=== PATIENT | female | born 1960 | race Caucasian/White ===

== ENCOUNTER → 2018-03-24 12:59 | Outpatient (CLI) | payer OTHER, SELFPAY ==
--- NOTE | 2018-03-24 | DI.CT.S_ITS ---
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 7 mm thick coronal and sagittal MIP reformats were then acquired. For radiation dose reduction, the following was used: automated exposure control, adjustment of mA and/or kV according to patient size. COMPARISON: [facility], CR, CHEST 2 VIEW, 07/08/2017, 11:16. [facility], CT, THORAX WITH CONTRAST, 03/02/2015, 9:47. [facility], CT, PE STUDY (CTA CHEST), 07/22/2015, 20:45. [facility], CT, THORAX WITHOUT CONTRAST, 09/26/2016, 10:33. [facility], CT, THORAX WITHOUT CONTRAST, 03/27/2017, 10:56. FINDINGS: Image quality: Excellent. Lungs and pleura: Right upper lobe nodular consolidation is seen, with ill-defined margins an irregular configuration. However, this appears increased since 03/27/17, in particular involving the upper aspect. Additional subcentimeter nodular foci present within the right middle lobe, and lung bases bilaterally, are unchanged. There are numerous bibasilar cystic changes noted as before. No acute consolidation identified. No pleural effusion or pneumothorax. Mediastinum: Heart size is normal. No pericardial effusion. No mediastinal adenopathy by size criteria. Thoracic aorta and central pulmonary arteries are normal in size. Esophagus is normal in caliber. No hiatal hernia. Bones and chest wall: No suspicious bony lesions. No vertebral body compression fractures. No axillary or supraclavicular adenopathy by size criteria. Thyroid gland grossly unremarkable. Abdomen: Visualized upper abdominal solid organs and bowel loops appear normal in the absence of contrast. IMPRESSION: Continued indolent progression of ill-defined, spiculated nodule within the right upper lobe since 03/27/17. This is again suspicious for malignancy, potentially slowly tumor such as adenocarcinoma, as previously discussed on prior study dated 09/26/16. No pathologically enlarged hilar or mediastinal adenopathy identified. Recommend oncology consultation. Dictated by: Crow Garcia M.D. on 03/24/2018 at 13:22 Approved by: Crow Garcia M.D. on 03/24/2018 at 14:11
== END ==
PROVIDERS: Visit Provider Internal Medicine Critical Care Medicine
DX: J47.0 Bronchiectasis with acute lower respiratory infection (principal); R91.1 Solitary pulmonary nodule
CPT/HCPCS: 71250

== ENCOUNTER → 2018-06-25 08:02 | Outpatient (CLI) | payer OTHER, SELFPAY ==
--- NOTE | 2018-06-25 | DI.MRI.S_ITS ---
PROCEDURE: MR ABDOME PELVIS WWO CON INDICATIONS: Intra-abdominal and pelvic swelling, mass and lump. Additional clinical history indicates a 58-year-old female with lung carcinoma and an incidental finding of a pelvic adnexal cyst on PET CT scanning. Prior PET CT scanning head identifie 3.6 cm left adnexal low attenuation abnormality, indeterminate etiology and possibly a large cyst. TECHNIQUE: After the ingestion of oral contrast, coronal and axial HASTE, coronal 2-D FLASH in-and [id number] sequences. After the administration of contrast, coronal and axial VIBE or 2-D FLASH with fat saturation sequences acquired through the abdomen and pelvis. Optional diffusion weighted imaging and ADC may be performed. COMPARISON: [facility], [place], PET/CT NECK TO MID THIGH, 07/02/2012, 9:11. [facility], CT, CT CHEST WO CON, 03/24/2018, 13:03. FINDINGS: Image quality: Excellent. Bowel and peritoneum: Normal. Solid organs: Liver is normal in size and enhancement. Fatty infiltration throughout the liver. Gallbladder normal. Biliary system is non dilated, without findings to suggest primary sclerosing cholangitis. Pancreas is normal in morphology, without evidence for autoimmune pancreatitis. Spleen is normal in size and enhancement. No adrenal nodules. Both kidneys are normal in size and enhancement, without hydronephrosis. Nodes and vessels: No retroperitoneal or mesenteric adenopathy. Aorta and inferior vena cava are normal in size. Lung bases: No basal pleural effusions. Heart size is normal. Pelvis: No free pelvic fluid. Inferior bowel loops are normal in caliber. No inguinal hernias or adenopathy. The previously identified left adnexal ovoid sharply demarcated structure has enlarged, now currently measuring up to 6.5 cm AP and 4.7 cm transverse in this patient who is presumably postmenopausal at age 58. This cystic mass has a perceptible rim of enhancement without polypoid nodularity. Note is made of sigmoid diverticulosis without acute diverticulitis. Throughout the pelvis no cystic or solid mass lesion suggestive of peritoneal carcinomatosis is found. Bones and soft tissues: No ventral hernias. Bone marrow is normal in overall signal. No findings to suggest sacroiliitis. Femoral heads demonstrate no avascular necrosis. IMPRESSION: There has been interval significant enlargement of a cystic mass lesion at the left adnexa with reference to the prior PET CT scanning from June 2012. At that time the structure present had measured approximately 3.6 cm, and now has further enlarged measuring 6.5 x 4.7 cm. The rim of enhancement is a somewhat worrisome finding but this thin rim is not accompanied by a polypoid mass or evidence of adjacent adenopathy or peritoneal carcinomatosis. Given the presumed postmenopausal status of the patient and the relatively large cystic persistent and slowly enlarging mass at the left ovary followup by gynecological consultation is recommended. Dictated by: Maurice Oquendo M.D. on 06/25/2018 at 11:18 Approved by: Maurice Oquendo M.D. on 06/25/2018 at 11:54
== END ==
PROVIDERS: PCP General Practice; Visit Provider General Practice
DX: R19.00 Intra-abdominal and pelvic swelling, mass and lump, unspecified site (principal); C34.90 Malignant neoplasm of unspecified part of unspecified bronchus or lung
CPT/HCPCS: 72197; A9579

== ENCOUNTER 2018-08-16 13:00 | Emergency (ER) | payer OTHER, SELFPAY ==
[2018-08-16 13:04] VITALS: BP 153/78; PULSE 92; RESP 18; TEMP 36.4; O2SAT 92
--- NOTE | 2018-08-16 13:20 | DI.US.S_ITS ---
PROCEDURE: US PERIPH VENOUS LOW EXTREM LT INDICATIONS: sp lobectomy 08/06: now LLL swelling. in ED WR, may go to US. TECHNIQUE: Real-time imaging, as well as color and pulse Doppler interrogation, were performed of the lower extremity deep veins from the inguinal ligament to the popliteal fossa. COMPARISON: None. FINDINGS: The common femoral, femoral and popliteal veins are normally compressible, and free of intraluminal thrombus. Color and pulse Doppler demonstrate normal phasic intraluminal flow. There is normal augmentation response to distal compression maneuver. Edema noted in the left lower extremity. IMPRESSION: No evidence of deep vein thrombosis involving the left lower extremity. Dictated by: Marley Ellis MD, PhD on 08/16/2018 at 14:31 Approved by: Marley Ellis MD, PhD on 08/16/2018 at 14:31
[2018-08-16 14:33] VITALS: PULSE 88
[2018-08-16 14:34] VITALS: PULSE 88; RESP 18; O2SAT 89
[2018-08-16 14:35] VITALS: O2SAT 94
--- NOTE | 2018-08-16 15:20 | ED.EXTPRO ---
HPI - Extremity Problem <Christina Stein, [employer]ESSION[employer]-BC - Last Filed: 08/16/18 18:09> General Chief complaint: Extremity Problem,Nontraumatic Stated complaint: left foot, ankle, and mid calf swelling 24 hours Time Seen by Provider: 08/16/18 15:02 Source: patient and family Mode of arrival: ambulatory Limitations: no limitations History of Present Illness HPI Narrative: Patient is a 58-year-old female who presents with her with history of lung cancer and subsequent right upper lobe lobectomy on 08/06/2018. She presents with a chief complaint of left lower leg pain and swelling. She states that she noted some pain and swelling prior to being discharged postoperatively, but has gotten worse since her surgery. She called the on-call for CT service, who suggested that she be evaluated for possible DVT. She states that the pain has improved slightly over the past few days, but the swelling has become worse. She denies any chest pain, shortness of breath fever nausea or chills. She states she feels like she is moving well postoperatively and her is in accordance with this. She has not taken anything specifically for the leg pain. Related Data Home Medications Medication Instructions Recorded Confirmed Acyclovir (Zovirax) 400 mg PO Q DAY #0 08/15/09 ibuprofen 800 mg PO PRN #0 09/24/10 [CALCIUM WITH MAG] QDAY #0 05/24/11 fluticasone-salmeterol [Advair 1 puff INH BID #14 dose 05/25/12 Diskus] CA PANTOTHENATE/FOLIC ACID/VIT #0 07/31/12 (MULTIVITAMIN) CHOLECALCIFEROL (VITAMIN D) 2,000 units PO QDAY #0 07/31/12 [STIOLOTO] 2 puff INH Q DAY #0 06/23/17 fluticasone [Flovent HFA] #0 06/23/17 montelukast #0 06/23/17 Previous Rx's Medication Instructions Recorded azithromycin [Zithromax] 250 mg PO Q DAY #4 tab 04/26/16 hydrocodone-acetaminophen [Lortab 10 ml PO Q4HP PRN #100 04/26/16 Elixir] azithromycin [Zithromax Z-Fidel] 0 tab PO QDAY #6 tab 08/26/16 codeine-guaifenesin [Cheratussin 5 ml PO Q4HP PRN #120 ml 08/26/16 AC] albuterol sulfate 3 ml INH Q6HP PRN #25 ea 06/23/17 codeine-guaifenesin [Cheratussin 5 ml PO Q4HP PRN #118 ml 06/23/17 AC] prednisone 40 mg PO Q DAY #6 tab 06/23/17 azithromycin [Zithromax Z-Fidel] 0 tab PO QDAY #6 tab 06/26/17 prednisone 10 mg PO QDAY #45 tab 06/26/17 doxycycline hyclate 100 mg PO Q12H #20 cap 07/01/17 Allergies Allergy/AdvReac Type Severity Reaction Status Date / Time Sulfa (Sulfonamide Allergy Severe RESP Unverified 09/11/17 12:15 Antibiotics) DISTRESS bee pollen [BEE POLLEN] Allergy Unknown Unverified 09/11/17 12:15 Review of Systems <SHAUNA Diaz - Last Filed: 08/16/18 18:09> Review of Systems GENERAL: Denies chills, fatigue, malaise, fever, sweats. HEENT: Denies sinus pain, ear pain, sore throat, difficulty swallowing, dizziness. RESPIRATORY: See HPI CARDIOVASCULAR: Denies chest pain, palpitations, orthopnea, edema, GASTROINTESTINAL: Denies nausea, vomiting, abdominal pain, diarrhea, constipation, melena. : Denies dysuria, frequency, incontinence, hematuria, urinary Musculoskeletal: see HPI SKIN: Denies rash, skin lesions, or other NEUROLOGIC: Denies weakness, headache, numbness, change in speech, confusion, seizures, incoordination. PSYCHIATRIC: No concerning psychosocial issues. 12 point review of systems is negative except for those stated above PFSH <SHAUNA Diaz - Last Filed: 08/16/18 18:09> Surgical History S/P lobectomy of lung (Acute) Social History Smoking Status: Never smoker Social History Smoking Status: Never smoker Exam <JOSE Diaz - Last Filed: 08/16/18 18:09> Narrative Exam Narrative: GENERAL: This is a well-nourished, well-developed patient, in no acute distress HEAD: Atraumatic. Normocephalic. No temporal or scalp tenderness. EYES: Pupils equal round and reactive. Extraocular motions intact. No scleral icterus. No injection or drainage. ENT: Nose without bleeding, purulent drainage or septal hematoma. Throat without erythema, tonsillar hypertrophy or exudate. Uvula midline. Airway patent. NECK: Trachea midline. No JVD or lymphadenopathy. Supple, nontender, no meningeal signs. CARDIOVASCULAR: Regular rate and rhythm without murmurs, gallops, or rubs. RESPIRATORY: Clear to auscultation. Breath sounds equal bilaterally. No wheezes, rales, or rhonchi. On supplemental oxygen. GASTROINTESTINAL: Abdomen soft, non-tender, nondistended. No hepato-splenomegaly, or palpable masses. No guarding. EXTREMITIES: +1 pedal edema noted left foot. No edema noted right foot. Positive pedal pulses bilaterally. No tenderness to palpation of bilateral calves. BACK: Nontender without deformity or crepitance. No flank tenderness. NEURO: AOx3. SKIN: No rash or erythema. No erythema ecchymosis or abrasion noted left lower leg. Initial Vital Signs Initial Vital Signs: Vital Signs Temperature 97.6 F 08/16/18 13:04 Pulse Rate 92 H 08/16/18 13:04 Respiratory Rate 18 08/16/18 13:04 Blood Pressure 153/78 H 08/16/18 13:04 Pulse Oximetry 92 08/16/18 13:04 <Christina Bonilla DO - Last Filed: 08/16/18 19:49> Initial Vital Signs Initial Vital Signs: Vital Signs Temperature 97.6 F 08/16/18 13:04 Pulse Rate 92 H 08/16/18 13:04 Respiratory Rate 18 08/16/18 13:04 Blood Pressure 153/78 H 08/16/18 13:04 Pulse Oximetry 92 08/16/18 13:04 Course <UMA Diaz-BC - Last Filed: 08/16/18 18:09> Orders Ordered: ED Orders 08/16/18 13:20 US periph venous low extrem lt Stat Vital Signs - 8 hr 08/16/18 13:04 08/16/18 14:33 08/16/18 14:34 Temperature 97.6 F Pulse Rate 92 H 88 Pulse Rate [Left Dorsalis Pedis] 88 Respiratory Rate 18 18 Blood Pressure 153/78 H Pulse Oximetry 92 89 L 08/16/18 14:35 08/16/18 15:52 Temperature Pulse Rate 70 Pulse Rate [Left Dorsalis Pedis] Respiratory Rate 18 Blood Pressure 142/80 H Pulse Oximetry 94 92 <Christina Bonilla DO - Last Filed: 08/16/18 19:49> Orders Ordered: ED Orders 08/16/18 13:20 US periph venous low extrem lt Stat Vital Signs - 8 hr 08/16/18 13:04 08/16/18 14:33 08/16/18 14:34 Temperature 97.6 F Pulse Rate 92 H 88 Pulse Rate [Left Dorsalis Pedis] 88 Respiratory Rate 18 18 Blood Pressure 153/78 H Pulse Oximetry 92 89 L 08/16/18 14:35 08/16/18 15:52 Temperature Pulse Rate 70 Pulse Rate [Left Dorsalis Pedis] Respiratory Rate 18 Blood Pressure 142/80 H Pulse Oximetry 94 92 MDM - Extremity (Nontraumatic) <JOSE Diaz - Last Filed: 08/16/18 18:09> Imaging Data Venous US: Radiologist's impression: [place] [address] Ultrasound Report Signed Patient: Maricarmen Scales LMR#: [id number] : 9Acct:[id number] Age/Sex: 58 / FDate of Service: 08/16/18 Loc: ED Accession Number: [id number] Procedure: US periph venous low extrem lt Ordering Provider: Christina Stein PROCEDURE: US PERIPH VENOUS LOW EXTREM LT INDICATIONS: sp lobectomy 08/06: now LLL swelling. in ED WR, may go to US. TECHNIQUE: Real-time imaging, as well as color and pulse Doppler interrogation, were performed of the lower extremity deep veins from the inguinal ligament to the popliteal fossa. COMPARISON: None. FINDINGS: The common femoral, femoral and popliteal veins are normally compressible, and free of intraluminal thrombus. Color and pulse Doppler demonstrate normal phasic intraluminal flow. There is normal augmentation response to distal compression maneuver. Edema noted in the left lower extremity. IMPRESSION: No evidence of deep vein thrombosis involving the left lower extremity. Dictated by: Marley Ellis MD, PhD on 08/16/2018 at 14:31 Approved by: Marley Ellis MD, PhD on 08/16/2018 at 14:31 [facility] Narrative Medical decision making narrative: Patient is a 58-year-old female who is postoperative of a lobectomy who presents with complaint of possible DVT in her left lower leg. She was at high risk given her postoperative status. She did have a negative ultrasound for DVT so we discussed conservative measures at this point time. I discussed at length return precautions including shortness of breath, chest pain, concerned about blood clot. Encouraged rest and elevation. Patient questions or concerns upon discharge and expressed relief with a negative ultrasound. Discharge Plan Departure Patient Disposition: Home Clinical Impression: Left leg pain Discharge Date/Time: 08/16/18 15:53 Interventions: ED Discharge Assessment Last Done: 08/16/18 15:52 Instructions: DI for Leg Pain Activity Restrictions/Additional Instructions: Your ultrasound today was negative for a clot in her left leg. Please continue to elevate her leg as well as take [id number] pain medications as needed and able. Please follow up with your primary care provider and specialist as previously arranged and discussed. Please come back to emergency department for any acute concerns including shortness of breath, concerned about a blood clot, heart attack or stroke. Prescriptions: No Action Acyclovir (Zovirax) 400 mg PO Q DAY Qty: 0 RF: 0 ibuprofen 800 MG tablet 800 mg PO PRN Qty: 0 RF: 0 [CALCIUM WITH MAG] QDAY Qty: 0 RF: 0 fluticasone-salmeterol [Advair Diskus] 500 MCG/50 MCG blister with device 1 puff INH BID Qty: 14 RF: 0 CA PANTOTHENATE/FOLIC ACID/VIT (MULTIVITAMIN) Qty: 0 RF: 0 CHOLECALCIFEROL (VITAMIN D) 2,000 units PO QDAY Qty: 0 RF: 0 azithromycin [Zithromax] 250 MG tablet 250 mg PO Q DAY Qty: 4 RF: 0 hydrocodone-acetaminophen [Lortab Elixir] 10 MG/300 MG solution 10 ml PO Q4HP PRNQty: 100 RF: 0 azithromycin [Zithromax Z-Fidel] 250 MG tablet PO QDAY Qty: 6 RF: 0 codeine-guaifenesin [Cheratussin AC] 118 ML liquid 5 ml PO Q4HP PRNQty: 120 RF: 0 [STIOLOTO] 2 puff INH Q DAY Qty: 0 RF: 0 fluticasone [Flovent HFA] 110 mcg/actuation HFA aerosol inhaler Qty: 0 RF: 0 montelukast 4 MG tablet,chewable Qty: 0 RF: 0 albuterol sulfate 2.5 MG/3 ML solution for nebulization 3 ml INH Q6HP PRNQty: 25 RF: 0 prednisone 20 MG tablet 40 mg PO Q DAY Qty: 6 RF: 0 codeine-guaifenesin [Cheratussin AC] 118 ML liquid 5 ml PO Q4HP PRNQty: 118 RF: 0 prednisone 10 MG tablet 10 mg PO QDAY Qty: 45 RF: 0 azithromycin [Zithromax Z-Fidel] 250 MG tablet PO QDAY Qty: 6 RF: 0 doxycycline hyclate 100 MG capsule 100 mg PO Q12H Qty: 20 RF: 0 Referrals: Clifford Bourgeois MD [Primary Care Provider] - <Christina Bonilla DO - Last Filed: 08/16/18 19:49> Cosign ED Attending Cosignature Attestation: I was immediately available in the department for consultation. This documentation has been reviewed and I agree with assessment and plan. Supervised by Christina Bonilla DO
--- NOTE | 2018-08-16 15:25 | ED_ITS ---
HPI - Extremity Problem <Christina Stein, CLINICAL OPERATIONS LEADER-BC - Last Filed: 08/16/18 18:09> General Chief complaint: Extremity Problem,Nontraumatic Stated complaint: left foot, ankle, and mid calf swelling 24 hours Time Seen by Provider: 08/16/18 15:02 Source: patient and family Mode of arrival: ambulatory Limitations: no limitations History of Present Illness HPI Narrative: Patient is a 58-year-old female who presents with her with history of lung cancer and subsequent right upper lobe lobectomy on 08/06/2018. She presents with a chief complaint of left lower leg pain and swelling. She states that she noted some pain and swelling prior to being discharged postoperatively, but has gotten worse since her surgery. She called the on-call for CT service, who suggested that she be evaluated for possible DVT. She states that the pain has improved slightly over the past few days, but the swelling has become worse. She denies any chest pain, shortness of breath fever nausea or chills. She states she feels like she is moving well postoperatively and her is in accordance with this. She has not taken anything specifically for the leg pain. Related Data Home Medications Medication Instructions Recorded Confirmed Acyclovir (Zovirax) 400 mg PO Q DAY #0 08/15/09 ibuprofen 800 mg PO PRN #0 09/24/10 [CALCIUM WITH MAG] QDAY #0 05/24/11 fluticasone-salmeterol [Advair 1 puff INH BID #14 dose 05/25/12 Diskus] CA PANTOTHENATE/FOLIC ACID/VIT #0 07/31/12 (MULTIVITAMIN) CHOLECALCIFEROL (VITAMIN D) 2,000 units PO QDAY #0 07/31/12 [STIOLOTO] 2 puff INH Q DAY #0 06/23/17 fluticasone [Flovent HFA] #0 06/23/17 montelukast #0 06/23/17 Previous Rx's Medication Instructions Recorded azithromycin [Zithromax] 250 mg PO Q DAY #4 tab 04/26/16 hydrocodone-acetaminophen [Lortab 10 ml PO Q4HP PRN #100 04/26/16 Elixir] azithromycin [Zithromax Z-Fidel] 0 tab PO QDAY #6 tab 08/26/16 codeine-guaifenesin [Cheratussin 5 ml PO Q4HP PRN #120 ml 08/26/16 AC] albuterol sulfate 3 ml INH Q6HP PRN #25 ea 06/23/17 codeine-guaifenesin [Cheratussin 5 ml PO Q4HP PRN #118 ml 06/23/17 AC] prednisone 40 mg PO Q DAY #6 tab 06/23/17 azithromycin [Zithromax Z-Fidel] 0 tab PO QDAY #6 tab 06/26/17 prednisone 10 mg PO QDAY #45 tab 06/26/17 doxycycline hyclate 100 mg PO Q12H #20 cap 07/01/17 Allergies Allergy/AdvReac Type Severity Reaction Status Date / Time Sulfa (Sulfonamide Allergy Severe RESP Unverified 09/11/17 12:15 Antibiotics) DISTRESS bee pollen [BEE POLLEN] Allergy Unknown Unverified 09/11/17 12:15 Review of Systems <SHAUNA Diaz - Last Filed: 08/16/18 18:09> Review of Systems GENERAL: Denies chills, fatigue, malaise, fever, sweats. HEENT: Denies sinus pain, ear pain, sore throat, difficulty swallowing, dizziness. RESPIRATORY: See HPI CARDIOVASCULAR: Denies chest pain, palpitations, orthopnea, edema, GASTROINTESTINAL: Denies nausea, vomiting, abdominal pain, diarrhea, constipation, melena. : Denies dysuria, frequency, incontinence, hematuria, urinary Musculoskeletal: see HPI SKIN: Denies rash, skin lesions, or other NEUROLOGIC: Denies weakness, headache, numbness, change in speech, confusion, seizures, incoordination. PSYCHIATRIC: No concerning psychosocial issues. 12 point review of systems is negative except for those stated above PFSH <SHAUNA Diaz - Last Filed: 08/16/18 18:09> Surgical History S/P lobectomy of lung (Acute) Social History Smoking Status: Never smoker Social History Smoking Status: Never smoker Exam <JOSE Diaz - Last Filed: 08/16/18 18:09> Narrative Exam Narrative: GENERAL: This is a well-nourished, well-developed patient, in no acute distress HEAD: Atraumatic. Normocephalic. No temporal or scalp tenderness. EYES: Pupils equal round and reactive. Extraocular motions intact. No scleral icterus. No injection or drainage. ENT: Nose without bleeding, purulent drainage or septal hematoma. Throat without erythema, tonsillar hypertrophy or exudate. Uvula midline. Airway patent. NECK: Trachea midline. No JVD or lymphadenopathy. Supple, nontender, no meningeal signs. CARDIOVASCULAR: Regular rate and rhythm without murmurs, gallops, or rubs. RESPIRATORY: Clear to auscultation. Breath sounds equal bilaterally. No wheezes, rales, or rhonchi. On supplemental oxygen. GASTROINTESTINAL: Abdomen soft, non-tender, nondistended. No hepato- splenomegaly, or palpable masses. No guarding. EXTREMITIES: +1 pedal edema noted left foot. No edema noted right foot. Positive pedal pulses bilaterally. No tenderness to palpation of bilateral calves. BACK: Nontender without deformity or crepitance. No flank tenderness. NEURO: AOx3. SKIN: No rash or erythema. No erythema ecchymosis or abrasion noted left lower leg. Initial Vital Signs Initial Vital Signs: Vital Signs Temperature 97.6 F 08/16/18 13:04 Pulse Rate 92 H 08/16/18 13:04 Respiratory Rate 18 08/16/18 13:04 Blood Pressure 153/78 H 08/16/18 13:04 Pulse Oximetry 92 08/16/18 13:04 <Christina Bonilla DO - Last Filed: 08/16/18 19:49> Initial Vital Signs Initial Vital Signs: Vital Signs Temperature 97.6 F 08/16/18 13:04 Pulse Rate 92 H 08/16/18 13:04 Respiratory Rate 18 08/16/18 13:04 Blood Pressure 153/78 H 08/16/18 13:04 Pulse Oximetry 92 08/16/18 13:04 Course <UMA Diaz-BC - Last Filed: 08/16/18 18:09> Orders Ordered: ED Orders 08/16/18 13:20 US periph venous low extrem lt Stat Vital Signs - 8 hr 08/16/18 13:04 08/16/18 14:33 08/16/18 14:34 Temperature 97.6 F Pulse Rate 92 H 88 Pulse Rate [Left Dorsalis Pedis] 88 Respiratory Rate 18 18 Blood Pressure 153/78 H Pulse Oximetry 92 89 L 08/16/18 14:35 08/16/18 15:52 Temperature Pulse Rate 70 Pulse Rate [Left Dorsalis Pedis] Respiratory Rate 18 Blood Pressure 142/80 H Pulse Oximetry 94 92 <Christina Bonilla DO - Last Filed: 08/16/18 19:49> Orders Ordered: ED Orders 08/16/18 13:20 US periph venous low extrem lt Stat Vital Signs - 8 hr 08/16/18 13:04 08/16/18 14:33 08/16/18 14:34 Temperature 97.6 F Pulse Rate 92 H 88 Pulse Rate [Left Dorsalis Pedis] 88 Respiratory Rate 18 18 Blood Pressure 153/78 H Pulse Oximetry 92 89 L 08/16/18 14:35 08/16/18 15:52 Temperature Pulse Rate 70 Pulse Rate [Left Dorsalis Pedis] Respiratory Rate 18 Blood Pressure 142/80 H Pulse Oximetry 94 92 MDM - Extremity (Nontraumatic) <JOSE Diaz - Last Filed: 08/16/18 18:09> Imaging Data Venous US: Radiologist's impression: [place] [address] Ultrasound Report Signed Patient: Maricarmen Scales LMR#: [id number] : 9Acct:[id number] Age/Sex: 58 / FDate of Service: 08/16/18 Loc: ED Accession Number: [id number] Procedure: US periph venous low extrem lt Ordering Provider: Christina Steni PROCEDURE: US PERIPH VENOUS LOW EXTREM LT INDICATIONS: sp lobectomy 08/06: now LLL swelling. in ED WR, may go to US. TECHNIQUE: Real-time imaging, as well as color and pulse Doppler interrogation, were performed of the lower extremity deep veins from the inguinal ligament to the popliteal fossa. COMPARISON: None. FINDINGS: The common femoral, femoral and popliteal veins are normally compressible, and free of intraluminal thrombus. Color and pulse Doppler demonstrate normal phasic intraluminal flow. There is normal augmentation response to distal compression maneuver. Edema noted in the left lower extremity. IMPRESSION: No evidence of deep vein thrombosis involving the left lower extremity. Dictated by: Marley Ellis MD, PhD on 08/16/2018 at 14:31 Approved by: Marley Ellis MD, PhD on 08/16/2018 at 14:31 [facility] Narrative Medical decision making narrative: Patient is a 58-year-old female who is postoperative of a lobectomy who presents with complaint of possible DVT in her left lower leg. She was at high risk given her postoperative status. She did have a negative ultrasound for DVT so we discussed conservative measures at this point time. I discussed at length return precautions including shortness of breath, chest pain, concerned about blood clot. Encouraged rest and elevation. Patient questions or concerns upon discharge and expressed relief with a negative ultrasound. Discharge Plan Departure Patient Disposition: Home Clinical Impression: Left leg pain Discharge Date/Time: 08/16/18 15:53 Interventions: ED Discharge Assessment Last Done: 08/16/18 15:52 Instructions: DI for Leg Pain Activity Restrictions/Additional Instructions: Your ultrasound today was negative for a clot in her left leg. Please continue to elevate her leg as well as take [id number] pain medications as needed and able. Please follow up with your primary care provider and specialist as previously arranged and discussed. Please come back to emergency department for any acute concerns including shortness of breath, concerned about a blood clot, heart attack or stroke. Prescriptions: No Action Acyclovir (Zovirax) 400 mg PO Q DAY Qty: 0 RF: 0 ibuprofen 800 MG tablet 800 mg PO PRN Qty: 0 RF: 0 [CALCIUM WITH MAG] QDAY Qty: 0 RF: 0 fluticasone-salmeterol [Advair Diskus] 500 MCG/50 MCG blister with device 1 puff INH BID Qty: 14 RF: 0 CA PANTOTHENATE/FOLIC ACID/VIT (MULTIVITAMIN) Qty: 0 RF: 0 CHOLECALCIFEROL (VITAMIN D) 2,000 units PO QDAY Qty: 0 RF: 0 azithromycin [Zithromax] 250 MG tablet 250 mg PO Q DAY Qty: 4 RF: 0 hydrocodone-acetaminophen [Lortab Elixir] 10 MG/300 MG solution 10 ml PO Q4HP PRNQty: 100 RF: 0 azithromycin [Zithromax Z-Fidel] 250 MG tablet PO QDAY Qty: 6 RF: 0 codeine-guaifenesin [Cheratussin AC] 118 ML liquid 5 ml PO Q4HP PRNQty: 120 RF: 0 [STIOLOTO] 2 puff INH Q DAY Qty: 0 RF: 0 fluticasone [Flovent HFA] 110 mcg/actuation HFA aerosol inhaler Qty: 0 RF: 0 montelukast 4 MG tablet,chewable Qty: 0 RF: 0 albuterol sulfate 2.5 MG/3 ML solution for nebulization 3 ml INH Q6HP PRNQty: 25 RF: 0 prednisone 20 MG tablet 40 mg PO Q DAY Qty: 6 RF: 0 codeine-guaifenesin [Cheratussin AC] 118 ML liquid 5 ml PO Q4HP PRNQty: 118 RF: 0 prednisone 10 MG tablet 10 mg PO QDAY Qty: 45 RF: 0 azithromycin [Zithromax Z-Fidel] 250 MG tablet PO QDAY Qty: 6 RF: 0 doxycycline hyclate 100 MG capsule 100 mg PO Q12H Qty: 20 RF: 0 Referrals: Clifford Bourgeois MD [Primary Care Provider] - <Christina Bonilla DO - Last Filed: 08/16/18 19:49> Cosign ED Attending Cosignature Attestation: I was immediately available in the department for consultation. This documentation has been reviewed and I agree with assessment and plan. Supervised by Christina Bonilla DO
[2018-08-16 15:52] VITALS: BP 142/80; PULSE 70; RESP 18; O2SAT 92
== END 2018-08-16 15:53 | disposition home or self-care (01) ==
PROVIDERS: Emergency Provider Nurse Practitioner Family; PCP General Practice
DX: M79.662 Pain in left lower leg (principal)
CPT/HCPCS: 93971; 99282; 99283

== ENCOUNTER → 2018-09-26 12:59 | Outpatient (CLI) | payer OTHER, SELFPAY ==
[2018-09-22 11:14] VITALS: BMI 34.4
== END ==
PROVIDERS: PCP Family Medicine
DX: C34.91 Malignant neoplasm of unspecified part of right bronchus or lung (principal); Z53.20 Procedure and treatment not carried out because of patient's decision for unspecified reasons

== ENCOUNTER → 2018-09-29 12:50 | Outpatient (CLI) | payer OTHER, SELFPAY ==
[2018-09-22 11:14] VITALS: BMI 34.4
--- NOTE | 2018-09-29 | DI.MRI.S_ITS ---
PROCEDURE: MR HEAD/BRAIN WO/W CON INDICATIONS: RIGHT LUNG CANCER TECHNIQUE: Noncontrast axial T1 spin echo, axial T2 fast spin echo, sagittal and axial FLAIR, coronal T2 fast spin echo, axial gradient echo, axial diffusion and ADC through the brain. After the administration of contrast, axial and coronal 3D VIBE or T1 spin echo with fat saturation through the brain. COMPARISON: [facility], CT, CT CHEST WO CON, 03/24/2018, 13:03. FINDINGS: Image quality: Excellent. CSF Spaces: Basal cisterns are patent. No extra-axial fluid collections. Ventricles are normal in size and shape. Brain: No midline shift. No intracranial bleeds or masses. No abnormal intracranial enhancement. The brainstem appears normal. Diffusion-weighted images demonstrate no acute ischemic insults. No chronic ischemic insults. Normal intravascular flow voids are present. Skull and face: Calvarial marrow is normal in signal. Orbits appear normal. Sinuses: Sinuses and mastoids appear clear. IMPRESSION: Mild microvascular atherosclerotic change in the deep white matter of each hemisphere but no sign of metastatic disease. Dictated by: Maurice Oquendo M.D. on 09/29/2018 at 14:16 Approved by: Maurice Oquendo M.D. on 09/29/2018 at 14:17
== END ==
PROVIDERS: PCP Family Medicine
DX: C34.91 Malignant neoplasm of unspecified part of right bronchus or lung (principal)
CPT/HCPCS: 70553

== ENCOUNTER 2018-11-06 12:57 | Day surgery (SDC) | payer OTHER, SELFPAY ==
[2018-09-22 11:14] VITALS: BMI 34.4
[2018-10-23 09:10] VITALS: BMI 34.0
[2018-11-06] VITALS (9 sets, daily range): BP systolic 150–181; BP diastolic 82–93; PULSE 85–101; RESP 14–18; TEMP 36.3–37.1; O2SAT 95–99; BMI 34.0
--- NOTE | 2018-11-06 | DI.RAD.S_ITS ---
PROCEDURE: XR CHEST 1V INDICATIONS: PORT A CATH TECHNIQUE: One view of the chest was acquired. COMPARISON: Outside Facility, RG, CT PET SKULL BASE TO MID THIGH, 05/28/2018, 8:15. [facility], CR, CHEST 2 VIEW, 07/08/2017, 11:16. FINDINGS: Surgical changes and devices: There is a Port-A-Cath on the right with the tip in SVC.. Lungs and pleura: There is right upper lobectomy. A linear density seen near the apex. Left basilar opacity is likely scars or atelectasis. No pleural effusions or pneumothorax. Mediastinum: Mediastinal contours appear normal. Heart size is normal. Bones and chest wall: No suspicious bony lesions. Overlying soft tissues appear unremarkable. IMPRESSION: Possible right apical pneumothorax. Recommend a short-term followup x-ray to document change. The result was discussed with Dr. Garcia on 10/06/2018 at 1655 hours. Dictated by: Delmi Parmar M.D. on 11/06/2018 at 16:54 Approved by: Delmi Parmar M.D. on 11/06/2018 at 16:58
[2018-11-06] MEDS: LACTATED RINGERS 1,000 ML 100 ML IV (13:45)
--- NOTE | 2018-11-06 15:21 | PM.HP.1 ---
History of Present Illness Date Patient Seen: 11/06/18 Time Patient Seen: 15:21 Chief complaint: [id number] Narrative: The patient is a woman who has never smoked 2 developed right-sided lung cancer. She had a VATS lobectomy and was found to have involvement of nodes. She has non small cell lung cancer. Chemotherapy is planned starting next week and I was asked to place a port. her only significant the past history is of lung disease. She has COPD and uses inhalers. Patient History Medical History Asthma (Acute) Bronchiectasis (Acute) Cough (Acute) Emphysema lung (Acute) Frequent episodes of pneumonia (Acute) GERD (gastroesophageal reflux disease) (Acute) H/O: hysterectomy (Acute) Shortness of breath (Acute) Sinus drainage (Acute) Surgical History History of colonoscopy (Acute) Hx of appendectomy (Acute) Hx of tonsillectomy (Acute) S/P bronchoscopy (Acute 04/06/16) S/P lobectomy of lung (Acute 08/06/18) Social History household members: spouse Smoking Status: Never smoker alcohol intake: never Family & Social History Social History: household members spouse Tobacco & Substance use: Smoking Status Never smoker alcohol intake never alcohol intake frequency 0-2 drinks per day Substance Use Type does not use Meds Home Medications Medication Instructions Recorded Confirmed Type Acyclovir (Zovirax) 400 mg PO Q DAY #0 08/15/09 11/06/18 History ibuprofen 800 mg PO PRN PRN #0 09/24/10 11/06/18 History calcium carbonate [Calcium 500] 500 mg PO DAILY #0 05/24/11 11/03/18 History CA PANTOTHENATE/FOLIC ACID/VIT See Rx Instructions .ROUTE 07/31/12 11/06/18 History (MULTIVITAMIN) .COMPLEX #0 cholecalciferol (vitamin D3) 5,000 unit PO DAILY #0 07/31/12 10/23/18 History [Vitamin D3] Flovent HFA 1 puff INHALATION BID #0 06/23/17 11/06/18 History tiotropium-olodaterol [Stiolto 2 puff INHALATION DAILY #0 06/23/17 11/06/18 History Respimat] azithromycin [Zithromax] 250 mg PO QMWF 10/21/18 11/06/18 History dexamethasone 4 mg PO Q12H 90 Days #24 tab 10/21/18 10/23/18 Rx folic acid 1 mg PO QDAY #30 tab 10/21/18 10/23/18 Rx ondansetron HCl 8 mg PO Q8H PRN #30 tab 10/21/18 10/23/18 Rx albuterol sulfate 3 ml INH Q6HP PRN 10/23/18 10/23/18 History loratadine 10 mg PO DAILY 11/03/18 11/06/18 History Allergies Allergy/AdvReac Type Severity Reaction Status Date / Time bee pollen [BEE POLLEN] Allergy Severe Anaphylaxis Verified 11/06/18 13:47 Sulfa (Sulfonamide Allergy Severe Anaphylaxis Verified 11/06/18 13:47 Antibiotics) Review of Systems Review of Systems All systems reviewed & are unremarkable except as noted in HPI and below Genitourinary Comments: Post hysterectomy for benign disease-fibroids Exam Vital Signs (past 8 hours): - 11/06/18 13:38 Temperature 98.7 F Pulse Rate 88 Respiratory Rate 18 Blood Pressure 150/83 H Pulse Oximetry 99 Oxygen Delivery Method Room Air Narrative Exam Narrative: Operative no apparent distress. Lungs are clear. Heart regular rate and rhythm without murmur gallop. Abdomen is soft nontender without mass. No rashes of the skin on her chest or neck. Patient is left-hand dominant. Lung cancer was on the right. No radiation is planned. Assessment & Plan (1) Non-small cell lung cancer (NSCLC): Current visit: Yes Status: Acute Assessment & Plan narrative: Patient for Port-A-Cath. I have discussed the procedure. I will place it on the right since she is left-hand dominant and radiation is not planned. Also, in the unlikely event of a pneumothorax, it would probably be harder for the right side to collapse. Risks of bleeding, infection, lung collapse, DVT with arm swelling or pulmonary embolism were all discussed. She appears to understand and wishes to proceed.
--- NOTE | 2018-11-06 15:27 | PM.PREOP ---
Pre-operative Note Interval Note History & Physical reviewed/Exam performed by Physician: Yes Changes to H&P: No
--- NOTE | 2018-11-06 15:31 | SUR.OPER ---
Supine on padded OR bed, head on pillow, arms secured on padded arm boards at <90 degrees abduction, legs uncrossed, safety belt at thigh, tape over blanket over lower legs.
[2018-11-06] MEDS: CEFAZOLIN 2 GM/100 ML FROZ.PIGGY IV (15:35)
[2018-11-06] MEDS: HEPARIN 5,000 UNIT, SODIUM CHLORIDE 0.9% 50 ML IV (16:00)
[2018-11-06] MEDS: LIDOCAINE 1% 30 ML INJ INJ (16:05)
--- NOTE | 2018-11-06 16:08 | SUR.OPER ---
Supine on padded OR bed, head on gel donut, towel roll between scapulae, right arm padded and tucked at side, left arm secured on padded arm board, legs uncrossed, safety belt at thigh, tape over blanket over lower legs .
--- NOTE | 2018-11-06 16:36 | PM.OP.1 ---
Operative Date/Time/Diagnoses Date of procedure: 11/06/18 Time of procedure: 16:36 Post-op diagnosis: same Procedure & Clinicians Procedure: Placement of Port-A-Cath for chemotherapy and access Same procedure as scheduled: Yes Indications: Patient in need of chemotherapy for lung cancer. Surgeon: Gianluca Garcia Click Yes if Unassisted: Yes Anesthesia Type: General Operative Notes Findings: Port appears to be in good position in the distal SVC Closure Type: primary Specimen(s): none sent Prosthetic devices, grafts, tissues, transplants, or devices: Port-A-Cath Estimated Blood Loss (mL): 7 Blood products transfused: none Procedure in detail: The patient was placed supine on the operating room table and underwent general LMA anesthesia. A roll was placed between the patient's shoulders. She was prepped and draped in the usual fashion. Local anesthetic was infiltrated beneath the right clavicle in a field block fashion. A transverse incision was made and a pocket created inferior to the incision. A needle was inserted on the 1st attempt into the subclavian vein. A guidewire was passed through it and the needle removed. The guidewire appeared to be in good position. The port and catheter were put together and the port inserted into the pocket. The catheter was tapered to appropriate length. A dilator and introducer were passed over the guidewire. This was done with fluoroscopic visualization. The dilator and guidewire were removed leaving the introducer in place. The catheter was passed through the introducer which was then peeled away. The tip of the catheter was noted to be distal SVC. There was no evidence of a pneumothorax on fluoroscopy. The port was aspirated and flushed with heparinized saline. The port was secured to the chest wall with interrupted 2 0 silk suture. The subcu was closed with interrupted 3 0 Vicryl. The skin was closed with a running 4 0 Vicryl subcuticular stitch, Mastisol and Steri-Strips. Dressing was applied and the patient was taken to the recovery room in good condition. X-ray postprocedure shows a possible pneumothorax. It is a difficult x-ray to interpret. Her right upper lobe has been resected and it is not clear that the lung has completely filled that space. The space does not have the typical appearance of a pneumothorax but there is a long line distant from the apex of the thoracic cavity. It seems to contain some lung markings but not clearly typical. Unfortunately, I do not have a post resection x-ray. I have talked to the radiologist in [facility] and in review of her last x-ray there she had a large apical bleb which I suspect that is what I am seeing. We have asked that the films be and record be pushed to our facility. Condition: stable Disposition: PACU Plan for aftercare: Follow-up in the office
--- NOTE | 2018-11-06 18:00 | DI.RAD.S_ITS ---
PROCEDURE: XR CHEST 1V INDICATIONS: Follow-up possible pneumothorax versus large bleb TECHNIQUE: One view of the chest was acquired. COMPARISON: [facility], CT, CT CHEST WO CON, 03/24/2018, 13:03. [facility], CR, XR CHEST 1V, 11/06/2018, 16:42. FINDINGS: Surgical changes and devices: Surgical clips seen in the right hilum. There is a right chest port with the tip projecting in the mid SVC.. Lungs and pleura: No acute consolidation. Scattered subsegmental atelectasis and/or scarring. No pleural effusions or pneumothorax. Mediastinum: Mediastinal contours appear normal. Heart size is normal. Bones and chest wall: No suspicious bony lesions. Overlying soft tissues appear unremarkable. IMPRESSION: No acute disease. No pneumothorax identified. Dictated by: Crow Garcia M.D. on 11/06/2018 at 18:21 Approved by: Crow Garcia M.D. on 11/06/2018 at 18:23
== END 2018-11-06 18:28 | disposition home or self-care (01) ==
PROVIDERS: PCP Family Medicine; Visit Provider Specialist
PROC: (CPT 36561; principal; 2018-11-06 14:15)
DX: C34.11 Malignant neoplasm of upper lobe, right bronchus or lung (principal); J44.9 Chronic obstructive pulmonary disease, unspecified
CPT/HCPCS: 36561; 71045; 76000; C1788; J0690; J1100; J1644; J2250; J2405; J2704; J3010

== ENCOUNTER 2018-11-27 08:30 | Outpatient (RCR) | payer OTHER, SELFPAY ==
[2018-09-22 11:14] VITALS: BP 156/90; BP 160/98; RESP 14; O2SAT 98; BMI 34.4
--- NOTE | 2018-09-23 16:00 | PR.IEVALNOTE ---
Current Diagnoses Chronic obstructive pulmonary disease, unspecified (09/23/18) Provider Team Visit Care Team Role Provider Type Clifford Bourgeois MD Primary Care Provider Non-Staff Specialty: Family Practice Address: [address] [place] [address], [id number] Email: Mickey Blair MD Attending Provider Non-Staff Specialty: Medical Address: [address] [place] [address], [id number] Email: Pulmonary Rehab Initial Evaluation NV Pulmonary Rehab Inital Assessment Start: 09/22/18 11:08 Freq: Status: Active Protocol: Document 09/22/18 11:14 SRUTHI (Rec: 09/22/18 12:10 SRUTHI [id number]) NV Exercise Assessment Dx: Adenocarcinoma, pulmonary resection-R upper lobe Comment COPD-Bronchiectasis Primary Language KINYARWANDA Teletypewriter Operator Required No Hearing Ability Normal Visual Impairment No Limitations Visual Difficutly None Visual Assist Glasses Body Alignment Posture Good Posture Relaxed Assistive Devices None History of Falling (Immediate or No Previous) Secondary Diagnosis (More Than 2 Medical Yes Diagnoses) Ambulatory Aid None/bed rest/nurse assist IV/Heparin Lock No Gait/Transfer Normal/bedrest/immobile Mental Status Oriented to own ability Comment patient is deconditioned has not exercised in one year NV Vital Signs Pulse Oximetry (91-100 %) 98 Nasal Cannula No Respiratory Rate (12-24 breaths/min) 14 Respiratory Effort Non-Labored Respiratory Depth Normal Assessment slight wheeze in upper left lobe post 6MWT, otherwise clear no rhonchi or crackles normal respiratory effort Right Arm Blood Pressure (90/60-140/90 mmHg) 160/98 H Blood Pressure Method Manual Cuff/Auscultation Blood Pressure Position Sitting Left Arm Blood Pressure (90/60-140/90 mmHg) 156/90 H Blood Pressure Method Manual Cuff/Auscultation Blood Pressure Position Sitting NV Six Minute Walk Test Respiratory Rate (breaths/min) 14 Pulse Rate (beats/min) 95 O2 Saturation by Pulse Oximetry (%) 95 Pulse Rate (beats/min) 110 Ambulation Distance (feet) 300 O2 Saturation by Pulse Oximetry (%) 92 Pulse Rate (beats/min) 123 Ambulation Distance (feet) 300 O2 Saturation by Pulse Oximetry (%) 92 Pulse Rate (beats/min) 132 Ambulatory Distance (feet) 300 O2 Saturation by Pulse Oximetry (%) 92 Pulse Rate (beats/min) 134 Ambulation Distance (feet) 300 O2 Saturation by Pulse Oximetry (%) 92 Pulse Rate (beats/min) 137 Ambulation Distance (feet) 300 O2 Saturation by Pulse Oximetry (%) 90 PUlse Rate (beats/min) 136 Ambulation Distance (feet) 350 O2 Saturation by Pulse Oximetry (%) 88 Respiratory Rate (breaths/min) 16 Pulse Rate (beats/min) 115 O2 Saturation by Pulse Oximetry (%) 98 Activity Tolerance Good Adverse Reactions Pulse Increase > 20 bpm Distance 1750 ft Kelvin RPE Scale 13 Oriented to RPE Scale Yes Dyspnea 3 Oriented to Dyspnea Scale Yes NV Exercise Goals Exercise Goals progress of exercise training volume will result from increases in time, intensity, and frequency. Initial emphasis will be on time Exercise Goals demonstrate proper technique with pursed lip breathing demonstrate paced breath sequencing with resistance training, ADL's, stairs, etc DASI Number and Comment 7.23 mets Short Term recover strength and inmprove stamina [employer] develop confidence in ability to exercise independently NV Nutrition Assessment PFT Date 08/21/18 Forced Vital Capacity (FVC) 2.61 77% Forced Exp. Volume/Forced Vital Cap 74% Ratio (FEV1/FVC Ratio) Forced Expiratory Volume in 1 sec. 1.92 73% Diffusing Capacity of the Lung (DLCO) 92 History of Diabetes No Admit Height 162.56 cm Admit Weight 91.172 kg Admit Body Mass Index (BMI) 34.4 Liters Per Minute at Rest ra Liters per Minute with ADL's ar Liters per Minute with Sleep 2 Liters per Minute with Exercise ra High Energy Periods Morning Tolerates Activity Fair Signs and Symptoms Activity Intolerance Dyspnea on Exertion Fatigue on Exertion Daytime Naps Yes NV Education Pre-Test Score 93 Tobacco Use N/A Use No Concerns None Education Topics Breathing Retraining Discussed Education Requirements on Yes Intake NV Psychosocial Initial Assess HADS Score 2 HADS Score 3 Marital Status Referral Needed No
--- NOTE | 2019-01-14 10:24 | PR.REVALNOTE ---
Current Diagnoses Chronic obstructive pulmonary disease, unspecified (11/27/18) Past Medical History (Last Reviewed 11/06/18 @ 15:22 by Gianluca Garcia MD) Asthma (Acute) Bronchiectasis (Acute) Cough (Acute) Emphysema lung (Acute) Frequent episodes of pneumonia (Acute) GERD (gastroesophageal reflux disease) (Acute) H/O: hysterectomy (Acute) Shortness of breath (Acute) Sinus drainage (Acute) Provider Team Visit Care Team Role Provider Type Clifford Bourgeois MD Primary Care Provider Non-Staff Specialty: [facility] Practice Address: [address] [place] [address], [id number] Email: Mickey Blair MD Attending Provider Non-Staff Specialty: Medical Address: [address] [place] [address], [id number] Email: Pulmonary Rehab Re-Evaluation [place] Pulmonary Rehab. Re-Assessment Start: 09/22/18 11:08 Freq: Status: Active Protocol: Document 12/10/18 13:34 [email or web address] (Rec: 12/10/18 13:34 [facility] [id number]) RI Exercise Re-Assessment New Session Number 1-12 Type Treadmill RADHA Interval Training No Shortness of Breath with Exercise Yes Desaturation with Exercise No RI Psychosocial Re-Assessment Patient in Class Regularly No Document 01/14/19 10:19 SRUTHI (Rec: 01/14/19 10:23 [facility] [id number]) RI Exercise Re-Assessment New Session Number 12-24 Type Nustep Treadmill RADHA METs (resistance level) 4.29TM 4.4 radha Interval Training No Shortness of Breath with Exercise Yes Desaturation with Exercise No Free Weight Yes: 3# 12r 2s Band Level Yes: #3 Toward Target Goals patient is receiving Chemo Tx and the cumulative side effects have made exercise difficult. Patient will resume Pulmonary Rehab after Tx have ended
== END 2018-11-28 10:07 | disposition home or self-care (01) ==
LOC: PUL 08:30
PROVIDERS: PCP General Practice; Visit Provider Internal Medicine Critical Care Medicine
DX: J44.9 Chronic obstructive pulmonary disease, unspecified (principal)
CPT/HCPCS: G0237; G0238

== ENCOUNTER → 2019-01-27 14:07 | Outpatient (CLI) | payer OTHER, SELFPAY ==
[2018-09-22 11:14] VITALS: BMI 34.4
--- NOTE | 2019-01-27 | DI.CT.S_ITS ---
PROCEDURE: CT CHEST W CON INDICATIONS: f/u lung cancer copd TECHNIQUE: After the administration of intravenous contrast, 5 mm thick sections acquired from the pulmonary apices to the posterior costophrenic angles. 1 mm axial lung, 5 mm thick coronal and sagittal reformats and 7 mm axial MIP were acquired. For radiation dose reduction, the following was used: automated exposure control, adjustment of mA and/or kV according to patient size. COMPARISON: [facility], CT, CT CHEST WO [facility], 03/24/2018, 13:03. FINDINGS: Image quality: Excellent. Lungs and pleura: No acute air space opacities. Moderate centrilobular emphysema is seen. A previously noted right upper lobe lobulated mass is no longer seen consistent with interval treatment. No new pulmonary nodule or mass is seen. Linear scarring/atelectasis are seen scattered in bilateral lung gonzalez. 3 mm calcified granuloma is again seen in posterior medial aspect of left lung base unchanged from prior study series 3 image 248. No pleural effusions or pneumothorax. Central and peripheral airways are patent and normal in caliber. Mediastinum: Heart size is normal. No pericardial effusion. No mediastinal or hilar adenopathy by size criteria. Thoracic aorta and central pulmonary arteries are normal in size. Esophagus is normal in caliber. No hiatal hernia. Bones and chest wall: No suspicious bony lesions. No vertebral body compression fractures. No axillary or supraclavicular adenopathy by size criteria. Thyroid gland is unremarkable. Abdomen: Visualized upper abdominal solid organs appear normal. Upper abdominal bowel loops are normal in caliber. There is hepatic steatosis IMPRESSION: 1. Previously described right upper lobe mass is no longer present suggestive of interval treatment. No new pulmonary nodule or mass is seen. Stable calcified granuloma in left lung base. 2. COPD. Bibasilar scarring/atelectasis. 3. No mediastinal or hilar lymphadenopathy. Airway is patent. 4. Hepatic steatosis. Dictated by: Renato Russell M.D. on 01/27/2019 at 15:46 Approved by: Renato Russell M.D. on 01/27/2019 at 15:51
== END ==
PROVIDERS: PCP Family Medicine; Visit Provider Internal Medicine Critical Care Medicine
DX: J44.9 Chronic obstructive pulmonary disease, unspecified (principal); K76.0 Fatty (change of) liver, not elsewhere classified
CPT/HCPCS: 71260; Q9967

== ENCOUNTER 2019-01-28 16:39 | Emergency (ER) | payer OTHER, SELFPAY ==
[2018-09-22 11:14] VITALS: BMI 34.4
[2019-01-28 16:51] VITALS: BP 149/104; PULSE 170; RESP 20; TEMP 37.1; O2SAT 99; BMI 34.3
--- NOTE | 2019-01-28 16:54 | ED_ITS ---
HPI - Arrhythmia/Palpitations General Chief Complaint: Arrhythmia/Palpitations Stated Complaint: Neck tightness,dizzy,elevated HR Time Seen by Provider: 01/28/19 16:51 Source: patient and EMS Mode of arrival: EMS Limitations: no limitations History of Present Illness HPI narrative: 58-year-old female comes to the emergency department with complaint of elevated heart rate. Patient states she had similar symptoms in August, she does not recall the episode she was just postop from a right upper lobectomy for lung cancer and was noted on telemetry that she had elevated heart rate she states she got metoprolol switched to a normal rhythm and then she was put on metoprolol p.o. for 30 days. She was never told to follow-up and has never been told to take any additional metoprolol so she has not. Today she felt tight in her neck, felt hot but did not go away. She denies any presyncope although she felt little lightheaded. No syncope. No chest pain, no shortness of breath. Slightly nauseated but no vomiting, no swelling extremities. She had 1 episode of diarrhea today but bowel movements or otherwise regular. She stopped chemo on January 13, she did not have radiation she states that she was told that her lung cancer has been treated appropriately. She denies any history of blood clots although she has a nephew that had multiple blood clots that require transfer to another hospital. She has COPD which has improved since she had a lobectomy. Related Data Home Medications Medication Instructions Recorded Confirmed ibuprofen 800 mg PO PRN PRN #0 09/24/10 01/13/19 calcium carbonate [Calcium 500] 500 mg PO DAILY #0 05/24/11 01/13/19 CA PANTOTHENATE/FOLIC ACID/VIT See Rx Instructions .ROUTE 07/31/12 01/13/19 (MULTIVITAMIN) .COMPLEX #0 cholecalciferol (vitamin D3) 5,000 unit PO DAILY #0 07/31/12 01/13/19 [Vitamin D3] Stiolto Respimat 2 puff INHALATION DAILY #0 06/23/17 01/28/19 albuterol sulfate 3 ml INH Q6HP PRN 10/23/18 01/13/19 loratadine 10 mg PO DAILY 11/03/18 01/13/19 fluticasone propionate [Flovent 1 puff INHALATION BID 01/28/19 01/28/19 HFA] folic acid 1 mg PO DAILY 01/28/19 01/28/19 Previous Rx's Medication Instructions Recorded ondansetron HCl 8 mg PO Q8H PRN #30 tab 12/23/18 prochlorperazine maleate 10 mg PO Q6H PRN 21 Days #30 tab 12/23/18 [Compazine] metoprolol succinate 25 mg PO BID #60 tab 01/28/19 Allergies Allergy/AdvReac Type Severity Reaction Status Date / Time bee pollen [BEE POLLEN] Allergy Severe Anaphylaxis Verified 01/28/19 16:51 Sulfa (Sulfonamide Allergy Severe Anaphylaxis Verified 01/28/19 16:51 Antibiotics) Review of Systems Review of Systems ROS Unobtainable: All systems reviewed & are unremarkable except as noted in HPI and below PFSH Medical History Asthma (Acute) Bronchiectasis (Acute) Cough (Acute) Emphysema lung (Acute) Frequent episodes of pneumonia (Acute) GERD (gastroesophageal reflux disease) (Acute) H/O: hysterectomy (Acute) Shortness of breath (Acute) Sinus drainage (Acute) Surgical History History of colonoscopy (Acute) Hx of appendectomy (Acute) Hx of tonsillectomy (Acute) S/P bronchoscopy (Acute 04/06/16) S/P lobectomy of lung (Acute 08/06/18) Social History household members: spouse Smoking Status: Never smoker alcohol intake: current Social History household members: spouse Smoking Status: Never smoker alcohol intake: current Exam Narrative Exam Narrative: GENERAL: Alert and oriented x three, obese, well-appearing female in no acute distress. HEENT: Head normocephalic, atraumatic, EOMI, pupils reactive, face symmetric, moist mucous membranes NECK: Supple, full range of motion CARDIOVASCULAR: Tachycardic but regular rate and rhythm without murmurs, rubs or gallops. No JVD, no edema bilateral lower extremities. RESPIRATORY: Breath sounds equal bilaterally, no wheezes rales or rhonchi. ABDOMEN: Soft, nontender. Normoactive bowel sounds all 4 quadrants. No guarding or rebound, rigidity, no mass : No CVA tenderness EXTREMITIES: Normal range of motion, no clubbing or edema. Neurovascularly intact NEUROLOGICAL: Cranial nerves II through XII grossly intact. Moving all extremities SKIN: Warm, dry, no petechiae, no rashes or lesions. Initial Vital Signs Initial Vital Signs: Vital Signs Temperature 98.7 F 01/28/19 16:51 Pulse Rate 170 H 01/28/19 16:51 Respiratory Rate 20 01/28/19 16:51 Blood Pressure 149/104 H 01/28/19 16:51 Pulse Oximetry 99 01/28/19 16:51 Scores HEART Score Heart Score history: Slightly Suspicious Heart Score EKG: Non-Specific repolarization disturbance Heart Score Age: 45-64 years old Heart Score risk factors: No known risk factors Heart Score troponin: < or = to normal limit Heart Score Total: 2 Course Orders Ordered: ED Orders 01/28/19 16:41 EKG-12 Lead Stat 01/28/19 16:59 B Type Natriuretic Peptide Stat Complete Blood Count AUTO DIFF Stat Comprehensive Metabolic Panel Stat Lipase Stat Partial Thromboplastin Time Stat Prothrombin Time INR Stat Troponin & CK Cardiac Panel Stat 01/28/19 17:09 CT angio chest PE protocol Stat 01/28/19 17:28 EKG-12 Lead Stat 01/28/19 18:15 Urine Culture Stat Urine Microscopic Stat Sodium Chloride (Normal Saline 0.9%) 1,000 mls @ 150 mls/hr IV NOW ONE Stop: 01/29/19 00:39 Last Admin: 01/28/19 18:03 Dose: 150 mls/hr Documented by: KYLAH Discontinued Medications Aspirin (Aspirin Chew) 324 mg PO NOW ONE Stop: 01/28/19 16:53 Last Admin: 01/28/19 17:11 Dose: 324 mg Documented by: KYLAH Sodium Chloride (Normal Saline 0.9%) 1,000 mls @ 1,000 mls/hr IV BOLUS ONE Stop: 01/28/19 17:51 Last Infusion: 01/28/19 18:00 Dose: 0 mls/hr Documented by: Admin: 01/28/19 17:03 Dose: 1,000 mls/hr Documented by: KYLAH Metoprolol Tartrate (Lopressor) 5 mg IV NOW ONE Stop: 01/28/19 17:04 Last Admin: 01/28/19 17:11 Dose: 5 mg Documented by: MEISENB Metoprolol Tartrate (Lopressor) 25 mg PO NOW ONE Stop: 01/28/19 18:38 Vital Signs Vital signs: Vital Signs - 8 hr 01/28/19 16:51 01/28/19 17:00 01/28/19 17:21 Temperature 98.7 F Pulse Rate 170 H 97 H 99 H Respiratory Rate 20 20 18 Blood Pressure 149/104 H Blood Pressure [Right Arm] 169/92 H 169/92 H Pulse Oximetry 99 98 96 01/28/19 18:19 Temperature Pulse Rate 93 H Respiratory Rate 16 Blood Pressure Blood Pressure [Right Arm] 162/98 H Pulse Oximetry 95 MDM - Arrhythmia/Palpitations Lab Data Attestation: I reviewed the patient's lab results. Result diagrams: 01/28/19 16:59 01/28/19 16:59 Labs: Lab Results 01/28/19 01/28/19 01/28/19 Range/Units 16:59 16:59 16:59 WBC 4.3 L (4.5-11.0) X10^3/uL RBC 3.74 L (4.0-5.2) X10^6/uL Hgb 12.3 (12.0-16.0) g/dL Hct 36.8 (36-46) % MCV 98.4 (80-100) fL MCH 32.9 (26-34) PG MCHC 33.4 (30-36) % RDW 16.5 H (11.6-14.8) % Plt Count 278 (150-400) X10^3/uL Neut % (Auto) 48.7 L (50-75) % Lymph % (Auto) 36.1 (25-40) % [place] % (Auto) 14.4 H (3-14) % Eos % (Auto) 0.6 L (2-4) % Baso % (Auto) 0.2 (0-2) % Neut # (Auto) 2100 (9785-8885) /uL Lymph # (Auto) 1600 (5186-6972) /uL [place] # (Auto) 600 (0-900) /uL Eos # (Auto) 0 (0-450) /uL Baso # (Auto) 0 (0-100) /uL PT 9.5 L (10.1-12.7) SECONDS INR 0.8 L (0.9-1.3) APTT 28 (26.4-36.2) SECONDS Sodium 140 (137-145) mmol/L Potassium 4.4 (3.4-5.1) mmol/L Chloride 103 (98-107) mmol/L Carbon Dioxide 28 (22-32) mmol/L BUN 14 (7-17) mg/dL Creatinine 0.60 (0.52-1.04) mg/dL Estimated GFR > 60.0 (>60) mL/min BUN/Creatinine Ratio 23.3 H (6-22) Glucose 145 H (70-100) mg/dL Calcium 10.3 H (8.4-10.2) mg/dL Total Bilirubin 0.3 (0.2-1.3) mg/dL AST 34 (14-36) IU/L ALT 51 (9-52) IU/L Alkaline Phosphatase 60 (38-126) U/L Total Creatine Kinase 55 (30-135) U/L CK-MB (CK-2) TNP CK-MB (CK-2) Rel Index TNP Troponin I < 0.012 (0.01-0.034) ng/mL B-Natriuretic Peptide (<100) Total Protein 7.0 (6.3-8.2) g/dL Albumin 4.3 (3.5-5.0) g/dL Globulin 2.7 (1.7-4.1) g/dL Albumin/Globulin Ratio 1.6 (1.0-2.8) Lipase 99 (23-300) U/L Urine RBC (0-5/HPF) Urine WBC (0-5/HPF) Ur Squamous Epith Cells (0-5/HPF) Urine Bacteria (None) Ur Culture Indicated? Micro UA Comment 01/28/19 01/28/19 Range/Units 16:59 18:15 WBC (4.5-11.0) X10^3/uL RBC (4.0-5.2) X10^6/uL Hgb (12.0-16.0) g/dL Hct (36-46) % MCV (80-100) fL MCH (26-34) PG MCHC (30-36) % RDW (11.6-14.8) % Plt Count (150-400) X10^3/uL Neut % (Auto) (50-75) % Lymph % (Auto) (25-40) % [place] % (Auto) (3-14) % Eos % (Auto) (2-4) % Baso % (Auto) (0-2) % Neut # (Auto) (2885-7007) /uL Lymph # (Auto) (8026-4550) /uL [place] # (Auto) (0-900) /uL Eos # (Auto) (0-450) /uL Baso # (Auto) (0-100) /uL PT (10.1-12.7) SECONDS INR (0.9-1.3) APTT (26.4-36.2) SECONDS Sodium (137-145) mmol/L Potassium (3.4-5.1) mmol/L Chloride (98-107) mmol/L Carbon Dioxide (22-32) mmol/L BUN (7-17) mg/dL Creatinine (0.52-1.04) mg/dL Estimated GFR (>60) mL/min BUN/Creatinine Ratio (6-22) Glucose (70-100) mg/dL Calcium (8.4-10.2) mg/dL Total Bilirubin (0.2-1.3) mg/dL AST (14-36) IU/L ALT (9-52) IU/L Alkaline Phosphatase (38-126) U/L Total Creatine Kinase (30-135) U/L CK-MB (CK-2) CK-MB (CK-2) Rel Index Troponin I (0.01-0.034) ng/mL B-Natriuretic Peptide < 100 (<100) Total Protein (6.3-8.2) g/dL Albumin (3.5-5.0) g/dL Globulin (1.7-4.1) g/dL Albumin/Globulin Ratio (1.0-2.8) Lipase (23-300) U/L Urine RBC None seen (0-5/HPF) Urine WBC 1-5/hpf (0-5/HPF) Ur Squamous Epith Cells 1-5 /hpf (0-5/HPF) Urine Bacteria Few (2-10) H (None) Ur Culture Indicated? Specimen cultured Micro UA Comment Suzan esterase + Urine Dip Bedside Urine Glucose Negative Bedside Urine Bilirubin - Negative Bedside Urine Ketone - Negative Urine Specific Watson 1.010 Bedside Urine Occult Blood - Negative Bedside Urine pH 7.5 Bedside Urine Protein - Negative Bedside Urine Urobilinogen - Negative Bedside Urine Nitrite - Negative Bedside Urine Leukocytes + [address] scan - chest: Radiologist's impression: Maricarmen Scales 58 F [address] [address] [address] Scan Report Signed Patient: Maricarmen Scales LMR#: [id number] : [id number]:[id number] Age/Sex: 58 / FDate of Service: 01/28/19 Loc: ED Accession Number: [id number] Procedure: CT angio chest PE protocol Ordering Provider: Christina Bonilla D.O. PROCEDURE: CT ANGIO CHEST PE PROTOCOL INDICATIONS: new onset flutter, hx lobectomy for lung ca TECHNIQUE: After the administration of intravenous contrast, 2 mm thick sections acquired from the pulmonary apices to the posterior costophrenic angles. 3-dimensional maximum intensity projection (MIP) coronal and sagittal reformats were then acquired through the thorax. For radiation dose reduction, the following was used: automated exposure con trol, adjustment of mA and/or kV according to patient size. COMPARISON: [facility], CT, CT CHEST W CON, 01/27/2019, 14:21. FINDINGS: Image quality: Excellent. Pulmonary arteries: Pulmonary arteries are normal in size, and demonstrate no intraluminal filling defects to suggest central pulmonary embolism. Lungs and pleura: Post treatment changes in the right upper lung field again seen. Moderate centrilobular emphysema is again noted. Scarring/atelectasis in bilateral lower lung gonzalez are again seen. Bilateral lung appearance is not significantly changed from previous day. No pleural effusions or pneumothorax. Central and peripheral airways are patent. Mediastinum: Heart size is normal, without pericardial effusion. No mediastinal or hilar adenopathy. Thoracic aorta is normal in caliber and enhancement. Esophagus is normal in caliber, without hiatal hernia. Bones and chest wall: No suspicious bony lesions. Ribs and thoracic spine appear intact throughout. Thyroid gland is within normal limits. No axillary or supraclavicular adenopathy. Abdomen: Visualized upper abdominal solid organs appear normal in the early arterial phase of enhancement. Hepatic steatosis is again seen. IMPRESSION: 1. No evidence of pulmonary emboli. No thoracic aortic aneurysm or dissection. 2. Moderate centrilobular emphysema. Post surgical changes and right upper lung field. Bibasilar scarring/atelectasis. Airway is patent. 3. No gross mediastinal or hilar lymphadenopathy. Dictated by: Renato Russell M.D. on 01/28/2019 at 18:21 Approved by: Renato Russell M.D. on 01/28/2019 at 18:24 ECG Data Attestation: I personally reviewed and interpreted this ECG as follows: Prior ECG tracings: available for review Interpretation: Atrial flutter with rapid ventricular response with a rate of 163 QRS 88 QTC of 346. No ST elevation or depression appreciated. EKG 2. Shows a sinus rhythm, rate of 97, IL 188, QRS of [address] changes appreciated. Patient has prior EKG from 08/26/16 that appears similar. [facility] Narrative Medical decision making narrative: Patient comes in with atrial flutter with rapid ventricular response, she cardioverted with 5 mg metoprolol IV. She had aspirin 324 mg. Lab work does not show any major abnormalities, CT PE protocol because she has had recent cancer and chemotherapy was negative for PE shows moderate centrilobular emphysema which is again noted. Patient is feeling much better. I spoke with Cardiology they recommend metoprolol succinate 25 mg p.o. b.i.d., at minimum an aspirin 81 mg and further conversation about on anticoagulation and follow up with Cardiology. Patient is comfortable with the plan. Discharge Plan Departure Patient Disposition: Home Clinical Impression: Atrial flutter with rapid ventricular response Instructions: DI for Atrial Flutter Activity Restrictions/Additional Instructions: Follow up with cardiology in the next 1-2 weeks, call for an appointment. Start metoprolol 25mg twice daily. Cardiology recommends an 81mg aspirin, they may discuss a stronger blood thinner at your appointment. Make sure you are staying hydrated. Return to the ER for fevers greater 100.4 F, recurrent symptoms, palpitations, lightheadedness, passing out, new chest pain, shortness of breath, persistent vomiting, black or bloody stools or other new or concerning symptoms Prescriptions: New metoprolol succinate 25 mg tablet extended release 24 hr 25 mg PO BID Qty: 60 RF: 0 No Action ibuprofen 800 MG tablet 800 mg PO PRN PRN (Reason: Pain) Qty: 0 RF: 0 calcium carbonate [Calcium 500] 500 mg calcium (1,250 mg) Tablet 500 mg PO DAILY Qty: 0 RF: 0 cholecalciferol (vitamin D3) [Vitamin D3] 5,000 unit Tablet 5,000 unit PO DAILY Qty: 0 RF: 0 CA PANTOTHENATE/FOLIC ACID/VIT (MULTIVITAMIN) See Rx Instructions .ROUTE .COMPLEX Qty: 0 RF: 0 Stiolto Respimat 2.5-2.5 mcg/actuation Mist 2 puff INHALATION DAILY Qty: 0 RF: 0 albuterol sulfate 2.5 MG/3 ML solution for nebulization 3 ml INH Q6HP PRN (Reason: COPD, shortness of breath) RF: 0 loratadine 10 mg Capsule 10 mg PO DAILY RF: 0 ondansetron HCl 8 mg Tablet 8 mg PO Q8H PRN (Reason: Nausea) Qty: 30 RF: 0 prochlorperazine maleate [Compazine] 10 mg Tablet 10 mg PO Q6H PRN (Reason: Nausea) 21 Days Qty: 30 RF: 1 Flovent HFA 220 mcg/actuation HFA aerosol inhaler 1 puff INHALATION BID RF: 0 folic acid 1 mg tablet 1 mg PO DAILY RF: 0 Referrals: Joy Ferrera MD [Primary Care Provider] - Blair Reddy MD [Physician] -
--- NOTE | 2019-01-28 16:55 | PC.NURSE ---
pt woke up with tightness of neck, rested, not better, called 911. on evaluation 170's. denies chest pain, shortness of breath, denies fever, vomiting, +diarrhea without blood. hx of similar sxs august, with surgery, right upper lobectomy, had 4 rounds of chemo, last 01/13. had follow up ct yesterday. now only has shaking inside and palpitation.
[2019-01-28 17:00] VITALS: BP 169/92; PULSE 97; RESP 20; O2SAT 98
[2019-01-28] MEDS: SODIUM CHLORIDE 0.9% 1,000 ML 1000 ML IV (17:03)
[2019-01-28 17:08] LABS: Add Manual Diff / Slide Review NO; Basophils Absolute Auto 0 /uL (0-100); Basophils Percent Auto 0.2 % (0-2); Eosinophils Absolute Auto 0 /uL (0-450); Eosinophils Percent Auto 0.6 % (2-4); Hematocrit 36.8 % (36-46); Hemoglobin 12.3 g/dL (12.0-16.0); Lymphocytes Absolute Auto 1600 /uL (1100-4500); Lymphocytes Percent Auto 36.1 % (25-40); Mean Corpuscular HGB Conc 33.4 % (30-36); Mean Corpuscular Hemoglobin 32.9 PG (26-34); Mean Corpuscular Volume 98.4 fL (80-100); Monocytes Absolute Auto 600 /uL (0-900); Monocytes Percent Auto 14.4 % (3-14); Neutrophils Absolute Auto 2100 /uL (1500-7000); Neutrophils Percent Auto 48.7 % (50-75); Platelet Count 278 X10^3/uL (150-400); Red Blood Cell Count 3.74 X10^6/uL (4.0-5.2); Red Cell Distribution Width 16.5 % (11.6-14.8); White Blood Cell Count 4.3 X10^3/uL (4.5-11.0)
--- NOTE | 2019-01-28 17:09 | DI.CT.S_ITS ---
PROCEDURE: CT ANGIO CHEST PE PROTOCOL INDICATIONS: new onset flutter, hx lobectomy for lung ca TECHNIQUE: After the administration of intravenous contrast, 2 mm thick sections acquired from the pulmonary apices to the posterior costophrenic angles. 3-dimensional maximum intensity projection (MIP) coronal and sagittal reformats were then acquired through the thorax. For radiation dose reduction, the following was used: automated exposure control, adjustment of mA and/or kV according to patient size. COMPARISON: [facility], CT, CT CHEST W [facility], 01/27/2019, 14:21. FINDINGS: Image quality: Excellent. Pulmonary arteries: Pulmonary arteries are normal in size, and demonstrate no intraluminal filling defects to suggest central pulmonary embolism. Lungs and pleura: Post treatment changes in the right upper lung field again seen. Moderate centrilobular emphysema is again noted. Scarring/atelectasis in bilateral lower lung gonzalez are again seen. Bilateral lung appearance is not significantly changed from previous day. No pleural effusions or pneumothorax. Central and peripheral airways are patent. Mediastinum: Heart size is normal, without pericardial effusion. No mediastinal or hilar adenopathy. Thoracic aorta is normal in caliber and enhancement. Esophagus is normal in caliber, without hiatal hernia. Bones and chest wall: No suspicious bony lesions. Ribs and thoracic spine appear intact throughout. Thyroid gland is within normal limits. No axillary or supraclavicular adenopathy. Abdomen: Visualized upper abdominal solid organs appear normal in the early arterial phase of enhancement. Hepatic steatosis is again seen. IMPRESSION: 1. No evidence of pulmonary emboli. No thoracic aortic aneurysm or dissection. 2. Moderate centrilobular emphysema. Post surgical changes and right upper lung field. Bibasilar scarring/atelectasis. Airway is patent. 3. No gross mediastinal or hilar lymphadenopathy. Dictated by: Renato Russell M.D. on 01/28/2019 at 18:21 Approved by: Renato Russell M.D. on 01/28/2019 at 18:24
[2019-01-28] MEDS: ASPIRIN 81 MG CHEW TAB 324 MG PO (17:11)
[2019-01-28] MEDS: METOPROLOL TARTRATE 5 MG/5 ML INJ IV (17:11)
[2019-01-28 17:17] LABS: INR 0.8 (0.9-1.3); Prothrombin Time 9.5 SECONDS (10.1-12.7)
[2019-01-28 17:20] LABS: Alanine Aminotransferase 51 IU/L (9-52); Albumin 4.3 g/dL (3.5-5.0); Albumin Globulin Ratio 1.6 (1.0-2.8); Alkaline Phosphatase 60 U/L (38-126); Aspartate Aminotransferase 34 IU/L (14-36); BUN Creatinine Ratio 23.3 (6-22); Bilirubin Total 0.3 mg/dL (0.2-1.3); Blood Urea Nitrogen 14 mg/dL (7-17); Calcium 10.3 mg/dL (8.4-10.2); Carbon Dioxide 28 mmol/L (22-32); Chloride 103 mmol/L (98-107); Creatine Kinase 55 U/L (30-135); Estimated Glomerular Filt Rate > 60.0 mL/min (>60); Globulin 2.7 g/dL (1.7-4.1); Glucose 145 mg/dL (70-100); HEMOLYSIS < 15 (0-50); Lipase 99 U/L (23-300); PTT Partial Thromboplastin Tim 28 SECONDS (26.4-36.2); Potassium 4.4 mmol/L (3.4-5.1); Sodium 140 mmol/L (137-145)
[2019-01-28 17:21] VITALS: BP 169/92; PULSE 99; RESP 18; O2SAT 96
[2019-01-28 17:31] LABS: Troponin I < 0.012 ng/mL (0.01-0.034)
[2019-01-28 17:49] LABS: B Type Natriuretic Peptide < 100 (<100)
[2019-01-28] MEDS: SODIUM CHLORIDE 0.9% 1,000 ML 150 ML IV (18:03)
[2019-01-28 18:19] VITALS: BP 162/98; PULSE 93; RESP 16; O2SAT 95
--- NOTE | 2019-01-28 18:19 | PC.NURSE ---
pt feeling better, at this time, asymptomatic
[2019-01-28 18:33] LABS: RBC Urine None Seen (0-5/HPF)
[2019-01-28 18:40] LABS: Bacteria Urine Few (2-10); Culture Indicated Urine Specimen Cultured; Squamous Epithelial Cell Urine 1-5 /HPF (0-5/HPF); WBC Urine 1-5/HPF (0-5/HPF)
[2019-01-28 18:41] LABS: Urine Comments LEU ESTERASE +
[2019-01-28 18:53] VITALS: BP 139/92; PULSE 97; RESP 18; O2SAT 94
[2019-01-28] MEDS: METOPROLOL IR 25 MG TABLET PO (18:54)
== END 2019-01-28 18:56 | disposition home or self-care (01) ==
PROVIDERS: Emergency Provider Emergency Medicine; PCP Family Medicine
DX: I48.92 Unspecified atrial flutter (principal)
CPT/HCPCS: 36415; 71275; 80053; 81003; 81015; 82550; 83690; 83880; 84484; 85025; 85610; 85730; 87086; 93005; 93041; 96361; 96374; 99285; Q9967

== ENCOUNTER 2019-06-15 12:04 | Day surgery (SDC) | payer OTHER, SELFPAY ==
[2019-03-19 16:15] VITALS: BMI 34.3
[2019-06-04 09:39] VITALS: BMI 34.0
[2019-06-15] VITALS (8 sets, daily range): BP systolic 121–146; BP diastolic 70–81; PULSE 60–77; RESP 10–94; TEMP 36–37.1; O2SAT 95–99; BMI 34.0
[2019-06-15] MEDS: LACTATED RINGERS 1,000 ML 42 ML IV (12:22)
--- NOTE | 2019-06-15 12:56 | PM.HP.1 ---
History of Present Illness History of Present Illness Date Patient Seen: 06/15/19 Time Patient Seen: 12:40 Chief complaint: [id number] Narrative: The patient is a woman who is post lobectomy and chemotherapy for lung cancer. She is done with her port in his here for removal of it. Patient History Medical History Asthma (Acute) Atrial flutter (Acute ~01/2019) Bronchiectasis (Acute) Chemotherapy-induced neuropathy (Acute) Cough (Acute) Emphysema lung (Acute) Frequent episodes of pneumonia (Acute) GERD (gastroesophageal reflux disease) (Acute) Port-A-Cath in place (Acute 11/06/18) Ringing of ears (Acute) Shortness of breath (Acute) Sinus drainage (Acute) Surgical History H/O: hysterectomy (Acute) History of colonoscopy (Acute) Hx of appendectomy (Acute) Hx of tonsillectomy (Acute) S/P bronchoscopy (Acute 04/06/16) S/P lobectomy of lung (Acute 08/06/18) Family & Social History Social History: household members spouse Tobacco & Substance use: Smoking Status Never smoker alcohol intake never alcohol intake frequency 0-2 drinks per day Substance Use Type does not use Meds Home Medications and Allergies Home Medications Medication Instructions Recorded Confirmed Type calcium carbonate [Calcium 500] 500 mg PO DAILY #0 05/24/11 06/15/19 History cholecalciferol (vitamin D3) 5,000 unit PO DAILY #0 07/31/12 06/15/19 History [Vitamin D3] Stiolto Respimat 2 puff INHALATION DAILY #0 06/23/17 06/15/19 History albuterol sulfate 3 ml INH Q6HP PRN 10/23/18 06/15/19 History loratadine 10 mg PO DAILY 11/03/18 06/15/19 History fluticasone propionate [Flovent 1 puff INHALATION BID 01/28/19 06/15/19 History HFA] metoprolol succinate 25 mg PO BID #60 tab 01/28/19 06/15/19 Rx aspirin 81 mg PO DAILY 02/24/19 06/15/19 History hydrochlorothiazide 25 mg PO DAILY 05/19/19 06/15/19 History Allergies Allergy/AdvReac Type Severity Reaction Status Date / Time bee pollen [BEE POLLEN] Allergy Severe Anaphylaxis Verified 06/15/19 12:21 Sulfa (Sulfonamide Allergy Severe Anaphylaxis Verified 06/15/19 12:21 Antibiotics) Review of Systems Review of Systems Narrative: Patient denies any cough or cold. No chest pain or heart problems at this time. No black or bloody bowel movements. No seizures blackouts. Exam Vital Signs (past 8 hours): - 06/15/19 12:34 06/15/19 12:43 Temperature 97.1 F L 97.1 F L Pulse Rate 71 71 Respiratory Rate 20 20 Blood Pressure 138/75 138/75 Pulse Oximetry 99 99 Oxygen Delivery Method Room Air Narrative Exam Narrative: Cooperative in no apparent distress. There are no nodes in the neck or supraclavicular areas. Lungs are clear to auscultation without rales or rhonchi. Decreased breath sounds in the right apex compared to the left. Heart regular rate and rhythm without murmur gallop. No cellulitis or rashes of the chest wall specifically in the area of the port. port is located in the right infraclavicular fossa Assessment & Plan Assessment & Plan narrative: History of treatment for lung cancer. Here for port removal. I discussed the procedure including risks of bleeding infection and the possibility of a divot being there in the place of the port when I'm finished. All questions were answered.
--- NOTE | 2019-06-15 12:59 | PM.PREOP ---
Pre-operative Note Interval Note History & Physical reviewed/Exam performed by Physician: Yes Changes to H&P: No
[2019-06-15] MEDS: CEFAZOLIN 2 GM/100 ML FROZ.PIGGY IV (13:00)
--- NOTE | 2019-06-15 13:19 | SUR.OPER ---
Supine on padded OR bed, head on pillow, right arm padded and tucked at side, left arm at less than 90degrees to abduction on padded armboard, legs uncrossed, safety belt at thigh, tape over blanket over lower legs .
[2019-06-15] MEDS: BUPIVACAINE 0.5% (PF) VIAL 30 ML INJ (13:25)
--- NOTE | 2019-06-15 13:37 | PM.OP.1 ---
Operative Date/Time/Diagnoses Date of procedure: 06/15/19 Time of procedure: 13:37 Pre-op diagnosis: History of chemotherapy for lung cancer. Port-A-Cath no longer in use. Post-op diagnosis: same Procedure & Clinicians Procedure: Removal Port-A-Cath Same procedure as scheduled: Yes Indications: Port-A-Cath no longer in use Surgeon: Gianluca Garcia Click Yes if Unassisted: Yes Anesthesia Type: General Operative Notes Findings: Port removed intact. Closure Type: primary Specimen(s): none sent Prosthetic devices, grafts, tissues, transplants, or devices: None inserted Estimated Blood Loss (mL): 5 Blood products transfused: none Procedure in detail: Patient was placed supine on the operating room table underwent general LMA anesthesia. She was prepped draped in the usual fashion. Local anesthetic was infiltrated in field block fashion around the port. Incision was made through the old scar. Was carried down level the port. The catheter was from surrounding structures. A U-stitch was placed around it and the catheter removed and the stitch tied to close the channel. The port was then dissected out from its soft tissue surroundings. A portion of the back wall was removed with the port. the subcu was closed with interrupted 3 0 Vicryl. The skin was closed with a running 4 0 Vicryl subcuticular stitch and Steri-Strips. Dressing was applied patient tolerated the procedure well. Complications: none Post-operative Condition: stable Disposition: PACU
== END 2019-06-15 15:51 | disposition home or self-care (01) ==
PROVIDERS: PCP Family Medicine; Visit Provider Specialist
PROC: (CPT 36590; principal; 2019-06-15 13:15)
DX: Z45.2 Encounter for adjustment and management of vascular access device (principal); Z85.118 Personal history of other malignant neoplasm of bronchus and lung; J45.909 Unspecified asthma, uncomplicated; I48.92 Unspecified atrial flutter; J43.9 Emphysema, unspecified
CPT/HCPCS: 36590; J0690; J2250; J2704; J3010

== ENCOUNTER → 2019-06-30 16:19 | Outpatient (CLI) | payer OTHER, SELFPAY ==
[2019-03-19 16:15] VITALS: BMI 34.3
--- NOTE | 2019-06-30 16:21 | DI.MG.S_ITS ---
BILATERAL DIGITAL SCREENING MAMMOGRAM 3D/2D WITH CAD: 06/30/2019 CLINICAL: Routine screening. Comparison is made to exams dated: 01/02/2016 mammogram, 12/27/2016 mammogram, and 04/28/2018 mammogram - [facility]. There are scattered fibroglandular elements in both breasts. Current study was also evaluated with a Computer Aided Detection (CAD) system. No significant masses, calcifications, or other findings are seen in either breast. There has been no significant interval change. IMPRESSION: NEGATIVE There is no mammographic evidence of malignancy. A 1 year screening mammogram is recommended. This exam was interpreted at Station ID: [id number]. NOTE: For mammograms, a report in lay terms will be sent to the patient. Approximately 15% of breast malignancies will not be visualized mammographically. In the management of a palpable breast mass, a negative mammogram must not discourage biopsy of a clinically suspicious lesion. Electronically Signed By: Mateo greer/connie:06/30/2019 16:53:18 letter sent: Normal Exam ACR BI-RADS Category 1: Negative [id number]
== END ==
PROVIDERS: PCP Family Medicine; Visit Provider Family Medicine
DX: Z12.31 Encounter for screening mammogram for malignant neoplasm of breast (principal)
CPT/HCPCS: 77063; 77067

== ENCOUNTER → 2019-07-21 12:58 | Outpatient (CLI) | payer OTHER, SELFPAY ==
[2019-03-19 16:15] VITALS: BMI 34.3
--- NOTE | 2019-07-21 | DI.CT.S_ITS ---
PROCEDURE: CT CHEST WO CON INDICATIONS: Malignant neoplasm of upper lobe, right bronchus or lung TECHNIQUE: Noncontrast 5 mm thick sections acquired from the pulmonary apices to the posterior costophrenic angles. 1 mm lung window, 5 mm thick coronal and sagittal and 7 mm axial MIP reformats were then acquired. For radiation dose reduction, the following was used: automated exposure control, adjustment of mA and/or kV according to patient size. COMPARISON: [facility], CT, CT ANGIO CHEST PE PROTOCOL, 01/28/2019, 17:39. [facility], CT, CT CHEST WO CON, 03/24/2018, 13:03. FINDINGS: Image quality: Excellent. Lungs and pleura: There are stable postoperative changes of right upper lobectomy, and the area of prior operative intervention shows expected hyperexpansion with superimposed emphysematous change. On the left, however, there are 2 new areas of airspace disease worrisome for representing independent foci of primary neoplasm. The first is located abutting the highest margin of the major fissure on the left, centered on series 3 image 90, comprised of both a central solid component and a peripheral alveolar component measuring overall approximately 1.6 cm in diameter, with the alveolar component larger in the immediate adjacent lung parenchyma. More inferiorly within the posterolateral left lower lobe a similar mass with faint alveolar halo surrounding measures approximately 1.3 cm, is spiculated, and is near the adjacent pleural surface. No pleural effusions or pneumothorax. Central and peripheral airways are patent and normal in caliber. Mediastinum: Heart size is normal. No pericardial effusion. No mediastinal adenopathy by size criteria. Thoracic aorta and central pulmonary arteries are normal in size. Esophagus is normal in caliber. No hiatal hernia. Bones and chest wall: No suspicious bony lesions. No vertebral body compression fractures. No axillary or supraclavicular adenopathy by size criteria. Thyroid gland is not well-seen. Abdomen: Visualized upper abdominal solid organs and bowel loops appear normal in the absence of contrast. IMPRESSION: Next 1. Stable postoperative change after right upper lobectomy. No recurrent neoplasm in that area of operative intervention is identified. 2. Left upper lobe new mass lesion with adjacent alveolar infiltration measuring approximately 1.6 cm in maximal dimension (for the solid component). This appearance is worrisome for representing a new primary bronchogenic carcinoma. 3. Left lower lobe new mass lesion with mild adjacent alveolar infiltration measuring approximately 1.3 cm in maximal dimension (for the solid component). This also is worrisome for representing a new independent primary focus of echogenic carcinoma. 4. Study is performed without contrast. No mediastinal or hilar adenopathy is seen. Emphysematous change is present in this patient superimposed. Dictated by: Maurice Oquendo M.D. on 07/21/2019 at 14:07 Approved by: Maurice Oquendo M.D. on 07/21/2019 at 14:16
== END ==
PROVIDERS: PCP Family Medicine; Referring Provider Internal Medicine Critical Care Medicine; Visit Provider Internal Medicine Critical Care Medicine
DX: C34.11 Malignant neoplasm of upper lobe, right bronchus or lung (principal); R91.8 Other nonspecific abnormal finding of lung field
CPT/HCPCS: 71250

== ENCOUNTER 2019-07-27 10:00 | Outpatient (RCR) | payer OTHER, SELFPAY ==
[2018-09-22 11:14] VITALS: BMI 34.4
[2019-03-19 16:15] VITALS: BP 148/88; BMI 34.3
--- NOTE | 2019-03-23 12:17 | PR.IEVALNOTE ---
Current Diagnoses Chronic obstructive pulmonary disease, unspecified (03/23/19) Past Medical History (Last Reviewed 01/28/19 @ 18:45 by Christina Boinlla DO) Asthma (Acute) Bronchiectasis (Acute) Cough (Acute) Emphysema lung (Acute) Frequent episodes of pneumonia (Acute) GERD (gastroesophageal reflux disease) (Acute) Shortness of breath (Acute) Sinus drainage (Acute) Visit Care Team Role Provider Type Joy Ferrera MD Primary Care Provider Non-Staff Specialty: Family Practice Address: [address] [place] [address], [phone] Email: Mickey Blair MD Attending Provider Non-Staff Specialty: Pulmonology Address: [address] [place] [address], [id number] Email: Pulmonary Rehab Initial Evaluation [place] Pulmonary Rehab Inital Assessment Start: 03/17/19 12:38 Freq: Status: Active Protocol: Document 03/19/19 16:15 SRUTHI (Rec: 03/19/19 16:19 Bernice [id number]) [place] Exercise Assessment Dx: Lung resection- non-small cell lung cancer Comment Brochiectasis Primary Language 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 No Hearing Ability Normal Visual Impairment No Limitations Visual Difficutly None Visual Assist Glasses Body Alignment Posture Good Posture,Relaxed Assistive Devices None Comment patient denies barriers to exercise and states that she feels she can exercise independently once she is comfortable with exercise through participation in pulmonary rehabilitation Comment yoga [place] Vital Signs Nasal Cannula No Comment: 98 Respiratory Effort Non-Labored Respiratory Depth Normal Assessment clear to auscultation no wheeze rales or rhonchi, absent URL Left Arm Blood Pressure (90/60-140/90 mmHg) 148/88 H Blood Pressure Method Manual Cuff/Auscultation [place] Six Minute Walk Test Oxygen Delivery Method Room Air Respiratory Rate (breaths/min) 14 Pulse Rate (beats/min) 94 O2 Saturation by Pulse Oximetry (%) 98 Pulse Rate (beats/min) 121 Ambulation Distance (feet) 300 O2 Saturation by Pulse Oximetry (%) 93 Pulse Rate (beats/min) 120 Ambulation Distance (feet) 250 O2 Saturation by Pulse Oximetry (%) 89 Pulse Rate (beats/min) 133 Ambulatory Distance (feet) 350 O2 Saturation by Pulse Oximetry (%) 90 Pulse Rate (beats/min) 136 Ambulation Distance (feet) 300 O2 Saturation by Pulse Oximetry (%) 89 Pulse Rate (beats/min) 145 Ambulation Distance (feet) 300 O2 Saturation by Pulse Oximetry (%) 89 PUlse Rate (beats/min) 136 Ambulation Distance (feet) 350 O2 Saturation by Pulse Oximetry (%) 89 Respiratory Rate (breaths/min) 14 Pulse Rate (beats/min) 100 O2 Saturation by Pulse Oximetry (%) 96 Activity Tolerance Good Adverse Reactions Pulse Increase > 20 bpm, Increased Shortness of Breath Distance 1850 Kelvin RPE Scale 13 Oriented to RPE Scale Yes Dyspnea 4 Oriented to Dyspnea Scale Yes [place] Exercise Goals DASI Number and Comment 5.04 [place] Pulmonary Rehab Orientation Complete Complete Yes [place] Nutrition Assessment PFT Date 10/01/17 Forced Vital Capacity (FVC) 2.61 77 Forced Exp. Volume/Forced Vital Cap 74 Ratio (FEV1/FVC Ratio) Forced Expiratory Volume in 1 sec. 1.92 73% Diffusing Capacity of the Lung (DLCO) 20.2 92% Admit Height 162.56 cm Admit Weight 90.718 kg Admit Body Mass Index (BMI) 34.3 [place] Education Pre-Test Score 93% Tobacco Use N/A Use No Concerns None Discussed Education Requirements on Yes Intake [place] Psychosocial Initial Assess HADS Score 1 HADS Score 4 Marital Status marries Referral Needed No Target Goals Progression of exercise training volume will result from increases in time, intensity and frequency. Initial emphasis will be on increasing time Physician Comment Ready for Pulmonary Rehabilitation Cooperative,Motivated
--- NOTE | 2019-04-20 10:14 | PR.REVALNOTE ---
Current Diagnoses Chronic obstructive pulmonary disease, unspecified (04/20/19) Past Medical History (Last Reviewed 01/28/19 @ 18:45 by Christina Bonilla DO) Asthma (Acute) Bronchiectasis (Acute) Cough (Acute) Emphysema lung (Acute) Frequent episodes of pneumonia (Acute) GERD (gastroesophageal reflux disease) (Acute) Shortness of breath (Acute) Sinus drainage (Acute) Visit Care Team Role Provider Type Joy Ferrera MD Primary Care Provider Non-Staff Specialty: Family Practice Address: [address] [place] [address], [id number] Email: Mickey Blair MD Attending Provider Non-Staff Specialty: Pulmonology Address: [address] [place] [address], [id number] Email: Pulmonary Rehab Re-Evaluation [place] Pulmonary Rehab. Re-Assessment Start: 03/17/19 12:38 Freq: Status: Active Protocol: Document 04/20/19 09:37 SRUTHI (Rec: 04/20/19 10:14 SRUTHI [id number]) [place] Exercise Re-Assessment Type Nustep,Treadmill,BioDex METs (resistance level) 9.09 strdr 5.97NS 6,61TM % Improvement 15%strdr 88%NS 53%TM Interval Training Yes Shortness of Breath with Exercise Yes Desaturation with Exercise No Free Weight Yes: 5# 12r 2s Band Level Yes: #4 Intervention Initiate independent exercise with weight bearing activities AR Education Re-Assessment Topics Breathing Retraining,Benefits of Exercise,Activities of daily living/Leisure Activities,Coping with Chronic Lung Disease Goals Pt will Master PLB and Diaphragmatic Breathing,Pt will Master Energy Conserving Techniques,Pt will learn exercise safety,Pt will continue ED topics until completion [place] Psychosocial Re-Assessment Patient in Class Regularly Yes Interventions Pt attending class regularly Goals Pt will continue to attend classes 3x wk,Participate in social and educational discussion,Received emotional support from family/friends
--- NOTE | 2019-05-21 16:12 | PR.REVALNOTE ---
Current Diagnoses Chronic obstructive pulmonary disease, unspecified (05/21/19) Past Medical History (Last Reviewed 01/28/19 @ 18:45 by Christina Bonilla DO) Asthma (Acute) Bronchiectasis (Acute) Cough (Acute) Emphysema lung (Acute) Frequent episodes of pneumonia (Acute) GERD (gastroesophageal reflux disease) (Acute) Shortness of breath (Acute) Sinus drainage (Acute) Visit Care Team Role Provider Type Joy Ferrera MD Primary Care Provider Non-Staff Specialty: Family Practice Address: [address] [place] [address], [phone] Email: Mickey Blair MD Attending Provider Non-Staff Specialty: Pulmonology Address: [address] [place] [address], [id number] Email: Pulmonary Rehab Re-Evaluation [place] Pulmonary Rehab. Re-Assessment Start: 03/17/19 12:38 Freq: Status: Active Protocol: Document 04/20/19 09:37 SRUTHI (Rec: 04/20/19 10:14 SRUTHI [id number]) [place] Exercise Re-Assessment Type Nustep,Treadmill,BioDex METs (resistance level) 9.09 strdr 5.97NS 6,61TM % Improvement 15%strdr 88%NS 53%TM Interval Training Yes Shortness of Breath with Exercise Yes Desaturation with Exercise No Free Weight Yes: 5# 12r 2s Band Level Yes: #4 Intervention Initiate incependent exercise with weight bearing activities [place] Education Re-Assessment Topics Breathing Retraining,Benefits of Exercise,Activities of daily living/Leisure Activities,Coping with Chronic Lung Disease Goals Pt will Master PLB and Diaphragmatic Breating,Pt will Master Energy Conserving Techniques,Pt will learn exercise safety,Pt will continue ED topics until completion [place] Psychosocial Re-Assessment Patient in Class Regularly Yes Interventions Pt attending class regularly Goals Pt will continue to attend classes 3x wk,Participate in social and educational discussion,Received emotional support from family/friends Document 05/21/19 16:05 SRUTHI (Rec: 05/21/19 16:12 SRUTHI [id number]) [place] Exercise Re-Assessment Type Treadmill,BioDex METs (resistance level) 8.55 TM 10.50 STRDR % Improvement 29% TM 15% STRDR Interval Training Yes Shortness of Breath with Exercise Yes Desaturation with Exercise No Free Weight Yes: 6# 12R 2S Band Level Yes: #5 BAND Intervention Initiate independent exercise 1-2X /week no progress Toward Target Goals Recovery time between HIIT - showing progress [place] Nutrition Re-Assessment Patient Discussion Yes: appraiser art providing monthly instruction Goals Pt will continue focusing on weight loss,Pt will continue to learn tips [place] Education Re-Assessment Topics Normal Anatomy and Physiology, Chronic Lung Disease, Description and Interpretation Medical Tests,Breathing Retraining,Benefits of Exercise,Activities of daily living/Leisure Activities, Eating Right,Irritant Avoidance/Prevention of Respiratory Infections,Coping with Chronic Lung Disease Goals Pt will Master PLB and Diaphragmatic Breathing,Pt will Master Energy Conserving Techniques,Pt will learn exercise safety,Pt will continue ED topics until completion [place] Psychosocial Re-Assessment Patient in Class Regularly Yes Interventions Pt attending class regularly Goals Pt will continue to attend classes 3x wk,Participate in social and educational discussion,Received emotional support from family/friends
--- NOTE | 2019-08-26 11:31 | PR.REVALNOTE ---
Current Diagnoses Chronic obstructive pulmonary disease, unspecified (07/27/19) Past Medical History (Last Reviewed 06/15/19 @ 12:56 by Gianluca Garcia MD) Asthma (Acute) Atrial flutter (Acute ~01/2019) Bronchiectasis (Acute) Chemotherapy-induced neuropathy (Acute) Cough (Acute) Emphysema lung (Acute) Frequent episodes of pneumonia (Acute) GERD (gastroesophageal reflux disease) (Acute) Port-A-Cath in place (Acute 11/06/18) Ringing of ears (Acute) Shortness of breath (Acute) Sinus drainage (Acute) Visit Care Team Role Provider Type Joy Ferrera MD Primary Care Provider Non-Staff Specialty: Family Practice Address: [address] [place] [address], [id number] Email: Mickey Blair MD Attending Provider Non-Staff Specialty: Pulmonology Address: [address] [place] [address], [id number] Email: Pulmonary Rehab Re-Evaluation [place] [facility] Re-Assessment Start: 03/17/19 12:38 Freq: Status: Active Protocol: Document 04/20/19 09:37 SRUTHI (Rec: 04/20/19 10:14 SRUTHI [id number]) [place] Exercise Re-Assessment Type Nustep,Treadmill,BioDex METs (resistance level) 9.09 strdr 5.97NS 6,61TM % Improvement 15%strdr 88%NS 53%TM Interval Training Yes Shortness of Breath with Exercise Yes Desaturation with Exercise No Free Weight Yes: 5# 12r 2s Band Level Yes: #4 Intervention Initiate incependent exercise with weight bearing activities [place] Education Re-Assessment Topics Breathing Retraining,Benefits of Exercise,Activities of daily living/Leisure Activities,Coping with Chronic Lung Disease Goals Pt will Master PLB and Diaphragmatic Breating,Pt will Master Energy Conserving Techniques,Pt will learn exercise safety,Pt will continue ED topics until completion [place] Psychosocial Re-Assessment Patient in Class Regularly Yes Interventions Pt attending class regularly Goals Pt will continue to attend classes 3x wk,Participate in social and educational discussion,Received emotional support from family/friends Document 05/21/19 16:05 SRUTHI (Rec: 05/21/19 16:12 SRUTHI [id number]) [place] Exercise Re-Assessment Type Treadmill,BioDex METs (resistance level) 8.55 TM 10.50 STRDR % Improvement 29% TM 15% STRDR Interval Training Yes Shortness of Breath with Exercise Yes Desaturation with Exercise No Free Weight Yes: 6# 12R 2S Band Level Yes: #5 BAND Intervention Initiate independent exercise 1-2X /week no progress Toward Target Goals Recovery time between HIIT - showing progress [place] Nutrition Re-Assessment Patient Discussion Yes: convention planner providing monthy instruction Goals Pt will continue focusing on weight loss,Pt will continue to learn tips [place] Education Re-Assessment Topics Normal Anatomy and Physiology, Chronic Lung Disease, Description and Interpretation Medical Tests,Breathing Retraining,Benefits of Exercise,Activities of daily living/Leisure Activities, Eating Right,Irritant Avoidance/Prevention of Respiratory Infections,Coping with Chronic Lung Disease Goals Pt will Master PLB and Diaphragmatic Breating,Pt will Master Energy Conserving Techniques,Pt will learn exercise safety,Pt will continue ED topics until completion [place] Psychosocial Re-Assessment Patient in Class Regularly Yes Interventions Pt attending class regularly Goals Pt will continue to attend classes 3x wk,Participate in social and educational discussion,Received emotional support from family/friends Document 07/01/19 16:06 SRUTHI (Rec: 07/01/19 16:09 [facility] [id number]) [place] Exercise Re-Assessment Type Nustep,Treadmill,BioDex METs (resistance level) 7.96NS 8.93TM 9.03STRDR Interval Training Yes: 10.09TM 9.11NS Shortness of Breath with Exercise Yes Desaturation with Exercise No Document 08/26/19 11:30 SRUTHI (Rec: 08/26/19 11:31 [facility] [id number]) [place] Psychosocial Re-Assessment Additional Comment unable to assess patient due to closure of Pulmonary Rehabilitation as a result of the Covid-19 pandemic
== END 2019-07-27 11:00 ==
LOC: PUL 10:00
PROVIDERS: PCP Family Medicine; Visit Provider Internal Medicine Critical Care Medicine
DX: J44.9 Chronic obstructive pulmonary disease, unspecified (principal)
CPT/HCPCS: G0237; G0238; G0424

== ENCOUNTER 2019-08-30 07:12 | Emergency (ER) | payer OTHER, SELFPAY ==
[2019-03-19 16:15] VITALS: BMI 34.3
[2019-08-30] VITALS (8 sets, daily range): BP systolic 140–176; BP diastolic 62–79; PULSE 68–93; RESP 12–30; TEMP 36.4; O2SAT 93–95; BMI 33.3
--- NOTE | 2019-08-30 07:38 | DI.RAD.S_ITS ---
PROCEDURE: XR CHEST 2V INDICATIONS: shortness of breath TECHNIQUE: 2 views of the chest were acquired. COMPARISON: [facility], CT, CT CHEST WO CON, 07/21/2019, 13:01. [facility], CT, CT ANGIO CHEST PE PROTOCOL, 01/28/2019, 17:39. [facility], CT, CT CHEST W CON, 01/27/2019, 14:21. [facility], CR, XR CHEST 1V, 11/06/2018, 16:42. [facility], CR, XR CHEST 1V, 11/06/2018, 18:00. FINDINGS: Surgical changes and devices: The previously seen right-sided chest port has been removed. Postoperative change from right sided lobectomy are better seen on prior CT studies. Lungs and pleura: Lungs are clear. No pleural effusions or pneumothorax. The lungs are hyperexpanded, with flattening of the hemidiaphragms seen. Mediastinum: Mediastinal contours are normal. Heart size is normal. Bones and chest wall: No suspicious bony abnormalities. Age-appropriate bony degenerative changes are seen. Soft tissues appear unremarkable. IMPRESSION: No acute cardiopulmonary process is seen. Dictated by: Gregor Theodore M.D. on 08/30/2019 at 7:35 Approved by: Gregor Theodore M.D. on 08/30/2019 at 7:38
[2019-08-30 07:46] LABS: Add Manual Diff / Slide Review NO; Basophils Absolute Auto 0 /uL (0-100); Basophils Percent Auto 0.6 % (0-2); Eosinophils Absolute Auto 100 /uL (0-450); Eosinophils Percent Auto 0.8 % (2-4); Hematocrit 40.8 % (36-46); Hemoglobin 13.8 g/dL (12.0-16.0); Lymphocytes Absolute Auto 2000 /uL (1100-4500); Lymphocytes Percent Auto 26.9 % (25-40); Mean Corpuscular HGB Conc 33.8 % (30-36); Mean Corpuscular Hemoglobin 33.1 PG (26-34); Mean Corpuscular Volume 97.8 fL (80-100); Monocytes Absolute Auto 700 /uL (0-900); Monocytes Percent Auto 9.5 % (3-14); Neutrophils Absolute Auto 4500 /uL (1500-7000); Neutrophils Percent Auto 62.2 % (50-75); Platelet Count 231 X10^3/uL (150-400); Red Blood Cell Count 4.18 X10^6/uL (4.0-5.2); Red Cell Distribution Width 13.2 % (11.6-14.8); White Blood Cell Count 7.3 X10^3/uL (4.5-11.0)
--- NOTE | 2019-08-30 07:51 | ED_ITS ---
HPI - SOB/Dyspnea General Chief Complaint: Shortness of Breath/Dyspnea Stated Complaint: LOWER LEFT LUNG PAIN Source: patient Mode of arrival: Ambulatory Limitations: no limitations History of Present Illness HPI Narrative: HPI: The patient is a 59 year old female who woke up this morning at approximately 6:00 a.m. with left-sided sharp stabbing pleuritic chest pain. The pain and discomfort felt identical to previous pleurisy. She describes the discomfort as a hot poker on deep breathing and coughing. At rest she has minimal to no back pain or discomfort. On deep breathing the pain is 8/10 in nature. It does not radiate anywhere. The pain is located in the left lateral posterior lung. She has had no significant coughing. She went to bed feeling fine last night without any respiratory distress. She has had no fever chills sweats. She admits to history of COPD and asthma. She has had blebs in her lungs and bronchiectasis. She states that her COPD is genetic with brothers and sisters having at also. She is not positive for alpha 1 anti trypsin. She has never had a pulmonary embolism. 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 This was removed in August of 2018. She finished her chemotherapy in January 2019. She had a recent CT scan at [facility] in [facility] which was abnormal but her oncologist performed a PET scan which was normal in revealed no evidence of metastasis. She went to [place] July 30 through August 08. On July she attended birthday green party for her son-in-law and a friend of theirs from the arm was positive for co video 19. No one else at the green party has subsequently developed symptoms or been tested positive. She denies any 5 fever new cough arm. She has never smoked cigarettes. She rarely drinks alcohol does not use any drugs. She denies any fever chills sweats headache sore throat nasal drainage. She has no shortness of breath normally and she had does not have a productive cough. She has had no palpitations dizziness abdominal pain nausea vomiting d iarrhea. She has had no urinary symptoms. Related Data Home Medications Medication Instructions Recorded Confirmed calcium carbonate [Calcium 500] 500 mg PO DAILY #0 05/24/11 07/02/19 cholecalciferol (vitamin D3) 5,000 unit PO DAILY #0 07/31/12 07/02/19 [Vitamin D3] Stiolto Respimat 2 puff INHALATION DAILY #0 06/23/17 07/02/19 albuterol sulfate 3 ml INH Q6HP PRN 10/23/18 07/02/19 loratadine 10 mg PO DAILY 11/03/18 07/02/19 Flovent HFA 1 puff INHALATION BID 01/28/19 07/02/19 aspirin 81 mg PO DAILY 02/24/19 07/02/19 hydrochlorothiazide 25 mg PO DAILY 05/19/19 07/02/19 Previous Rx's Medication Instructions Recorded metoprolol succinate 25 mg PO BID #60 tab 01/28/19 hydrocodone-acetaminophen [[place]] 1 tab PO Q4H PRN #10 tab 06/15/19 cyclobenzaprine 10 mg PO TID PRN #15 tab 08/30/19 hydrocodone-acetaminophen [[place]] 1 tab PO Q6H PRN #10 tab 08/30/19 naproxen [Naprosyn] 500 mg PO BID PRN #20 tab 08/30/19 Allergies Allergy/AdvReac Type Severity Reaction Status Date / Time bee pollen [BEE POLLEN] Allergy Severe Anaphylaxis Verified 08/30/19 07:34 Sulfa (Sulfonamide Allergy Severe Anaphylaxis Verified 08/30/19 07:34 Antibiotics) Review of Systems Review of Systems Narrative: Her review of systems are all negative except for those mentioned in history of present illness. Patient History Medical History Asthma (Acute) Atrial flutter (Acute ~01/2019) Bronchiectasis (Acute) Chemotherapy-induced neuropathy (Acute) Cough (Acute) Emphysema lung (Acute) Frequent episodes of pneumonia (Acute) GERD (gastroesophageal reflux disease) (Acute) Port-A-Cath in place (Acute 11/06/18) Ringing of ears (Acute) Shortness of breath (Acute) Sinus drainage (Acute) Surgical History H/O: hysterectomy (Acute) History of colonoscopy (Acute) Hx of appendectomy (Acute) Hx of tonsillectomy (Acute) S/P bronchoscopy (Acute 04/06/16) S/P lobectomy of lung (Acute 08/06/18) Social History household members: spouse Smoking Status: Never smoker alcohol intake: never Smoking Status: Never smoker alcohol intake frequency: 0-2 drinks per day Substance Use Type: does not use Exam Narrative Exam Narrative: PHYSICAL EXAM: CONSTITUTIONAL: Awake, Alert, Oriented, Coherent, Cooperative in NAD. Does not appear toxic or ill. HEAD: AT/NC EENT: PERRL, FROM of eyes, No epistaxis or nasal drainage Oral mucosa is moist and pink, posterior pharynx is without erythema or exudate. NECK: Supple, no obvious JVD, Trachea is midline without stridor, no palpable LN or masses. SPINE: No gross deformity, no palpable tenderness of the cervical, thoracic, lumbar or sacral spine. No CVA tenderness. THORAX: No deformity, retractions, chest wall tenderness. LUNGS: Patient's breath sounds are symmetrical. Her right sided breath sounds are clear. The patient has crackles in her left lower lateral posterior lung field. HEART: Normal heart tones, regular rhythm and rate without murmur. ABDOMEN: Abdomen is soft nontender no palpable masses. There is no guarding rebound or rigidity. EXTREMITIES: No edema, cyanosis, deformity or tenderness. SKIN: No rash, bruising, petechiae or purpura. NEURO: Awake, alert, oriented, conversive, cranial nerves II-XII are symmetrical , moves all 4 extremities and is ambulatory Initial Vital Signs Initial Vital Signs: Vital Signs Temperature 97.5 F L 08/30/19 07:34 Pulse Rate 76 08/30/19 07:34 Respiratory Rate 30 H 08/30/19 07:34 Blood Pressure 172/77 H 08/30/19 07:34 Pulse Oximetry 94 08/30/19 07:34 Course Course Course Narrative: 10:30 there is no acute cardiopulmonary process seen in the patient's chest x-ray. WBC is 7.3, hemoglobin is 13.8 hematocrit is 40.8, ESR is elevated at 38 D-dimer is 225, lactate is 1.2 glucose is 115, EGFR is greater than 60, C reactive protein is 3.1, troponin is less than 0.012. AST is 50 ALT is 87 bilirubin is 0.4 10:40 on re-evaluation the patient feels much better and her chest pain is sign ificantly improved on the Toradol. She was informed that this is most likely consistent with pleurisy as she has had before in the past. She was in destructed that if she develops worsening shortness of breath, fever, cough, she needs to return to the emergency department to be re-evaluated. Orders Ordered: Discontinued Medications Ketorolac Tromethamine (Toradol) 30 mg IV NOW ONE Stop: 08/30/19 08:12 Last Admin: 08/30/19 08:55 Dose: 30 mg Documented by: HOOD Vital Signs Vital signs: Vital Signs - 8 hr 08/30/19 07:34 08/30/19 08:30 08/30/19 09:00 Temperature 97.5 F L Pulse Rate 76 71 77 Respiratory Rate 30 H 15 21 Blood Pressure 172/77 H Blood Pressure [Right Arm] 170/79 H 176/75 H Pulse Oximetry 94 95 93 08/30/19 09:30 08/30/19 10:00 Temperature Pulse Rate 68 72 Respiratory Rate 12 18 Blood Pressure Blood Pressure [Right Arm] 154/72 H 141/62 H Pulse Oximetry 94 94 MDM - SOB/Dyspnea Lab Data Result diagrams: 08/30/19 07:29 08/30/19 07:29 Labs: Lab Results 08/30/19 08/30/19 08/30/19 Range/Units 07:29 07:29 07:29 WBC 7.3 (4.5-11.0) X10^3/uL RBC 4.18 (4.0-5.2) X10^6/uL Hgb 13.8 (12.0-16.0) g/dL Hct 40.8 (36-46) % MCV 97.8 (80-100) fL MCH 33.1 (26-34) PG MCHC 33.8 (30-36) % RDW 13.2 (11.6-14.8) % Plt Count 231 (150-400) X10^3/uL Neut % (Auto) 62.2 (50-75) % Lymph % (Auto) 26.9 (25-40) % [place] % (Auto) 9.5 (3-14) % Eos % (Auto) 0.8 L (2-4) % Baso % (Auto) 0.6 (0-2) % Neut # (Auto) 4500 (5958-6455) /uL Lymph # (Auto) 2000 (3468-1513) /uL [place] # (Auto) 700 (0-900) /uL Eos # (Auto) 100 (0-450) /uL Baso # (Auto) 0 (0-100) /uL ESR 38 H (0-20) MM/HR D-Dimer (<230) ng/mL Sodium 139 (137-145) mmol/L Potassium 4.0 (3.4-5.1) mmol/L Chloride 104 (98-107) mmol/L Carbon Dioxide 28 (22-32) mmol/L BUN 20 H (7-17) mg/dL Creatinine 0.70 (0.52-1.04) mg/dL Estimated GFR > 60.0 (>60) mL/min BUN/Creatinine Ratio 28.6 H (6-22) Glucose 115 H (80-110) mg/dL Lactate (0.7-2.1) mmol/L Calcium 10.3 H (8.4-10.2) mg/dL Total Bilirubin 0.4 (0.2-1.3) mg/dL AST 50 H (14-36) IU/L ALT 87 H (<35) IU/L Alkaline Phosphatase 66 (38-126) U/L Total Creatine Kinase (30-135) U/L Troponin I (0.01-0.034) ng/mL C-Reactive Protein (<1.0) mg/dL Total Protein 7.6 (6.3-8.2) g/dL Albumin 4.4 (3.5-5.0) g/dL Globulin 3.2 (1.7-4.1) g/dL Albumin/Globulin Ratio 1.4 (1.0-2.8) 08/30/19 08/30/19 08/30/19 Range/Units 07:29 07:29 08:25 WBC (4.5-11.0) X10^3/uL RBC (4.0-5.2) X10^6/uL Hgb (12.0-16.0) g/dL Hct (36-46) % MCV (80-100) fL MCH (26-34) PG MCHC (30-36) % RDW (11.6-14.8) % Plt Count (150-400) X10^3/uL Neut % (Auto) (50-75) % Lymph % (Auto) (25-40) % [place] % (Auto) (3-14) % Eos % (Auto) (2-4) % Baso % (Auto) (0-2) % Neut # (Auto) (6181-3333) /uL Lymph # (Auto) (6302-9390) /uL [place] # (Auto) (0-900) /uL Eos # (Auto) (0-450) /uL Baso # (Auto) (0-100) /uL ESR (0-20) MM/HR D-Dimer 225 (<230) ng/mL Sodium (137-145) mmol/L Potassium (3.4-5.1) mmol/L Chloride (98-107) mmol/L Carbon Dioxide (22-32) mmol/L BUN (7-17) mg/dL Creatinine (0.52-1.04) mg/dL Estimated GFR (>60) mL/min BUN/Creatinine Ratio (6-22) Glucose (80-110) mg/dL Lactate 1.2 (0.7-2.1) mmol/L Calcium (8.4-10.2) mg/dL Total Bilirubin (0.2-1.3) mg/dL AST (14-36) IU/L ALT (<35) IU/L Alkaline Phosphatase (38-126) U/L Total Creatine Kinase 51 (30-135) U/L Troponin I < 0.012 (0.01-0.034) ng/mL C-Reactive Protein 3.1 H (<1.0) mg/dL Total Protein (6.3-8.2) g/dL Albumin (3.5-5.0) g/dL Globulin (1.7-4.1) g/dL Albumin/Globulin Ratio (1.0-2.8) Discharge Plan Departure Patient Disposition: Home Clinical Impression: Pleuritic chest pain, Pleurisy Non-small cell lung cancer (NSCLC) Qualifiers: Laterality: right Qualified Code(s): C34.91 - Malignant neoplasm of unspecified part of right bronchus or lung Discharge Date/Time: 08/30/19 11:08 Instructions: DI for Atypical Chest Pain, DI for Pleurisy Activity Restrictions/Additional Instructions: 1. Follow up and be re-evaluated by your primary care physician or oncologist in 48-72 hours if not better. 2. If you develop worsening pain, fever, dizziness lightheadedness feelings of being faint or passing-out, productive cough with increased pain and discomfort you need to proceed to the nearest emergency department to be re-evaluated. 3. Your chest x-ray did not reveal any acute infection or pulmonary abnormality. Your D-dimer did not revealed that you had any evidence of a pulmonary embolism or blood clot in your chest. 4. For pain and discomfort take the Naprosyn 500 mg twice a day as prescribed and needed. 5. For severe pain unrelieved by the Naprosyn taken [place] 5/325 as a rescue medication. Prescriptions: New naproxen [Naprosyn] 500 mg tablet 500 mg PO BID PRN (Reason: pain) Qty: 20 RF: 0 cyclobenzaprine 10 mg tablet 10 mg PO TID PRN (Reason: muscle spasm) Qty: 15 RF: 0 hydrocodone-acetaminophen [[place]] 5-325 mg tablet 1 tab PO Q6H PRN (Reason: pain) Qty: 10 RF: 0 No Action calcium carbonate [Calcium 500] 500 mg calcium (1,250 mg) Tablet 500 mg PO DAILY Qty: 0 RF: 0 cholecalciferol (vitamin D3) [Vitamin D3] 5,000 unit Tablet 5,000 unit PO DAILY Qty: 0 RF: 0 Stiolto Respimat 2.5-2.5 mcg/actuation Mist 2 puff INHALATION DAILY Qty: 0 RF: 0 albuterol sulfate 2.5 MG/3 ML solution for nebulization 3 ml INH Q6HP PRN (Reason: COPD, shortness of breath) RF: 0 loratadine 10 mg Capsule 10 mg PO DAILY RF: 0 hydrocodone-acetaminophen [[place]] 5-325 mg tablet 1 tab PO Q4H PRN (Reason: painful procedure) Qty: 10 RF: 0 aspirin 81 mg Tablet,Delayed Release (Dr/Ec) 81 mg PO DAILY RF: 0 hydrochlorothiazide 25 mg Tablet 25 mg PO DAILY RF: 0 Flovent HFA 220 mcg/actuation HFA aerosol inhaler 1 puff INHALATION BID RF: 0 metoprolol succinate 25 mg tablet extended release 24 hr 25 mg PO BID Qty: 60 RF: 0 Referrals: Joy Ferrera MD [Primary Care Provider] -
[2019-08-30 07:52] LABS: Alanine Aminotransferase 87 IU/L (<35); Albumin 4.4 g/dL (3.5-5.0); Albumin Globulin Ratio 1.4 (1.0-2.8); Alkaline Phosphatase 66 U/L (38-126); Aspartate Aminotransferase 50 IU/L (14-36); BUN Creatinine Ratio 28.6 (6-22); Bilirubin Total 0.4 mg/dL (0.2-1.3); Blood Urea Nitrogen 20 mg/dL (7-17); Calcium 10.3 mg/dL (8.4-10.2); Carbon Dioxide 28 mmol/L (22-32); Chloride 104 mmol/L (98-107); Estimated Glomerular Filt Rate > 60.0 mL/min (>60); Globulin 3.2 g/dL (1.7-4.1); Glucose 115 mg/dL (80-110); HEMOLYSIS < 15 (0-50); Sodium 139 mmol/L (137-145); Total Protein 7.6 g/dL (6.3-8.2)
[2019-08-30 08:27] LABS: D Dimer 225 ng/mL (<230)
[2019-08-30 08:35] LABS: C-Reactive Protein Quant 3.1 mg/dL (<1.0); Creatine Kinase 51 U/L (30-135)
[2019-08-30 08:39] LABS: Lactate (Lactic Acid) 1.2 mmol/L (0.7-2.1)
[2019-08-30 08:41] LABS: Erythrocyte Sedimentation Rate 38 MM/HR (0-20)
[2019-08-30 08:44] LABS: Troponin I < 0.012 ng/mL (0.01-0.034)
[2019-08-30] MEDS: KETOROLAC 60 MG/2 ML VIAL 30 MG IV (08:55)
== END 2019-08-30 11:08 | disposition home or self-care (01) ==
PROVIDERS: Emergency Provider Emergency Medicine; PCP Family Medicine
DX: R09.1 Pleurisy (principal); R07.81 Pleurodynia; C34.91 Malignant neoplasm of unspecified part of right bronchus or lung; R06.02 Shortness of breath
CPT/HCPCS: 36415; 71046; 80053; 82550; 83605; 84484; 85025; 85379; 85651; 86140; 93005; 96374; 99284; J1885

== ENCOUNTER → 2019-12-04 13:23 | Outpatient (CLI) | payer OTHER, SELFPAY ==
[2019-03-19 16:15] VITALS: BMI 34.3
[2019-12-04 13:40] LABS: Add Manual Diff / Slide Review NO; Basophils Absolute Auto 0 /uL (0-100); Basophils Percent Auto 0.6 % (0-2); Eosinophils Absolute Auto 100 /uL (0-450); Hemoglobin 13.5 g/dL (12.0-16.0); Lymphocytes Absolute Auto 1800 /uL (1100-4500); Lymphocytes Percent Auto 27.3 % (25-40); Mean Corpuscular HGB Conc 34.5 % (30-36); Mean Corpuscular Hemoglobin 33.6 PG (26-34); Mean Corpuscular Volume 97.4 fL (80-100); Monocytes Absolute Auto 500 /uL (0-900); Monocytes Percent Auto 7.3 % (3-14); Neutrophils Absolute Auto 4200 /uL (1500-7000); Neutrophils Percent Auto 63.8 % (50-75); Platelet Count 262 X10^3/uL (150-400); Red Blood Cell Count 4.01 X10^6/uL (4.0-5.2); Red Cell Distribution Width 13.3 % (11.6-14.8); White Blood Cell Count 6.6 X10^3/uL (4.5-11.0)
[2019-12-04 13:51] LABS: Alanine Aminotransferase 75 IU/L (<35); Albumin 4.4 g/dL (3.5-5.0); Albumin Globulin Ratio 1.4 (1.0-2.8); Alkaline Phosphatase 73 U/L (38-126); Aspartate Aminotransferase 51 IU/L (14-36); BUN Creatinine Ratio 34.8 (6-22); Bilirubin Total 0.5 mg/dL (0.2-1.3); Blood Urea Nitrogen 23 mg/dL (7-17); Calcium 9.8 mg/dL (8.4-10.2); Carbon Dioxide 34 mmol/L (22-32); Chloride 99 mmol/L (98-107); Estimated Glomerular Filt Rate > 60.0 mL/min (>60); Globulin 3.1 g/dL (1.7-4.1); Glucose 139 mg/dL (80-110); HEMOLYSIS 20 (0-50); Potassium 3.8 mmol/L (3.4-5.1); Sodium 137 mmol/L (137-145); Total Protein 7.5 g/dL (6.3-8.2)
== END ==
PROVIDERS: Internal Medicine Hematology & Oncology; PCP Family Medicine
DX: C34.90 Malignant neoplasm of unspecified part of unspecified bronchus or lung (principal)
CPT/HCPCS: 36415; 80053; 85025

== ENCOUNTER → 2020-03-01 12:22 | Outpatient (CLI) | payer OTHER, SELFPAY ==
[2019-03-19 16:15] VITALS: BMI 34.3
--- NOTE | 2020-03-01 | DI.CT.S_ITS ---
PROCEDURE: CT CHEST WO CON INDICATIONS: RIGHT LUNG CANCER TECHNIQUE: Noncontrast 5 mm thick sections acquired from the pulmonary apices to the posterior costophrenic angles. 1 mm lung window, 5 mm thick coronal and sagittal and 7 mm axial MIP reformats were then acquired. For radiation dose reduction, the following was used: automated exposure control, adjustment of mA and/or kV according to patient size. COMPARISON: [facility], CT, CT CHEST W CON, 01/27/2019, 14:21. [facility], CT, CT ANGIO CHEST PE PROTOCOL, 01/28/2019, 17:39. [facility], CT, CT CHEST WO CON, 07/21/2019, 13:01. FINDINGS: Image quality: Excellent. Lungs and pleura: There is right upper lobe lobectomy. Postsurgical changes in the right lung are stable with hyperexpansion and severe emphysematous change. In the left lung, previously described airspace opacities in the left upper lobe abutting the major fissure and the left lower lobe are no longer visualized. There are, however, several new lesions. A 2.1 x 3.7 cm masslike lesion is seen in the left upper lobe abutting the anterior pleura (series 3, image 76). Posterior to this lesion, there is a 1.5 cm spiculated density (series 3, image 65). In addition, there is a 1.1 x 1.5 cm lesion in the right lower lobe (series 3 image 213). Bilateral subpleural nodules and bronchiectasis are again seen, most likely sequelae of inflammatory or infectious process. No pleural effusions or pneumothorax. Central and peripheral airways are patent and normal in caliber. Mediastinum: Heart size is normal. No pericardial effusion. No mediastinal adenopathy by size criteria. Thoracic aorta and central pulmonary arteries are normal in size. Esophagus is normal in caliber. There is a small hiatal hernia. Bones and chest wall: No suspicious bony lesions. No vertebral body compression fractures. No axillary or supraclavicular adenopathy by size criteria. Thyroid gland is not well seen. Abdomen: There is hepatic steatosis. Colonic diverticula are seen in transverse colon. Visualized upper abdominal solid organs and bowel loops appear normal in the absence of contrast. IMPRESSION: 1. Interval resolution of previously described airspace nodular densities. 2. There are 3 new masslike opacities, 2 in left upper lobe and 1 in the right lower lobe. Etiologies may be infection, inflammation or neoplasm. Recommend close clinical and imaging follow-up. If clinically indicated, PET-CT may be helpful. 3. Bilateral subpleural nodules and bronchiectasis. 4. Postsurgical changes related to right upper lobectomy. 5. Incidental findings of small hiatal hernia, hepatic steatosis and colonic diverticulosis. Dictated by: Delmi Parmar M.D. on 03/01/2020 at 15:52 Approved by: Delmi Parmar M.D. on 03/01/2020 at 16:10
== END ==
PROVIDERS: PCP Family Medicine; Referring Provider Family Medicine; Visit Provider Internal Medicine Critical Care Medicine
DX: C34.91 Malignant neoplasm of unspecified part of right bronchus or lung (principal); J47.9 Bronchiectasis, uncomplicated; R91.8 Other nonspecific abnormal finding of lung field; K44.9 Diaphragmatic hernia without obstruction or gangrene; K76.0 Fatty (change of) liver, not elsewhere classified; K57.90 Diverticulosis of intestine, part unspecified, without perforation or abscess without bleeding
CPT/HCPCS: 71250

== ENCOUNTER → 2020-04-22 09:47 | Outpatient (CLI) | payer OTHER, SELFPAY ==
[2019-03-19 16:15] VITALS: BMI 34.3
--- NOTE | 2020-04-22 | DI.US.S_ITS ---
PROCEDURE: US PELVIC COMPLETE INDICATIONS: OVARIAN CYST TECHNIQUE: Real-time scanning was performed of the pelvic organs, with image documentation. Additional endovaginal scanning was necessary due to incomplete visualization of the adnexal and endometrial structures by transabdominal scanning. COMPARISON: [facility], MR, MR ABDOMEN PELVIS O CON, 06/25/2018, 8:39. FINDINGS: Transabdominal scanning: Limited scanning through the kidneys shows no hydronephrosis. Echogenic focus involving the left kidney likely a small angiomyolipoma measuring 6 mm. No pathologic free abdominal or pelvic fluid. Endovaginal scanning: Uterus: Prior hysterectomy. Ovaries: Simple left adnexal cystic mass again identified which has increased in size compared to prior MRI now measuring 7.1 x 5.4 x 4.9 cm compared to 4.7 x 6.5 cm on prior MRI. Small amount of ovarian tissue is present and Doppler assessment demonstrates intrinsic arterial blood flow within the ovarian tissue. IMPRESSION: 1. Interval increase in presumed simple left ovarian cyst now measuring up to 7.1 cm. Underlying neoplastic cystic mass cannot be excluded and if indicated gynecologic protocol MRI could be performed for further characterization. Dictated by: Adan Palacios [facility] Interpreted: Maurice Oquendo MD on 04/22/2020 at 12:03 Approved by: Maurice Oquendo M.D. on 04/22/2020 at 14:46
== END ==
PROVIDERS: PCP Family Medicine; Referring Provider Internal Medicine; Visit Provider Internal Medicine
DX: N83.202 Unspecified ovarian cyst, left side (principal)
CPT/HCPCS: 76856

== ENCOUNTER → 2020-05-11 15:58 | Outpatient (CLI) | payer OTHER, SELFPAY ==
[2019-03-19 16:15] VITALS: BMI 34.3
--- NOTE | 2020-05-11 16:01 | DI.MRI.S_ITS ---
PROCEDURE: MR PELVIS WO/W CON INDICATIONS: Noninflammatory disorder of ovary, fallopian tube TECHNIQUE: Coronal HASTE, sagittal breath-hold T2 FSE; axial T1 FSE with and without fat saturation through the pelvis. Optional long- and short-axis uterine nonbreath-hold T2 FSE through the uterus. Sagittal or axial dynamic VIBE during administration of contrast. Post-contrast axial or coronal VIBE/2-D FLASH with fat saturation from the iliac crests to the symphysis. Optional diffusion weighted imaging and ADC may be performed. COMPARISON: Outside Facility, RG, CT PET SKULL BASE TO MID THIGH, 05/28/2018, 8:15. [facility], MR, MR ABDOMEN PELVIS WWO CON, 06/25/2018, 8:39. [facility], US, US PELVIC COMPLETE, 04/22/2020, 10:13. FINDINGS: Image quality: Excellent. Uterus: Surgically absent. Adnexa: There is progressive increase in size of a left adnexal cyst measuring up to 7.6 x 5.2 x 5.9 cm. The cyst wall is thin overall with a few scattered areas of mild focal thickening and enhancement. No discrete nodular mass visualized. There is a small diminutive right ovary which appears within normal size limits in for age. Urinary system: Bladder wall is normal in thickness. Distal ureters are non distended. Urethra appears normal in morphology. Nodes and vessels: No pelvic or inguinal adenopathy by size criteria. Iliac vessels are normal in size. Bowel and peritoneum: No pathologic free pelvic fluid. Visualized bowel loops appear normal in caliber and wall thickness. There is colonic diverticulosis noted. Soft tissues: No inguinal hernias. Bones: Marrow demonstrates normal overall signal. There is a small enhancing lesion within the left iliac wing measuring up to 1.5 x 0.7 cm which appears increased in size in prominence compared to the prior MRI. IMPRESSION: 1. Progressive increase in size of a thin walled left adnexal cystic mass which demonstrates small areas of focal wall thickening. Although no discrete solid nodular enhancement or mass is identified, the findings are suspicious for a cystic neoplasm given increase in size over time. 2. Small enhancing lesion in the left iliac wing appears increased in size compared to the prior studies. The finding is nonspecific but given patient's history of lung cancer metastatic disease cannot be excluded. Consider further evaluation with bone scan. Dictated by: Ravi Haskins M.D. on 05/12/2020 at 11:23 Approved by: Ravi Haskins M.D. on 05/12/2020 at 11:40
== END ==
PROVIDERS: PCP Family Medicine; Referring Provider Nurse Practitioner Family; Visit Provider Nurse Practitioner Family
DX: N83.9 Noninflammatory disorder of ovary, fallopian tube and broad ligament, unspecified (principal); R19.09 Other intra-abdominal and pelvic swelling, mass and lump; Z85.118 Personal history of other malignant neoplasm of bronchus and lung
CPT/HCPCS: 72197; A9579

== ENCOUNTER → 2020-05-18 12:23 | Outpatient (CLI) | payer OTHER, SELFPAY ==
[2019-03-19 16:15] VITALS: BMI 34.3
[2020-05-18 12:49] LABS: Alanine Aminotransferase 77 IU/L (<35); Albumin 4.7 g/dL (3.5-5.0); Albumin Globulin Ratio 1.4 (1.0-2.8); Alkaline Phosphatase 63 U/L (38-126); Aspartate Aminotransferase 50 IU/L (14-36); BUN Creatinine Ratio 25.4 (6-22); Bilirubin Total 0.5 mg/dL (0.2-1.3); Blood Urea Nitrogen 17 mg/dL (7-17); Calcium 10.1 mg/dL (8.4-10.2); Carbon Dioxide 38 mmol/L (22-32); Chloride 98 mmol/L (98-107); Estimated Glomerular Filt Rate > 60.0 mL/min (>60); Globulin 3.4 g/dL (1.7-4.1); Glucose 120 mg/dL (80-110); HEMOLYSIS < 15 (0-50); Potassium 4.3 mmol/L (3.4-5.1); Sodium 138 mmol/L (137-145); Total Protein 8.1 g/dL (6.3-8.2)
[2020-05-18 13:11] LABS: Add Manual Diff / Slide Review NO; Basophils Absolute Auto 0 /uL (0-100); Basophils Percent Auto 0.5 % (0-2); Eosinophils Absolute Auto 100 /uL (0-450); Eosinophils Percent Auto 1.1 % (2-4); Hematocrit 42.6 % (36-46); Hemoglobin 14.1 g/dL (12.0-16.0); Lymphocytes Absolute Auto 2000 /uL (1100-4500); Lymphocytes Percent Auto 30.2 % (25-40); Mean Corpuscular HGB Conc 33.1 % (30-36); Mean Corpuscular Hemoglobin 31.9 PG (26-34); Mean Corpuscular Volume 96.4 fL (80-100); Monocytes Absolute Auto 700 /uL (0-900); Monocytes Percent Auto 10.7 % (3-14); Neutrophils Absolute Auto 3700 /uL (1500-7000); Neutrophils Percent Auto 57.5 % (50-75); Platelet Count 247 X10^3/uL (150-400); Red Blood Cell Count 4.42 X10^6/uL (4.0-5.2); Red Cell Distribution Width 13.2 % (11.6-14.8); White Blood Cell Count 6.5 X10^3/uL (4.5-11.0)
== END ==
PROVIDERS: PCP Family Medicine; Referring Provider Internal Medicine Hematology & Oncology; Visit Provider Internal Medicine Hematology & Oncology
DX: C34.90 Malignant neoplasm of unspecified part of unspecified bronchus or lung (principal)
CPT/HCPCS: 36415; 80053; 85025

== ENCOUNTER → 2020-05-26 10:40 | Outpatient (CLI) | payer OTHER, SELFPAY ==
[2019-03-19 16:15] VITALS: BMI 34.3
--- NOTE | 2020-05-26 | DI.CT.S_ITS ---
PROCEDURE: CT CHEST WO CON INDICATIONS: Other nonspecific abnormal finding of lung field TECHNIQUE: Noncontrast 2.0-2.5 mm thick sections acquired from the pulmonary apices to the posterior costophrenic angles. 7 mm thick axial MIP and 5 mm coronal and sagittal reformats were then acquired. A low radiation dose technique was utilized. COMPARISON: [facility], CT, CT CHEST WO CON, 03/01/2020, 12:25. FINDINGS: Image quality: Diagnostic, given the low radiation dose technique. Lungs and pleura: The previously described poorly defined opacities within the left upper lobe and the right lower lobe have resolved. Right upper lobectomy change can be seen. Prominent underlying emphysematous changes are seen. Bronchiectasis can be seen, particularly involving the lower lobes. No pneumothorax or pleural effusions are seen. The central airways are patent. Mediastinum: Heart size is normal. No pericardial effusion. No mediastinal adenopathy by size criteria. Thoracic aorta and central pulmonary arteries are normal in size. Esophagus is normal in caliber. There is a small hiatal hernia. Bones and chest wall: No suspicious bony lesions. No vertebral body compression fractures. Age-appropriate bony degenerative changes are seen. Accentuated thoracic kyphosis is seen. No axillary or supraclavicular adenopathy by size criteria. Thyroid gland is small in size. Abdomen: Diffuse fatty liver infiltration is noted. Visualized upper abdomen solid organs and bowel loops appear normal in the absence of contrast. IMPRESSION: Resolution of the previously seen poorly defined opacities within the left upper lobe and the right lower lobe. Emphysematous changes with bronchiectasis. Right upper lobectomy change. Incidental note is made of: Small hiatal hernia Fatty liver infiltration Dictated by: Gregor Theodore M.D. on 05/26/2020 at 11:09 Approved by: Gregor Theodore M.D. on 05/26/2020 at 11:12
--- NOTE | 2020-05-26 10:42 | DI.NM.S_ITS ---
PROCEDURE: NM BONE SCAN WHOLE BODY RADIOPHARMACEUTICAL: 20.10 mCi Tc-99m MDP IV. INDICATIONS: lung cancer, land left iliac wing bone lesion TECHNIQUE: Delayed whole-body scintigrams were obtained approximately 3-4 hours after intravenous injection of radiotracer. Anterior and posterior views were acquired from vertex to feet. Additional left and right oblique views of the pelvis were obtained. COMPARISON: [facility], MR, MR PELVIS WO/W CON, 05/11/2020, 16:27. FINDINGS: No abnormal radiotracer uptake identified in the osseous skeleton that would be suspicious for skeletal metastatic disease. In particular no abnormal radiotracer uptake identified in the left iliac wing region of small enhancing lesion identified by prior MRI obtained May 11, 2020. Relatively subtle radiotracer uptake noted in the shoulders bilaterally and the right midfoot compatible with osteoarthritis. No areas of photopenia identified in the osseous skeleton. No abnormal soft tissue uptake. Activity in the kidneys is normal and symmetric. IMPRESSION: No scintigraphic evidence of osseous metastatic disease. No abnormal radiotracer uptake identified in the left iliac bone. Dictated by: Marley Ellis MD, PhD on 05/26/2020 at 14:17 Approved by: Marley Ellis MD, PhD on 05/26/2020 at 14:20
== END ==
PROVIDERS: PCP Family Medicine; Referring Provider Internal Medicine Hematology & Oncology; Visit Provider Internal Medicine Hematology & Oncology
DX: C34.90 Malignant neoplasm of unspecified part of unspecified bronchus or lung (principal); R91.8 Other nonspecific abnormal finding of lung field; K44.9 Diaphragmatic hernia without obstruction or gangrene; K76.0 Fatty (change of) liver, not elsewhere classified; M89.9 Disorder of bone, unspecified
CPT/HCPCS: 71250; 78306; A9503

== ENCOUNTER → 2020-06-27 06:57 | Outpatient (CLI) | payer OTHER, SELFPAY ==
[2019-03-19 16:15] VITALS: BMI 34.3
--- NOTE | 2020-06-27 06:59 | DI.US.S_ITS ---
PROCEDURE: US ABDOMEN LIMITED INDICATIONS: ELEVATED LFTS TECHNIQUE: Real-time focused scanning was performed of the abdomen, with image documentation. COMPARISON: [facility], , US ABDOMEN, 02/12/2019, 7:47. FINDINGS: The liver demonstrates prominent size. The liver demonstrates generalized severely increased echogenicity. This decreases ultrasound sensitivity for detection of hepatic masses. The main portal vein is prominent and demonstrates normal size. No findings of gallstones or sludge are seen. The gallbladder wall is not thickened, measuring 3 mm or less. No specific pericholecystic fluid is seen. The sonographic Barnes sign is negative. There is no biliary dilatation, the common bile duct measures 5 mm. No significant pancreatic abnormality is seen on these images. The visualized right kidney is unremarkable, without hydronephrosis. IMPRESSION: Severe fatty liver infiltration. The gallbladder demonstrates a normal sonographic appearance. No biliary dilatation is seen. Dictated by: Gregor Theodore M.D. on 06/27/2020 at 9:16 Approved by: Gregor Theodore M.D. on 06/27/2020 at 9:17
[2020-06-27 08:39] LABS: Add Manual Diff / Slide Review NO; Basophils Absolute Auto 0 /uL (0-100); Basophils Percent Auto 0.6 % (0-2); Eosinophils Absolute Auto 100 /uL (0-450); Eosinophils Percent Auto 1.5 % (2-4); Hematocrit 42.6 % (36-46); Hemoglobin 13.9 g/dL (12.0-16.0); Lymphocytes Absolute Auto 2000 /uL (1100-4500); Lymphocytes Percent Auto 39.1 % (25-40); Mean Corpuscular HGB Conc 32.6 % (30-36); Mean Corpuscular Hemoglobin 31.6 PG (26-34); Monocytes Absolute Auto 600 /uL (0-900); Monocytes Percent Auto 12.5 % (3-14); Neutrophils Absolute Auto 2400 /uL (1500-7000); Neutrophils Percent Auto 46.3 % (50-75); Platelet Count 259 X10^3/uL (150-400); Red Blood Cell Count 4.39 X10^6/uL (4.0-5.2); Red Cell Distribution Width 13.4 % (11.6-14.8); White Blood Cell Count 5.2 X10^3/uL (4.5-11.0)
[2020-06-27 08:59] LABS: Hemoglobin A1C% w Est Avg Glu 6.3 % (4.0-6.0)
[2020-06-27 09:00] LABS: Alanine Aminotransferase 95 IU/L (<35); Albumin 4.5 g/dL (3.5-5.0); Albumin Globulin Ratio 1.4 (1.0-2.8); Alkaline Phosphatase 65 U/L (38-126); Aspartate Aminotransferase 56 IU/L (14-36); Bilirubin Total 0.3 mg/dL (0.2-1.3); Blood Urea Nitrogen 17 mg/dL (7-17); Calcium 9.8 mg/dL (8.4-10.2); Carbon Dioxide 36 mmol/L (22-32); Chloride 101 mmol/L (98-107); Cholesterol 295 mg/dL (140-199); Estimated Glomerular Filt Rate > 60.0 mL/min (>60); Globulin 3.2 g/dL (1.7-4.1); Glucose 112 mg/dL (80-110); HDL Cholesterol 65 mg/dL (40-60); HEMOLYSIS < 15 (0-50); LDL Cholesterol Calculated 198 mg/dL (<100); Potassium 4.1 mmol/L (3.4-5.1); Sodium 140 mmol/L (137-145); Total Protein 7.7 g/dL (6.3-8.2); Triglycerides 160 mg/dL (35-150)
[2020-06-27 09:11] LABS: HEMOLYSIS < 15 (0-50); Iron 80 ug/dL (37-170)
[2020-06-27 09:24] LABS: Percent Iron Saturation 27 % (15-50); Total Iron Binding Capacity 299 ug/dL (265-497); Transferrin 237 mg/dL (206-381)
[2020-06-27 09:33] LABS: Ferritin 73 ng/mL (11-264)
[2020-06-27 09:42] LABS: TSH w/ Reflex to FT4 3.01 uIU/mL (0.47-4.68)
[2020-06-27 17:01] LABS: Hepatitis B Surface Antigen NEGATIVE s/c (NEGATIVE)
[2020-06-27 17:17] LABS: Hep C Virus Ab w/Reflex Quant NEGATIVE s/c (NEGATIVE)
== END ==
PROVIDERS: PCP Registered Nurse Diabetes Educator; Referring Provider Registered Nurse Diabetes Educator; Visit Provider Registered Nurse Diabetes Educator
DX: K76.0 Fatty (change of) liver, not elsewhere classified (principal); R74.8 Abnormal levels of other serum enzymes; R73.9 Hyperglycemia, unspecified; Z00.00 Encounter for general adult medical examination without abnormal findings
CPT/HCPCS: 36415; 76705; 80053; 80061; 82728; 83036; 83540; 83550; 84443; 85025; 86803; 87340

== ENCOUNTER → 2020-07-04 12:16 | Outpatient (CLI) | payer OTHER, SELFPAY ==
[2019-03-19 16:15] VITALS: BMI 34.3
--- NOTE | 2020-07-04 12:18 | DI.MG.S_ITS ---
BILATERAL DIGITAL SCREENING MAMMOGRAM 3D/2D WITH CAD: 07/04/2020 CLINICAL: Routine screening. Comparison is made to exams dated: 06/30/2019 mammogram - [facility], 04/28/2018 mammogram, and 12/27/2016 mammogram - [facility]. There are scattered fibroglandular elements in both breasts. Current study was also evaluated with a Computer Aided Detection (CAD) system. No significant masses, calcifications, or other findings are seen in either breast. There has been no significant interval change. IMPRESSION: NEGATIVE There is no mammographic evidence of malignancy. A 1 year screening mammogram is recommended. This exam was interpreted at Station ID: [id number]. NOTE: For mammograms, a report in lay terms will be sent to the patient. Approximately 15% of breast malignancies will not be visualized mammographically. In the management of a palpable breast mass, a negative mammogram must not discourage biopsy of a clinically suspicious lesion. Electronically Signed By: Kiko spicer/connie:07/04/2020 14:41:31 letter sent: Normal Exam ACR BI-RADS Category 1: Negative [id number]
== END ==
PROVIDERS: PCP Registered Nurse Diabetes Educator; Referring Provider Family Medicine; Visit Provider Family Medicine
DX: Z12.31 Encounter for screening mammogram for malignant neoplasm of breast (principal)
CPT/HCPCS: 77063; 77067

== ENCOUNTER → 2020-07-21 09:20 | Oncology outpatient (ONC) | payer OTHER, SELFPAY ==
[2018-09-22 11:14] VITALS: BMI 34.4
[2018-10-21 13:25] VITALS: BP 169/70; PULSE 97; RESP 16; TEMP 36.7; O2SAT 98
--- NOTE | 2018-10-21 13:51 | ONC.CONS ---
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 Surgical resection August 2018 History of present illness: Maricarmen Scales is a 58 year old female who is referred for further evaluation of a newly diagnosed lung cancer. The patient reports that she has a history of a familial COPD. She has been followed by a pulmonology for a number of years. She has had a nodule in her right lower lobe that has been followed for several years. She has previously had PET scans that have not shown any activity. This year, on a routine follow-up CT there was evidence of progression and a biopsy was performed. Pathology showed an adenocarcinoma. PET-CT showed no evidence of distant metastasis. There was a large cystic lesion in the area of the ovary that was felt to be benign by Gynecology. Follow-up was recommended. She underwent thoracoscopic lobectomy in August. She tolerated the procedure well. She has been working with pulmonary rehab in feels like her breathing has improved. She is still having a little bit of pain on the lateral ribs but it seems to be slowly getting better. She has occasional cough. No fevers or chills. Strength and energy level have been good. Her appetite is normal. No nausea or vomiting. No GI complaints. She otherwise feels quite well. Her past medical history is notable for COPD with frequent pneumonias. She has had a prior hysterectomy appendectomy and tonsillectomy. Her medications include azithromycin, albuterol and Flovent. She reports an allergy to sulfa. Her family history is notable for father had lung cancer. Several of her siblings have familial COPD as well. Social history: She is . 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 She has never smoked. CC: Naun Gibson MD Home Medications and Allergies Home Medications Medication Instructions Recorded Confirmed Type Acyclovir (Zovirax) 400 mg PO Q DAY #0 08/15/09 History ibuprofen 800 mg PO PRN #0 09/24/10 History [CALCIUM WITH MAG] QDAY #0 05/24/11 History CA PANTOTHENATE/FOLIC ACID/VIT #0 07/31/12 History (MULTIVITAMIN) CHOLECALCIFEROL (VITAMIN D) 2,000 units PO QDAY #0 07/31/12 History [STIOLOTO] 2 puff INH Q DAY #0 06/23/17 History albuterol sulfate 3 ml INH Q6HP PRN #25 ea 06/23/17 Rx fluticasone propionate [Flovent #0 06/23/17 History HFA] azithromycin [Zithromax] 250 mg PO 3XW 10/21/18 History dexamethasone 4 mg PO Q12H 90 Days #24 tab 10/21/18 Rx folic acid 1 mg PO QDAY #30 tab 10/21/18 Rx ondansetron HCl 8 mg PO Q8H PRN #30 tab 10/21/18 Rx prednisone 10 mg PO PRN PRN 10/21/18 History Allergies Allergy/AdvReac Type Severity Reaction Status Date / Time Sulfa (Sulfonamide Allergy Severe RESP Unverified 09/11/17 12:15 Antibiotics) DISTRESS bee pollen [BEE POLLEN] Allergy Unknown Unverified 09/11/17 12:15 Medical History - Medical, Surgical, Family History Surgical History: Surgical History (Updated 10/21/18 @ 13:51 by Naun Gibson MD) S/P lobectomy of lung - Social History Smoking Status: Never smoker Review of Systems - Patient Self-Reported Symptoms SR ears, nose, mouth, throat issues: Cough SR respiratory issues: Cough, Shortness of breath Constitutional: normal activity level, no weight loss Cardiovascular: no chest pain, no palpitations Respiratory: cough Gastrointestinal: no change in appetite, no abdominal pain Exam Vital signs: Vital Signs Temp Pulse Resp BP Pulse Ox 10/21/18 13:25 98.0 F 97 H 16 169/70 H 98 Intake and Output 10/20/18 10/21/18 10/21/18 23:59 07:59 15:59 Other: Weight 92 kg Patient Weight 10/21/18 23:59 Weight 92 kg - Constitutional positive no acute distress, positive average body habitus - Routine HEENT Exam Head: Present: normocephalic, atraumatic Eye: Present: EOMI, PERRL. Absent: conjunctival icterus, scleral injection ENT: Present: mucous membranes moist, oropharynx clear, dentition normal - Routine Neck Exam Present: supple. Absent: lymphadenopathy, thyromegaly - Routine Chest/Breast/Axilla Exam Axillae: Absent: lymphadenopathy - Routine Respiratory Exam Present: Clear to auscultation bilaterally. Absent: rales, wheezes - Routine Cardiovascular Exam Present: RRR, S1, S2. Absent: murmur - Routine Abdominal Exam Present: soft, normoactive bowel sounds. Absent: tenderness, organomegaly, mass - Routine Extremities Exam Absent: cyanosis, clubbing, edema - Routine Back/Spine Exam Back/Spine: Absent: paraspinal tenderness, vertebral tenderness - Routine Skin Exam Present: intact. Absent: petechiae, rash - Routine Neurological Exam Present: alert, oriented X3 - Routine Psychiatric Exam Present: normal affect, normal thought process Results - Imaging Additional studies: Procedures Injection of antibiotic (07/31/12) Injection of steroid (07/31/12) Injection or infusion of other therapeutic or prophylactic substance (12/02/13) Other nonoperative respiratory measurements (07/31/12) Assessment and Plan (1) Lung cancer Current visit: No Status: Acute 58-year-old female never smoker with a new diagnosis stage II adenocarcinoma of the right lung. She is recovering well from her surgery. She did have lymph node involvement and I think would be a candidate for adjuvant chemotherapy. I explained that cisplatin based chemotherapy has been shown to reduce the risk of recurrence and improve survival for non-small cell lung cancer. The magnitude of that benefit is on the order of about 5-10%. Side effects of chemotherapy including alopecia, nausea and vomiting, changes in taste and appetite, risk for cytopenias and infections, risk for mouth sores skin rash and diarrhea, risk for ototoxicity and nephrotoxicity were reviewed with the patient and she is willing to proceed. We will plan on having a Port-A-Cath placed and beginning as soon as can be practically arranged.
--- NOTE | 2018-10-21 15:57 | PC.NURSE ---
Triage note: called pt to let her know Dr Gibson prescribed dexamethasone to be started one day prior to treatment, also ondansetron for nausea and folic acid as well. She uses the [facility] pharmacy. Those prescriptions were faxed to them per her request.
[2018-11-11 09:23] LABS: Add Manual Diff / Slide Review NO; Basophils Absolute Auto 0 /uL (0-100); Basophils Percent Auto 0.4 % (0-2); Eosinophils Absolute Auto 0 /uL (0-450); Hematocrit 39.5 % (36-46); Hemoglobin 13.4 g/dL (12.0-16.0); Lymphocytes Absolute Auto 1000 /uL (1100-4500); Lymphocytes Percent Auto 9.6 % (25-40); Mean Corpuscular HGB Conc 33.9 % (30-36); Mean Corpuscular Hemoglobin 31.9 PG (26-34); Monocytes Absolute Auto 400 /uL (0-900); Monocytes Percent Auto 4.1 % (3-14); Neutrophils Absolute Auto 8700 /uL (1500-7000); Neutrophils Percent Auto 85.9 % (50-75); Platelet Count 245 X10^3/uL (150-400); Red Blood Cell Count 4.21 X10^6/uL (4.0-5.2); Red Cell Distribution Width 13.4 % (11.6-14.8); White Blood Cell Count 10.1 X10^3/uL (4.5-11.0)
[2018-11-11 09:36] LABS: Alanine Aminotransferase 65 IU/L (9-52); Albumin 4.5 g/dL (3.5-5.0); Albumin Globulin Ratio 1.6 (1.0-2.8); Alkaline Phosphatase 65 U/L (38-126); Aspartate Aminotransferase 40 IU/L (14-36); BUN Creatinine Ratio 42.5 (6-22); Bilirubin Total 0.3 mg/dL (0.2-1.3); Blood Urea Nitrogen 17 mg/dL (7-17); Calcium 9.6 mg/dL (8.4-10.2); Carbon Dioxide 27 mmol/L (22-32); Chloride 102 mmol/L (98-107); Estimated Glomerular Filt Rate > 60.0 mL/min (>60); Globulin 2.9 g/dL (1.7-4.1); Glucose 143 mg/dL (70-100); HEMOLYSIS 17 (0-50); Magnesium 2.2 mg/dL (1.6-2.3); Potassium 4.6 mmol/L (3.4-5.1); Sodium 138 mmol/L (137-145); Total Protein 7.4 g/dL (6.3-8.2)
[2018-11-11 09:41] VITALS: BP 151/87; PULSE 92; RESP 18; TEMP 36.7; O2SAT 95
[2018-11-11] MEDS: SODIUM CHLORIDE 0.9% 1,000 ML 500 ML IV (09:53)
[2018-11-11 09:58] VITALS: PULSE 215; O2SAT 98
[2018-11-11] MEDS: DEXAMETHASONE 12 MG in SODIUM CHLORIDE 0.9% 50 ML 212 ML IV (10:05)
[2018-11-11] MEDS: ONDANSETRON 16 MG in SODIUM CHLORIDE 0.9% 50 ML 232 ML IV (10:29)
--- NOTE | 2018-11-11 10:51 | ONC.MSW ---
*Pt received a Chemo Quilt today.
[2018-11-11] MEDS: FOSAPREPITANT 150 MG in SODIUM CHLORIDE 0.9% 150 ML 300 ML IV (11:11)
[2018-11-11] MEDS: LORazepam 0.5 MG TABLET PO (11:52)
[2018-11-11] MEDS: CYANOCOBALAMIN 1,000 MCG/ML VIAL 1000 MCG SUBCUT (11:53)
[2018-11-11] MEDS: SODIUM CHLORIDE 0.9% IV (12:04)
[2018-11-11] MEDS: PEMETREXED IV (12:04)
[2018-11-11] MEDS: MAGNESIUM SULFATE IV (12:28)
[2018-11-11] MEDS: CISPLATIN IV (12:28)
[2018-11-11] MEDS: [UNRECOGNIZED DRUG - OTHER] IV (12:28)
[2018-11-11] MEDS: MANNITOL IV (12:28)
--- NOTE | 2018-11-11 16:02 | PC.NURSE ---
pt tolerated Chemo infusion. supportive family at side.
[2018-11-18 12:22] LABS: Add Manual Diff / Slide Review NO; Basophils Absolute Auto 0 /uL (0-100); Basophils Percent Auto 0.6 % (0-2); Eosinophils Absolute Auto 100 /uL (0-450); Eosinophils Percent Auto 1.6 % (2-4); Hematocrit 37.6 % (36-46); Hemoglobin 12.6 g/dL (12.0-16.0); Lymphocytes Absolute Auto 1600 /uL (1100-4500); Lymphocytes Percent Auto 24.9 % (25-40); Mean Corpuscular HGB Conc 33.6 % (30-36); Mean Corpuscular Hemoglobin 31.9 PG (26-34); Mean Corpuscular Volume 95.1 fL (80-100); Monocytes Absolute Auto 600 /uL (0-900); Monocytes Percent Auto 8.5 % (3-14); Neutrophils Absolute Auto 4300 /uL (1500-7000); Neutrophils Percent Auto 64.4 % (50-75); Platelet Count 187 X10^3/uL (150-400); Red Blood Cell Count 3.96 X10^6/uL (4.0-5.2); White Blood Cell Count 6.6 X10^3/uL (4.5-11.0)
[2018-11-18 12:34] LABS: Alanine Aminotransferase 51 IU/L (9-52); Albumin Globulin Ratio 1.4 (1.0-2.8); Alkaline Phosphatase 76 U/L (38-126); Aspartate Aminotransferase 35 IU/L (14-36); Bilirubin Total 0.4 mg/dL (0.2-1.3); Blood Urea Nitrogen 18 mg/dL (7-17); Calcium 9.3 mg/dL (8.4-10.2); Carbon Dioxide 29 mmol/L (22-32); Chloride 102 mmol/L (98-107); Estimated Glomerular Filt Rate > 60.0 mL/min (>60); Globulin 2.9 g/dL (1.7-4.1); Glucose 89 mg/dL (70-100); HEMOLYSIS < 15 (0-50); Potassium 4.4 mmol/L (3.4-5.1); Sodium 137 mmol/L (137-145); Total Protein 6.9 g/dL (6.3-8.2)
--- NOTE | 2018-11-25 13:19 | ONC.MSW ---
Description: T/C re: ONC Medical Relief Fund Activity: Returned pt's call re: if she can utilize the Medical Relief [facility] for reimbursement for accupuncture. PRECISION LATHE OPERATOR left message that she can absolutely utilize the [facility] for up to $600 reimbursement for accupuncture. Encouraged her to call back should she have additional questions.
[2018-12-02 08:42] VITALS: BP 149/76; PULSE 104; RESP 16; TEMP 36.6; O2SAT 96
--- NOTE | 2018-12-02 08:57 | P.PNONC_ITS ---
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 Surgical resection August 2018 2. One cycle of cisplatin and Alimta Interval history: The patient is a 58-year-old woman who returns today for follow-up. She has a history of adenocarcinoma of the right lower lobe. She has completed her 1st cycle of adjuvant chemotherapy. She is due for her 2nd cycle today. She notes that she did have trouble with constipation following her 1st cycle. It started when she took some pain medication following her port placement. She eventually used a Fleet's enema and has been using fiber supplement and is doing well now. She did have some thrush. She had some clotrimazole which she took and it cleared up. She had some nausea but no vomiting. No fevers or chills. No shortness of breath or cough. She has had some ongoing pain in the ribs since her surgery that has been stable. She notes that she has had some fatigue. She had some intermittent tingling in her toes and some heat sensitivity in her fingers but no blistering or peeling. She denies any other changes in her health. - Patient Self-Reported Symptoms SR ears, nose, mouth, throat issues: Cough SR respiratory issues: Shortness of breath SR Skin issues: Dry skin, Hair loss or scalp prob SR Gastrointestinal issues: Constipation SR Musculoskeletal issues: Muscle weakness Home Medications and Allergies Home Medications Medication Instructions Recorded Confirmed Type Acyclovir (Zovirax) 400 mg PO Q DAY #0 08/15/09 12/02/18 History ibuprofen 800 mg PO PRN PRN #0 09/24/10 12/02/18 History calcium carbonate [Calcium 500] 500 mg PO DAILY #0 05/24/11 12/02/18 History CA PANTOTHENATE/FOLIC ACID/VIT See Rx Instructions .ROUTE 07/31/12 12/02/18 History (MULTIVITAMIN) .COMPLEX #0 cholecalciferol (vitamin D3) 5,000 unit PO DAILY #0 07/31/12 12/02/18 History [Vitamin D3] Flovent HFA 1 puff INHALATION BID #0 06/23/17 12/02/18 History Stiolto Respimat 2 puff INHALATION DAILY #0 06/23/17 12/02/18 History azithromycin [Zithromax] 250 mg PO QMWF 10/21/18 12/02/18 History dexamethasone 4 mg PO Q12H 90 Days #24 tab 10/21/18 12/02/18 Rx ondansetron HCl 8 mg PO Q8H PRN #30 tab 10/21/18 12/02/18 Rx albuterol sulfate 3 ml INH Q6HP PRN 10/23/18 12/02/18 History loratadine 10 mg PO DAILY 11/03/18 12/02/18 History hydrocodone-acetaminophen [[place]] 1 tab PO Q4-6H PRN #10 tab 11/06/18 12/02/18 Rx folic acid 1 mg PO DAILY 90 Days #90 tab 12/02/18 Rx folic acid 1 mg PO QDAY #30 tab 12/02/18 12/02/18 Rx Allergies Allergy/AdvReac Type Severity Reaction Status Date / Time bee pollen [BEE POLLEN] Allergy Severe Anaphylaxis Verified 11/06/18 13:47 Sulfa (Sulfonamide Allergy Severe Anaphylaxis Verified 11/06/18 13:47 Antibiotics) Exam Vital signs: Vital Signs Temp Pulse Resp BP Pulse Ox 12/02/18 08:42 97.8 F 104 H 16 149/76 H 96 Intake and Output 12/01/18 12/02/18 12/02/18 23:59 07:59 15:59 Other: Weight 91.5 kg Patient Weight 12/02/18 23:59 Weight 91.5 kg - Constitutional positive no acute distress, positive average body habitus - Routine HEENT Exam Head: Present: normocephalic, atraumatic Eye: Present: EOMI, PERRL. Absent: conjunctival icterus, scleral injection ENT: Present: mucous membranes moist, oropharynx clear - Routine Neck Exam Present: supple. Absent: lymphadenopathy, thyromegaly - Routine Respiratory Exam Present: Clear to auscultation bilaterally. Absent: rales, wheezes - Routine Cardiovascular Exam Present: RRR, S1, S2. Absent: murmur - Routine Abdominal Exam Present: soft, normoactive bowel sounds, tenderness. Absent: organomegaly Comments: She did have some mild tenderness in the right upper quadrant. There is no rebound or guarding. I do not feel any hepatosplenomegaly or masses. - Routine Extremities Exam Absent: cyanosis, clubbing, edema - Routine Skin Exam Present: intact. Absent: petechiae, rash - Routine Neurological Exam Present: alert, oriented X3 - Routine Psychiatric Exam Present: normal affect, normal thought process Results - Labs Laboratory Last Values WBC 6.6 X10^3/uL (4.5-11.0) 11/18/18 12:15 RBC 3.96 X10^6/uL (4.0-5.2) L 11/18/18 12:15 Hgb 12.6 g/dL (12.0-16.0) 11/18/18 12:15 Hct 37.6 % (36-46) 11/18/18 12:15 MCV 95.1 fL (80-100) 11/18/18 12:15 MCH 31.9 PG (26-34) 11/18/18 12:15 MCHC 33.6 % (30-36) 11/18/18 12:15 RDW 13.0 % (11.6-14.8) 11/18/18 12:15 Plt Count 187 X10^3/uL (150-400) 11/18/18 12:15 Neut % (Auto) 64.4 % (50-75) 11/18/18 12:15 Lymph % (Auto) 24.9 % (25-40) L 11/18/18 12:15 [place] % (Auto) 8.5 % (3-14) 11/18/18 12:15 Eos % (Auto) 1.6 % (2-4) L 11/18/18 12:15 Baso % (Auto) 0.6 % (0-2) 11/18/18 12:15 Neut # (Auto) 4300 /uL (4007-0962) 11/18/18 12:15 Lymph # (Auto) 1600 /uL (7681-4362) 11/18/18 12:15 [place] # (Auto) 600 /uL (0-900) 11/18/18 12:15 Eos # (Auto) 100 /uL (0-450) 11/18/18 12:15 Baso # (Auto) 0 /uL (0-100) 11/18/18 12:15 Sodium 137 mmol/L (137-145) 11/18/18 12:15 Potassium 4.4 mmol/L (3.4-5.1) 11/18/18 12:15 Chloride 102 mmol/L (98-107) 11/18/18 12:15 Carbon Dioxide 29 mmol/L (22-32) 11/18/18 12:15 BUN 18 mg/dL (7-17) H 11/18/18 12:15 Creatinine 0.50 mg/dL (0.52-1.04) L 11/18/18 12:15 Estimated GFR > 60.0 mL/min (>60) 11/18/18 12:15 BUN/Creatinine Ratio 36.0 (6-22) H 11/18/18 12:15 Glucose 89 mg/dL (70-100) 11/18/18 12:15 Calcium 9.3 mg/dL (8.4-10.2) 11/18/18 12:15 Magnesium 2.0 mg/dL (1.6-2.3) 11/18/18 12:15 Total Bilirubin 0.4 mg/dL (0.2-1.3) 11/18/18 12:15 AST 35 IU/L (14-36) 11/18/18 12:15 ALT 51 IU/L (9-52) 11/18/18 12:15 Alkaline Phosphatase 76 U/L (38-126) 11/18/18 12:15 Total Protein 6.9 g/dL (6.3-8.2) 11/18/18 12:15 Albumin 4.0 g/dL (3.5-5.0) 11/18/18 12:15 Globulin 2.9 g/dL (1.7-4.1) 11/18/18 12:15 Albumin/Globulin Ratio 1.4 (1.0-2.8) 11/18/18 12:15 - Imaging Additional studies: Procedures Injection of antibiotic (07/31/12) Injection of steroid (07/31/12) Injection or infusion of other therapeutic or prophylactic substance (12/02/13) Other nonoperative respiratory measurements (07/31/12) Assessment and Plan (1) Lung cancer Current visit: No Status: Acute 58-year-old female never smoker with a new diagnosis stage II adenocarcinoma of the right lung. She has tolerated her 1st cycle of adjuvant chemotherapy with the expected toxicity. Will proceed with her 2nd cycle today. Nausea return to clinic in about 3 weeks for follow-up.
[2018-12-02 09:14] LABS: Add Manual Diff / Slide Review NO; Basophils Absolute Auto 100 /uL (0-100); Basophils Percent Auto 0.7 % (0-2); Eosinophils Absolute Auto 0 /uL (0-450); Eosinophils Percent Auto 0.1 % (2-4); Hematocrit 37.4 % (36-46); Hemoglobin 12.6 g/dL (12.0-16.0); Lymphocytes Absolute Auto 1200 /uL (1100-4500); Lymphocytes Percent Auto 15.5 % (25-40); Mean Corpuscular HGB Conc 33.6 % (30-36); Mean Corpuscular Hemoglobin 31.9 PG (26-34); Mean Corpuscular Volume 94.8 fL (80-100); Monocytes Absolute Auto 600 /uL (0-900); Monocytes Percent Auto 7.6 % (3-14); Neutrophils Absolute Auto 6100 /uL (1500-7000); Neutrophils Percent Auto 76.1 % (50-75); Platelet Count 430 X10^3/uL (150-400); Red Blood Cell Count 3.95 X10^6/uL (4.0-5.2); Red Cell Distribution Width 13.6 % (11.6-14.8); White Blood Cell Count 8.1 X10^3/uL (4.5-11.0)
[2018-12-02 09:24] LABS: Alanine Aminotransferase 31 IU/L (9-52); Albumin 4.4 g/dL (3.5-5.0); Albumin Globulin Ratio 1.4 (1.0-2.8); Alkaline Phosphatase 82 U/L (38-126); Aspartate Aminotransferase 25 IU/L (14-36); Bilirubin Total 0.3 mg/dL (0.2-1.3); Blood Urea Nitrogen 18 mg/dL (7-17); Calcium 9.7 mg/dL (8.4-10.2); Carbon Dioxide 24 mmol/L (22-32); Chloride 103 mmol/L (98-107); Estimated Glomerular Filt Rate > 60.0 mL/min (>60); Globulin 3.1 g/dL (1.7-4.1); Glucose 257 mg/dL (70-100); HEMOLYSIS 19 (0-50); Potassium 4.1 mmol/L (3.4-5.1); Sodium 139 mmol/L (137-145); Total Protein 7.5 g/dL (6.3-8.2)
[2018-12-02] MEDS: SODIUM CHLORIDE 0.9% 1,000 ML 500 ML IV (09:43)
[2018-12-02] MEDS: LORazepam 0.5 MG TABLET PO (09:49)
[2018-12-02] MEDS: ONDANSETRON 16 MG in SODIUM CHLORIDE 0.9% 50 ML 232 ML IV (10:07)
[2018-12-02] MEDS: FOSAPREPITANT 150 MG in SODIUM CHLORIDE 0.9% 150 ML 300 ML IV (10:27)
[2018-12-02] MEDS: PEMETREXED IV (11:15)
[2018-12-02] MEDS: SODIUM CHLORIDE 0.9% IV (11:15)
[2018-12-02] MEDS: [UNRECOGNIZED DRUG - OTHER] IV (11:58)
[2018-12-02] MEDS: CISPLATIN IV (11:58)
[2018-12-02] MEDS: MANNITOL IV (11:58)
[2018-12-02] MEDS: MAGNESIUM SULFATE IV (11:58)
[2018-12-09 12:19] LABS: Add Manual Diff / Slide Review NO; Basophils Absolute Auto 0 /uL (0-100); Basophils Percent Auto 0.6 % (0-2); Eosinophils Absolute Auto 0 /uL (0-450); Eosinophils Percent Auto 0.6 % (2-4); Hematocrit 37.5 % (36-46); Hemoglobin 12.6 g/dL (12.0-16.0); Lymphocytes Absolute Auto 1600 /uL (1100-4500); Lymphocytes Percent Auto 44.5 % (25-40); Mean Corpuscular HGB Conc 33.7 % (30-36); Mean Corpuscular Hemoglobin 31.6 PG (26-34); Mean Corpuscular Volume 93.9 fL (80-100); Monocytes Absolute Auto 500 /uL (0-900); Monocytes Percent Auto 14.3 % (3-14); Neutrophils Absolute Auto 1500 /uL (1500-7000); Platelet Count 183 X10^3/uL (150-400); White Blood Cell Count 3.7 X10^3/uL (4.5-11.0)
[2018-12-09 12:27] LABS: Alanine Aminotransferase 42 IU/L (9-52); Albumin 4.1 g/dL (3.5-5.0); Albumin Globulin Ratio 1.5 (1.0-2.8); Alkaline Phosphatase 66 U/L (38-126); Aspartate Aminotransferase 29 IU/L (14-36); Bilirubin Total 0.4 mg/dL (0.2-1.3); Blood Urea Nitrogen 19 mg/dL (7-17); Calcium 9.1 mg/dL (8.4-10.2); Carbon Dioxide 28 mmol/L (22-32); Chloride 102 mmol/L (98-107); Estimated Glomerular Filt Rate > 60.0 mL/min (>60); Globulin 2.7 g/dL (1.7-4.1); Glucose 104 mg/dL (70-100); HEMOLYSIS 17 (0-50); Magnesium 2.1 mg/dL (1.6-2.3); Potassium 4.5 mmol/L (3.4-5.1); Sodium 139 mmol/L (137-145); Total Protein 6.8 g/dL (6.3-8.2)
[2018-12-23 08:54] LABS: Add Manual Diff / Slide Review NO; Basophils Absolute Auto 100 /uL (0-100); Basophils Percent Auto 0.9 % (0-2); Eosinophils Absolute Auto 0 /uL (0-450); Hemoglobin 12.5 g/dL (12.0-16.0); Lymphocytes Absolute Auto 1100 /uL (1100-4500); Lymphocytes Percent Auto 20.9 % (25-40); Mean Corpuscular HGB Conc 33.8 % (30-36); Mean Corpuscular Hemoglobin 32.1 PG (26-34); Mean Corpuscular Volume 94.8 fL (80-100); Monocytes Absolute Auto 500 /uL (0-900); Monocytes Percent Auto 8.9 % (3-14); Neutrophils Absolute Auto 3700 /uL (1500-7000); Neutrophils Percent Auto 69.3 % (50-75); Platelet Count 355 X10^3/uL (150-400); Red Cell Distribution Width 15.1 % (11.6-14.8); White Blood Cell Count 5.4 X10^3/uL (4.5-11.0)
[2018-12-23 08:56] VITALS: BP 142/88; PULSE 72; RESP 18; TEMP 36.8; O2SAT 96
[2018-12-23 09:00] LABS: Alanine Aminotransferase 43 IU/L (9-52); Albumin 4.5 g/dL (3.5-5.0); Albumin Globulin Ratio 1.6 (1.0-2.8); Alkaline Phosphatase 64 U/L (38-126); Aspartate Aminotransferase 30 IU/L (14-36); Bilirubin Total 0.4 mg/dL (0.2-1.3); Blood Urea Nitrogen 21 mg/dL (7-17); Calcium 9.6 mg/dL (8.4-10.2); Carbon Dioxide 22 mmol/L (22-32); Chloride 103 mmol/L (98-107); Estimated Glomerular Filt Rate > 60.0 mL/min (>60); Globulin 2.8 g/dL (1.7-4.1); Glucose 210 mg/dL (70-100); HEMOLYSIS 22 (0-50); Magnesium 1.8 mg/dL (1.6-2.3); Potassium 4.3 mmol/L (3.4-5.1); Sodium 138 mmol/L (137-145); Total Protein 7.3 g/dL (6.3-8.2)
--- NOTE | 2018-12-23 09:09 | ONC.PN ---
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 Surgical resection August 2018 2. 2 cycles of cisplatin and Alimta Interval history: The patient is a 58-year-old woman who returns today for follow-up. She has a history of adenocarcinoma of the right lower lobe. She has completed her 2nd cycle of adjuvant chemotherapy. She is due for her 3rd cycle today. She tolerated her 2nd cycle reasonably well. She did have some nausea that persisted for about 4 or 5 days after her infusion. She was using Zofran which provided partial relief. Her appetite has been fair. She has not had any diarrhea. No fevers or chills. No shortness of breath or cough. She has noted some increased fatigue but is still able to do all of her normal activities. She has had a little bit of cracking in the skin on her lips specially in the corners and did have some tenderness in the mouth but no open sores. She has not noticed any neuropathy. No fevers chills or sweats. She denies any other changes in her health. - Patient Self-Reported Symptoms SR ears, nose, mouth, throat issues: Cough SR respiratory issues: Shortness of breath SR Skin issues: Dry skin, Hair loss or scalp prob SR Gastrointestinal issues: Constipation SR Musculoskeletal issues: Muscle weakness Home Medications and Allergies Home Medications Medication Instructions Recorded Confirmed Type Acyclovir (Zovirax) 400 mg PO Q DAY #0 08/15/09 12/02/18 History ibuprofen 800 mg PO PRN PRN #0 09/24/10 12/02/18 History calcium carbonate [Calcium 500] 500 mg PO DAILY #0 05/24/11 12/02/18 History CA PANTOTHENATE/FOLIC ACID/VIT See Rx Instructions .ROUTE 07/31/12 12/02/18 History (MULTIVITAMIN) .COMPLEX #0 cholecalciferol (vitamin D3) 5,000 unit PO DAILY #0 07/31/12 12/02/18 History [Vitamin D3] Flovent HFA 1 puff INHALATION BID #0 06/23/17 12/02/18 History Stiolto Respimat 2 puff INHALATION DAILY #0 06/23/17 12/02/18 History azithromycin [Zithromax] 250 mg PO QMWF 10/21/18 12/02/18 History dexamethasone 4 mg PO Q12H 90 Days #24 tab 10/21/18 12/02/18 Rx albuterol sulfate 3 ml INH Q6HP PRN 10/23/18 12/02/18 History loratadine 10 mg PO DAILY 11/03/18 12/02/18 History hydrocodone-acetaminophen [[place]] 1 tab PO Q4-6H PRN #10 tab 11/06/18 12/02/18 Rx folic acid 1 mg PO DAILY 90 Days #90 tab 12/02/18 Rx folic acid 1 mg PO QDAY #30 tab 12/02/18 12/02/18 Rx ondansetron HCl 8 mg PO Q8H PRN #30 tab 12/23/18 Rx prochlorperazine maleate 10 mg PO Q6H PRN 21 Days #30 tab 12/23/18 Rx [Compazine] Allergies Allergy/AdvReac Type Severity Reaction Status Date / Time bee pollen [BEE POLLEN] Allergy Severe Anaphylaxis Verified 11/06/18 13:47 Sulfa (Sulfonamide Allergy Severe Anaphylaxis Verified 11/06/18 13:47 Antibiotics) Exam Vital signs: Vital Signs Temp Pulse Resp BP Pulse Ox 12/23/18 08:56 98.2 F 72 18 142/88 H 96 Intake and Output 12/22/18 12/23/18 12/23/18 23:59 07:59 15:59 Other: Weight 92.4 kg Patient Weight 12/23/18 23:59 Weight 92.4 kg - Constitutional positive no acute distress, positive average body habitus - Routine HEENT Exam Head: Present: normocephalic, atraumatic Eye: Present: EOMI, PERRL. Absent: conjunctival icterus, scleral injection ENT: Present: mucous membranes moist, oropharynx clear - Routine Neck Exam Present: supple. Absent: lymphadenopathy, thyromegaly - Routine Respiratory Exam Present: Clear to auscultation bilaterally. Absent: rales, wheezes - Routine Cardiovascular Exam Present: RRR, S1, S2. Absent: murmur - Routine Abdominal Exam Present: soft, normoactive bowel sounds. Absent: tenderness, organomegaly, mass - Routine Extremities Exam Absent: cyanosis, clubbing, edema - Routine Back/Spine Exam Back/Spine: Absent: paraspinal tenderness, vertebral tenderness - Routine Skin Exam Present: intact. Absent: petechiae, rash - Routine Neurological Exam Present: alert, oriented X3 - Routine Psychiatric Exam Present: normal affect, normal thought process Results - Labs Laboratory Last Values WBC 5.4 X10^3/uL (4.5-11.0) 12/23/18 08:40 RBC 3.90 X10^6/uL (4.0-5.2) L 12/23/18 08:40 Hgb 12.5 g/dL (12.0-16.0) 12/23/18 08:40 Hct 37.0 % (36-46) 12/23/18 08:40 MCV 94.8 fL (80-100) 12/23/18 08:40 MCH 32.1 PG (26-34) 12/23/18 08:40 MCHC 33.8 % (30-36) 12/23/18 08:40 RDW 15.1 % (11.6-14.8) H 12/23/18 08:40 Plt Count 355 X10^3/uL (150-400) 12/23/18 08:40 Neut % (Auto) 69.3 % (50-75) 12/23/18 08:40 Lymph % (Auto) 20.9 % (25-40) L 12/23/18 08:40 [place] % (Auto) 8.9 % (3-14) 12/23/18 08:40 Eos % (Auto) 0.0 % (2-4) L 12/23/18 08:40 Baso % (Auto) 0.9 % (0-2) 12/23/18 08:40 Neut # (Auto) 3700 /uL (5377-7233) 12/23/18 08:40 Lymph # (Auto) 1100 /uL (7256-4746) 12/23/18 08:40 [place] # (Auto) 500 /uL (0-900) 12/23/18 08:40 Eos # (Auto) 0 /uL (0-450) 12/23/18 08:40 Baso # (Auto) 100 /uL (0-100) 12/23/18 08:40 Sodium 138 mmol/L (137-145) 12/23/18 08:40 Potassium 4.3 mmol/L (3.4-5.1) 12/23/18 08:40 Chloride 103 mmol/L (98-107) 12/23/18 08:40 Carbon Dioxide 22 mmol/L (22-32) 12/23/18 08:40 BUN 21 mg/dL (7-17) H 12/23/18 08:40 Creatinine 0.50 mg/dL (0.52-1.04) L 12/23/18 08:40 Estimated GFR > 60.0 mL/min (>60) 12/23/18 08:40 BUN/Creatinine Ratio 42.0 (6-22) H 12/23/18 08:40 Glucose 210 mg/dL (70-100) H 12/23/18 08:40 Calcium 9.6 mg/dL (8.4-10.2) 12/23/18 08:40 Magnesium 1.8 mg/dL (1.6-2.3) 12/23/18 08:40 Total Bilirubin 0.4 mg/dL (0.2-1.3) 12/23/18 08:40 AST 30 IU/L (14-36) 12/23/18 08:40 ALT 43 IU/L (9-52) 12/23/18 08:40 Alkaline Phosphatase 64 U/L (38-126) 12/23/18 08:40 Total Protein 7.3 g/dL (6.3-8.2) 12/23/18 08:40 Albumin 4.5 g/dL (3.5-5.0) 12/23/18 08:40 Globulin 2.8 g/dL (1.7-4.1) 12/23/18 08:40 Albumin/Globulin Ratio 1.6 (1.0-2.8) 12/23/18 08:40 - Imaging Additional studies: Procedures Injection of antibiotic (07/31/12) Injection of steroid (07/31/12) Injection or infusion of other therapeutic or prophylactic substance (12/02/13) Other nonoperative respiratory measurements (07/31/12) Assessment and Plan (1) Lung cancer Current visit: No Status: Acute 58-year-old female never smoker with a new diagnosis stage II adenocarcinoma of the right lung. She has tolerated her 2nd cycle of chemotherapy with the expected toxicities. I did give her refill for Zofran as well as a prescription for Compazine. She will call us if she still is having trouble with nausea. She otherwise will go ahead with her 3rd cycle today. She will return to clinic in about 3 weeks. She will be due for her 4th and final cycle treatment at that time. She had questions regarding follow-up after the completion of treatment. Current NCCN guidelines recommend physical exam and chest CT every 6 months for the 1st 2-3 years and then annual scans.
[2018-12-23] MEDS: SODIUM CHLORIDE 0.9% 1,000 ML 500 ML IV (09:50)
[2018-12-23] MEDS: LORazepam 0.5 MG TABLET PO (10:12)
[2018-12-23] MEDS: FOSAPREPITANT 150 MG in SODIUM CHLORIDE 0.9% 150 ML 300 ML IV (10:32)
[2018-12-23] MEDS: ONDANSETRON 16 MG in SODIUM CHLORIDE 0.9% 50 ML 232 ML IV (11:24)
[2018-12-23] MEDS: SODIUM CHLORIDE 0.9% IV (12:01)
[2018-12-23] MEDS: PEMETREXED IV (12:01)
[2018-12-23] MEDS: MANNITOL IV (12:23)
[2018-12-23] MEDS: [UNRECOGNIZED DRUG - OTHER] IV (12:23)
[2018-12-23] MEDS: MAGNESIUM SULFATE IV (12:23)
[2018-12-23] MEDS: CISPLATIN IV (12:23)
[2018-12-30 12:27] LABS: Add Manual Diff / Slide Review NO; Basophils Absolute Auto 0 /uL (0-100); Basophils Percent Auto 0.7 % (0-2); Eosinophils Absolute Auto 0 /uL (0-450); Eosinophils Percent Auto 0.8 % (2-4); Hematocrit 38.3 % (36-46); Hemoglobin 12.9 g/dL (12.0-16.0); Lymphocytes Absolute Auto 1600 /uL (1100-4500); Lymphocytes Percent Auto 48.6 % (25-40); Mean Corpuscular HGB Conc 33.7 % (30-36); Mean Corpuscular Hemoglobin 32.2 PG (26-34); Mean Corpuscular Volume 95.4 fL (80-100); Monocytes Absolute Auto 400 /uL (0-900); Monocytes Percent Auto 13.5 % (3-14); Neutrophils Absolute Auto 1200 /uL (1500-7000); Neutrophils Percent Auto 36.4 % (50-75); Platelet Count 181 X10^3/uL (150-400); Red Blood Cell Count 4.01 X10^6/uL (4.0-5.2); White Blood Cell Count 3.3 X10^3/uL (4.5-11.0)
[2018-12-30 12:42] LABS: Alanine Aminotransferase 51 IU/L (9-52); Albumin 4.3 g/dL (3.5-5.0); Albumin Globulin Ratio 1.7 (1.0-2.8); Alkaline Phosphatase 62 U/L (38-126); Aspartate Aminotransferase 38 IU/L (14-36); Bilirubin Total 0.5 mg/dL (0.2-1.3); Blood Urea Nitrogen 15 mg/dL (7-17); Calcium 9.5 mg/dL (8.4-10.2); Carbon Dioxide 27 mmol/L (22-32); Chloride 98 mmol/L (98-107); Estimated Glomerular Filt Rate > 60.0 mL/min (>60); Globulin 2.6 g/dL (1.7-4.1); Glucose 174 mg/dL (70-100); HEMOLYSIS 38 (0-50); Magnesium 1.9 mg/dL (1.6-2.3); Potassium 4.4 mmol/L (3.4-5.1); Sodium 137 mmol/L (137-145); Total Protein 6.9 g/dL (6.3-8.2)
[2019-01-13 09:05] VITALS: BP 127/85; PULSE 100; RESP 22; TEMP 37.2; O2SAT 96
[2019-01-13 09:12] LABS: Add Manual Diff / Slide Review NO; Basophils Absolute Auto 0 /uL (0-100); Basophils Percent Auto 0.6 % (0-2); Eosinophils Absolute Auto 0 /uL (0-450); Eosinophils Percent Auto 0.5 % (2-4); Hematocrit 36.1 % (36-46); Hemoglobin 12.2 g/dL (12.0-16.0); Lymphocytes Absolute Auto 1600 /uL (1100-4500); Mean Corpuscular HGB Conc 33.8 % (30-36); Mean Corpuscular Hemoglobin 32.9 PG (26-34); Mean Corpuscular Volume 97.3 fL (80-100); Monocytes Absolute Auto 800 /uL (0-900); Monocytes Percent Auto 13.6 % (3-14); Neutrophils Absolute Auto 3400 /uL (1500-7000); Neutrophils Percent Auto 58.3 % (50-75); Platelet Count 394 X10^3/uL (150-400); Red Blood Cell Count 3.72 X10^6/uL (4.0-5.2); Red Cell Distribution Width 15.8 % (11.6-14.8); White Blood Cell Count 5.9 X10^3/uL (4.5-11.0)
[2019-01-13 09:33] LABS: Alanine Aminotransferase 38 IU/L (9-52); Albumin 4.4 g/dL (3.5-5.0); Albumin Globulin Ratio 1.4 (1.0-2.8); Alkaline Phosphatase 71 U/L (38-126); Aspartate Aminotransferase 32 IU/L (14-36); Bilirubin Total 0.3 mg/dL (0.2-1.3); Blood Urea Nitrogen 13 mg/dL (7-17); Calcium 10.2 mg/dL (8.4-10.2); Carbon Dioxide 26 mmol/L (22-32); Chloride 102 mmol/L (98-107); Estimated Glomerular Filt Rate > 60.0 mL/min (>60); Globulin 3.1 g/dL (1.7-4.1); Glucose 146 mg/dL (70-100); HEMOLYSIS < 15 (0-50); Magnesium 2.1 mg/dL (1.6-2.3); Sodium 137 mmol/L (137-145); Total Protein 7.5 g/dL (6.3-8.2)
--- NOTE | 2019-01-13 09:43 | ONC.PN ---
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 Surgical resection August 2018 2. 3 cycles of cisplatin and Alimta Interval history: The patient is a 58-year-old woman who returns today for follow-up. She has a history of adenocarcinoma of the right lower lobe. She has completed her 3nd cycle of adjuvant chemotherapy. She is due for her 4th and final cycle today. She tolerated the 3rd cycle without too much difficulty. She did have some nausea and a couple episodes of emesis but it seemed to respond well to Compazine. Her strength and energy level have been pretty good. She denies any shortness of breath cough for chest pain. She has not had any mouth sores. Her appetite has been good. Bowels have been moving normally. She has not noticed any neuropathy. She denies any other changes in her health. - Patient Self-Reported Symptoms SR ears, nose, mouth, throat issues: Cough SR respiratory issues: Cough, Shortness of breath SR Skin issues: Dry skin SR Gastrointestinal issues: Constipation SR Musculoskeletal issues: Muscle weakness Home Medications and Allergies Home Medications Medication Instructions Recorded Confirmed Type ibuprofen 800 mg PO PRN PRN #0 09/24/10 01/13/19 History calcium carbonate [Calcium 500] 500 mg PO DAILY #0 05/24/11 01/13/19 History CA PANTOTHENATE/FOLIC ACID/VIT See Rx Instructions .ROUTE 07/31/12 01/13/19 History (MULTIVITAMIN) .COMPLEX #0 cholecalciferol (vitamin D3) 5,000 unit PO DAILY #0 07/31/12 01/13/19 History [Vitamin D3] Flovent HFA 1 puff INHALATION BID #0 06/23/17 01/13/19 History Stiolto Respimat 2 puff INHALATION DAILY #0 06/23/17 01/13/19 History dexamethasone 4 mg PO Q12H 90 Days #24 tab 10/21/18 01/13/19 Rx albuterol sulfate 3 ml INH Q6HP PRN 10/23/18 01/13/19 History loratadine 10 mg PO DAILY 11/03/18 01/13/19 History folic acid 1 mg PO QDAY #30 tab 12/02/18 01/13/19 Rx ondansetron HCl 8 mg PO Q8H PRN #30 tab 12/23/18 01/13/19 Rx prochlorperazine maleate 10 mg PO Q6H PRN 21 Days #30 tab 12/23/18 01/13/19 Rx [Compazine] Allergies Allergy/AdvReac Type Severity Reaction Status Date / Time bee pollen [BEE POLLEN] Allergy Severe Anaphylaxis Verified 11/06/18 13:47 Sulfa (Sulfonamide Allergy Severe Anaphylaxis Verified 11/06/18 13:47 Antibiotics) Exam Vital signs: Vital Signs Temp Pulse Resp BP Pulse Ox 01/13/19 09:05 98.9 F 100 H 22 127/85 96 Intake and Output 01/12/19 01/13/19 01/13/19 23:59 07:59 15:59 Other: Weight 92.9 kg Patient Weight 01/13/19 23:59 Weight 92.9 kg - Constitutional positive no acute distress, positive average body habitus - Routine HEENT Exam Head: Present: normocephalic, atraumatic Eye: Present: EOMI, PERRL. Absent: conjunctival icterus, scleral injection ENT: Present: mucous membranes moist, oropharynx clear - Routine Neck Exam Present: supple. Absent: lymphadenopathy, thyromegaly - Routine Respiratory Exam Present: Clear to auscultation bilaterally. Absent: rales, wheezes - Routine Cardiovascular Exam Present: RRR, S1, S2. Absent: murmur - Routine Abdominal Exam Present: soft, normoactive bowel sounds. Absent: tenderness, organomegaly, mass - Routine Extremities Exam Absent: cyanosis, clubbing, edema - Routine Back/Spine Exam Back/Spine: Absent: vertebral tenderness - Routine Skin Exam Present: intact. Absent: cyanosis, petechiae, rash - Routine Neurological Exam Present: alert, oriented X3 - Routine Psychiatric Exam Present: normal affect, normal thought process Results - Labs Laboratory Last Values WBC 5.9 X10^3/uL (4.5-11.0) 01/13/19 08:50 RBC 3.72 X10^6/uL (4.0-5.2) L 01/13/19 08:50 Hgb 12.2 g/dL (12.0-16.0) 01/13/19 08:50 Hct 36.1 % (36-46) 01/13/19 08:50 MCV 97.3 fL (80-100) 01/13/19 08:50 MCH 32.9 PG (26-34) 01/13/19 08:50 MCHC 33.8 % (30-36) 01/13/19 08:50 RDW 15.8 % (11.6-14.8) H 01/13/19 08:50 Plt Count 394 X10^3/uL (150-400) 01/13/19 08:50 Neut % (Auto) 58.3 % (50-75) 01/13/19 08:50 Lymph % (Auto) 27.0 % (25-40) 01/13/19 08:50 [place]house % (Auto) 13.6 % (3-14) 01/13/19 08:50 Eos % (Auto) 0.5 % (2-4) L 01/13/19 08:50 Baso % (Auto) 0.6 % (0-2) 01/13/19 08:50 Neut # (Auto) 3400 /uL (6491-2748) 01/13/19 08:50 Lymph # (Auto) 1600 /uL (5062-8865) 01/13/19 08:50 Morehouse # (Auto) 800 /uL (0-900) 01/13/19 08:50 Eos # (Auto) 0 /uL (0-450) 01/13/19 08:50 Baso # (Auto) 0 /uL (0-100) 01/13/19 08:50 Sodium 137 mmol/L (137-145) 01/13/19 08:50 Potassium 4.0 mmol/L (3.4-5.1) 01/13/19 08:50 Chloride 102 mmol/L (98-107) 01/13/19 08:50 Carbon Dioxide 26 mmol/L (22-32) 01/13/19 08:50 BUN 13 mg/dL (7-17) 01/13/19 08:50 Creatinine 0.50 mg/dL (0.52-1.04) L 01/13/19 08:50 Estimated GFR > 60.0 mL/min (>60) 01/13/19 08:50 BUN/Creatinine Ratio 26.0 (6-22) H 01/13/19 08:50 Glucose 146 mg/dL (70-100) H 01/13/19 08:50 Calcium 10.2 mg/dL (8.4-10.2) 01/13/19 08:50 Magnesium 2.1 mg/dL (1.6-2.3) 01/13/19 08:50 Total Bilirubin 0.3 mg/dL (0.2-1.3) 01/13/19 08:50 AST 32 IU/L (14-36) 01/13/19 08:50 ALT 38 IU/L (9-52) 01/13/19 08:50 Alkaline Phosphatase 71 U/L (38-126) 01/13/19 08:50 Total Protein 7.5 g/dL (6.3-8.2) 01/13/19 08:50 Albumin 4.4 g/dL (3.5-5.0) 01/13/19 08:50 Globulin 3.1 g/dL (1.7-4.1) 01/13/19 08:50 Albumin/Globulin Ratio 1.4 (1.0-2.8) 01/13/19 08:50 - Imaging Additional studies: Procedures Injection of antibiotic (07/31/12) Injection of steroid (07/31/12) Injection or infusion of other therapeutic or prophylactic substance (12/02/13) Other nonoperative respiratory measurements (07/31/12) Assessment and Plan (1) Lung cancer Current visit: No Status: Acute 58-year-old female never smoker with a new diagnosis stage II adenocarcinoma of the right lung. She has tolerated her 3rd cycle of chemotherapy well. She will go ahead with her 4th and final dose today. She will return to clinic in about 6 weeks for follow-up. She does have a CT scan scheduled with her [facility] in February.
[2019-01-13] MEDS: LORazepam 0.5 MG TABLET PO (09:57)
[2019-01-13] MEDS: SODIUM CHLORIDE 0.9% 1,000 ML 500 ML IV (09:57)
[2019-01-13] MEDS: FOSAPREPITANT 150 MG in SODIUM CHLORIDE 0.9% 150 ML 300 ML IV (10:23)
--- NOTE | 2019-01-13 10:55 | ONC.MSW ---
*Pt provided Last Chemo Card.
[2019-01-13] MEDS: ONDANSETRON 16 MG in SODIUM CHLORIDE 0.9% 50 ML 232 ML IV (11:03)
[2019-01-13] MEDS: CYANOCOBALAMIN 1,000 MCG/ML VIAL 1000 MCG SUBCUT (11:05)
[2019-01-13] MEDS: PEMETREXED IV (11:42)
[2019-01-13] MEDS: SODIUM CHLORIDE 0.9% IV (11:42)
[2019-01-13] MEDS: MANNITOL IV (12:11)
[2019-01-13] MEDS: MAGNESIUM SULFATE IV (12:11)
[2019-01-13] MEDS: CISPLATIN IV (12:11)
[2019-01-13] MEDS: [UNRECOGNIZED DRUG - OTHER] IV (12:11)
[2019-01-20 12:27] LABS: Add Manual Diff / Slide Review NO; Basophils Absolute Auto 0 /uL (0-100); Basophils Percent Auto 0.7 % (0-2); Eosinophils Absolute Auto 0 /uL (0-450); Eosinophils Percent Auto 0.4 % (2-4); Hematocrit 34.6 % (36-46); Lymphocytes Absolute Auto 1400 /uL (1100-4500); Lymphocytes Percent Auto 40.9 % (25-40); Mean Corpuscular HGB Conc 34.6 % (30-36); Mean Corpuscular Volume 95.5 fL (80-100); Monocytes Absolute Auto 500 /uL (0-900); Monocytes Percent Auto 14.5 % (3-14); Neutrophils Absolute Auto 1500 /uL (1500-7000); Neutrophils Percent Auto 43.5 % (50-75); Platelet Count 176 X10^3/uL (150-400); Red Blood Cell Count 3.62 X10^6/uL (4.0-5.2); Red Cell Distribution Width 14.8 % (11.6-14.8); White Blood Cell Count 3.5 X10^3/uL (4.5-11.0)
[2019-01-20 12:36] LABS: Alanine Aminotransferase 64 IU/L (9-52); Albumin 4.1 g/dL (3.5-5.0); Albumin Globulin Ratio 1.5 (1.0-2.8); Alkaline Phosphatase 68 U/L (38-126); Aspartate Aminotransferase 43 IU/L (14-36); Bilirubin Total 0.4 mg/dL (0.2-1.3); Blood Urea Nitrogen 17 mg/dL (7-17); Calcium 9.6 mg/dL (8.4-10.2); Carbon Dioxide 28 mmol/L (22-32); Chloride 99 mmol/L (98-107); Estimated Glomerular Filt Rate > 60.0 mL/min (>60); Globulin 2.7 g/dL (1.7-4.1); Glucose 168 mg/dL (70-100); HEMOLYSIS 19 (0-50); Magnesium 1.7 mg/dL (1.6-2.3); Potassium 3.6 mmol/L (3.4-5.1); Sodium 138 mmol/L (137-145); Total Protein 6.8 g/dL (6.3-8.2)
[2019-02-24 13:49] VITALS: BP 141/85; PULSE 92; RESP 20; TEMP 33.3; O2SAT 96
--- NOTE | 2019-02-24 13:50 | ONC.MSW ---
Description: Financial Assistance Activity: Provided pt a check for $325 for reimbursement from the [facility] for accupuncture.
--- NOTE | 2019-02-24 14:08 | ONC.PN ---
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 Surgical resection August 2018 2. 4 cycles of cisplatin and Alimta finishing February 2019. Interval history: The patient is a 58-year-old woman who returns today for follow-up. She has a history of adenocarcinoma of the right lower lobe. She has completed her adjuvant chemotherapy about a month ago. With a final cycle, she did have some increased fatigue and weakness but feels like she is starting to get back on her feet now. She also had an episode of tachycardia. She was seen in the emergency room and found to have atrial fibrillation. She was treated with IV metoprolol on reverted to sinus rhythm and has remained since. She does have a follow-up pending with a steam heating installer. She remains on oral metoprolol and also has been started on aspirin. She is not having any pain in the chest. No shortness of breath. No dizziness or lightheadedness. Her appetite and energy level have been improving. She notices some ringing in the ears that is intermittent as well as some numbness that is been gradually improving. She denies any other effects from the chemotherapy. - Patient Self-Reported Symptoms SR ears, nose, mouth, throat issues: Ears ringing SR respiratory issues: Cough, Shortness of breath SR Cardiovascular issues: Palpitations SR Skin issues: Dry skin SR Gastrointestinal issues: Constipation SR Musculoskeletal issues: Muscle weakness Home Medications and Allergies Home Medications Medication Instructions Recorded Confirmed Type ibuprofen 800 mg PO PRN PRN #0 09/24/10 01/13/19 History calcium carbonate [Calcium 500] 500 mg PO DAILY #0 05/24/11 01/13/19 History CA PANTOTHENATE/FOLIC ACID/VIT See Rx Instructions .ROUTE 07/31/12 01/13/19 History (MULTIVITAMIN) .COMPLEX #0 cholecalciferol (vitamin D3) 5,000 unit PO DAILY #0 07/31/12 01/13/19 History [Vitamin D3] Stiolto Respimat 2 puff INHALATION DAILY #0 06/23/17 01/28/19 History albuterol sulfate 3 ml INH Q6HP PRN 10/23/18 01/13/19 History loratadine 10 mg PO DAILY 11/03/18 01/13/19 History ondansetron HCl 8 mg PO Q8H PRN #30 tab 12/23/18 01/13/19 Rx prochlorperazine maleate 10 mg PO Q6H PRN 21 Days #30 tab 12/23/18 01/13/19 Rx [Compazine] fluticasone propionate [Flovent 1 puff INHALATION BID 01/28/19 02/24/19 History HFA] folic acid 1 mg PO DAILY 01/28/19 02/24/19 History metoprolol succinate 25 mg PO BID #60 tab 01/28/19 Rx aspirin 81 mg PO DAILY 02/24/19 02/24/19 History Allergies Allergy/AdvReac Type Severity Reaction Status Date / Time bee pollen [BEE POLLEN] Allergy Severe Anaphylaxis Verified 01/28/19 16:51 Sulfa (Sulfonamide Allergy Severe Anaphylaxis Verified 01/28/19 16:51 Antibiotics) Exam Vital signs: Vital Signs Temp Pulse Resp BP Pulse Ox 02/24/19 13:49 92 F L 92 H 20 141/85 H 96 Intake and Output 02/23/19 02/24/19 02/24/19 23:59 07:59 15:59 Other: Weight 93 kg Patient Weight 02/24/19 23:59 Weight 93 kg - Constitutional positive no acute distress, positive average body habitus - Routine HEENT Exam Head: Present: normocephalic, atraumatic Eye: Present: EOMI, PERRL. Absent: conjunctival icterus, scleral injection ENT: Present: mucous membranes moist, oropharynx clear - Routine Neck Exam Present: supple. Absent: lymphadenopathy, thyromegaly - Routine Respiratory Exam Present: Clear to auscultation bilaterally. Absent: rales, wheezes - Routine Cardiovascular Exam Present: RRR, S1, S2. Absent: murmur - Routine Abdominal Exam Present: soft, normoactive bowel sounds. Absent: tenderness, organomegaly, mass - Routine Extremities Exam Absent: cyanosis, clubbing, edema - Routine Back/Spine Exam Back/Spine: Absent: vertebral tenderness - Routine Skin Exam Present: intact. Absent: petechiae, rash - Routine Neurological Exam Present: alert, oriented X3 - Routine Psychiatric Exam Present: normal affect, normal thought process Results - Labs Laboratory Last Values WBC 3.5 X10^3/uL (4.5-11.0) L 01/20/19 12:15 RBC 3.62 X10^6/uL (4.0-5.2) L 01/20/19 12:15 Hgb 12.0 g/dL (12.0-16.0) 01/20/19 12:15 Hct 34.6 % (36-46) L 01/20/19 12:15 MCV 95.5 fL (80-100) 01/20/19 12:15 MCH 33.0 PG (26-34) 01/20/19 12:15 MCHC 34.6 % (30-36) 01/20/19 12:15 RDW 14.8 % (11.6-14.8) 01/20/19 12:15 Plt Count 176 X10^3/uL (150-400) 01/20/19 12:15 Neut % (Auto) 43.5 % (50-75) L 01/20/19 12:15 Lymph % (Auto) 40.9 % (25-40) H 01/20/19 12:15 [place] % (Auto) 14.5 % (3-14) H 01/20/19 12:15 Eos % (Auto) 0.4 % (2-4) L 01/20/19 12:15 Baso % (Auto) 0.7 % (0-2) 01/20/19 12:15 Neut # (Auto) 1500 /uL (3258-8685) 01/20/19 12:15 Lymph # (Auto) 1400 /uL (1879-8771) 01/20/19 12:15 [place] # (Auto) 500 /uL (0-900) 01/20/19 12:15 Eos # (Auto) 0 /uL (0-450) 01/20/19 12:15 Baso # (Auto) 0 /uL (0-100) 01/20/19 12:15 Sodium 138 mmol/L (137-145) 01/20/19 12:15 Potassium 3.6 mmol/L (3.4-5.1) 01/20/19 12:15 Chloride 99 mmol/L (98-107) 01/20/19 12:15 Carbon Dioxide 28 mmol/L (22-32) 01/20/19 12:15 BUN 17 mg/dL (7-17) 01/20/19 12:15 Creatinine 0.50 mg/dL (0.52-1.04) L 01/20/19 12:15 Estimated GFR > 60.0 mL/min (>60) 01/20/19 12:15 BUN/Creatinine Ratio 34.0 (6-22) H 01/20/19 12:15 Glucose 168 mg/dL (70-100) H 01/20/19 12:15 Calcium 9.6 mg/dL (8.4-10.2) 01/20/19 12:15 Magnesium 1.7 mg/dL (1.6-2.3) 01/20/19 12:15 Total Bilirubin 0.4 mg/dL (0.2-1.3) 01/20/19 12:15 AST 43 IU/L (14-36) H 01/20/19 12:15 ALT 64 IU/L (9-52) H 01/20/19 12:15 Alkaline Phosphatase 68 U/L (38-126) 01/20/19 12:15 Total Protein 6.8 g/dL (6.3-8.2) 01/20/19 12:15 Albumin 4.1 g/dL (3.5-5.0) 01/20/19 12:15 Globulin 2.7 g/dL (1.7-4.1) 01/20/19 12:15 Albumin/Globulin Ratio 1.5 (1.0-2.8) 01/20/19 12:15 - Imaging Additional studies: Procedures Injection of antibiotic (07/31/12) Injection of steroid (07/31/12) Injection or infusion of other therapeutic or prophylactic substance (12/02/13) Other nonoperative respiratory measurements (07/31/12) Assessment and Plan (1) Lung cancer Current visit: No Status: Acute 58-year-old female never smoker with a new diagnosis stage II adenocarcinoma of the right lung. She has completed her adjuvant chemotherapy. She had a CT scan done that showed no evidence of disease. She return to clinic in about 3 months for follow-up. I think if she is doing well, we will probably be able to get her port taken out at that time.
[2019-02-24 14:32] LABS: Add Manual Diff / Slide Review NO; Basophils Absolute Auto 100 /uL (0-100); Eosinophils Absolute Auto 100 /uL (0-450); Hematocrit 36.3 % (36-46); Hemoglobin 12.4 g/dL (12.0-16.0); Lymphocytes Absolute Auto 2000 /uL (1100-4500); Lymphocytes Percent Auto 37.1 % (25-40); Mean Corpuscular HGB Conc 34.1 % (30-36); Mean Corpuscular Hemoglobin 34.3 PG (26-34); Mean Corpuscular Volume 100.6 fL (80-100); Monocytes Absolute Auto 600 /uL (0-900); Monocytes Percent Auto 11.2 % (3-14); Neutrophils Absolute Auto 2700 /uL (1500-7000); Neutrophils Percent Auto 49.7 % (50-75); Platelet Count 270 X10^3/uL (150-400); Red Blood Cell Count 3.61 X10^6/uL (4.0-5.2); Red Cell Distribution Width 15.7 % (11.6-14.8); White Blood Cell Count 5.4 X10^3/uL (4.5-11.0)
[2019-02-24 14:51] LABS: Alanine Aminotransferase 69 IU/L (9-52); Albumin 4.6 g/dL (3.5-5.0); Albumin Globulin Ratio 1.5 (1.0-2.8); Alkaline Phosphatase 65 U/L (38-126); Aspartate Aminotransferase 50 IU/L (14-36); Bilirubin Total 0.4 mg/dL (0.2-1.3); Blood Urea Nitrogen 15 mg/dL (7-17); Calcium 10.1 mg/dL (8.4-10.2); Carbon Dioxide 28 mmol/L (22-32); Chloride 102 mmol/L (98-107); Estimated Glomerular Filt Rate > 60.0 mL/min (>60); Glucose 105 mg/dL (70-100); HEMOLYSIS 21 (0-50); Sodium 140 mmol/L (137-145); Total Protein 7.6 g/dL (6.3-8.2)
--- NOTE | 2019-03-10 13:30 | ONC.MSW ---
Description: Financial Assistance Activity: Completed a check for $150.00 from the [facility] Medical Relief Fund for medical reimbursement. Called pt to let her know that it's ready to pick-up.
[2019-05-19 15:12] VITALS: BP 158/76; PULSE 88; RESP 16; TEMP 36.1; O2SAT 97
--- NOTE | 2019-05-19 15:30 | P.PNONC_ITS ---
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 Surgical resection August 2018 2. 4 cycles of cisplatin and Alimta finishing February 2019. Interval history: The patient is a 59-year-old woman who returns today for follow-up. She has a history of adenocarcinoma of the right lower lobe. She has completed her adjuvant chemotherapy about 3 months ago. She has had some paroxysmal atrial fibrillation but has not had any episodes over the last couple of weeks. She tells me that she is planning an ablation procedure early next year. She denies any new aches or pains. No fevers or chills. She is not having any shortness of breath but does have a little bit of a cough. Appetite has been good. 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 She also has noted some ringing in her ears. She denies any other long-lasting effects from her treatment. She is otherwise without complaint today. She does state that her nub card tender will be ordering a CT scan in August. - Patient Self-Reported Symptoms SR ears, nose, mouth, throat issues: Ears ringing SR respiratory issues: Cough, Shortness of breath SR Cardiovascular issues: Palpitations SR Skin issues: Dry skin SR Gastrointestinal issues: Constipation SR Musculoskeletal issues: Muscle weakness SR Neuro issues: Numbness or tingling Home Medications and Allergies Home Medications Medication Instructions Recorded Confirmed Type ibuprofen 800 mg PO PRN PRN #0 09/24/10 01/13/19 History calcium carbonate [Calcium 500] 500 mg PO DAILY #0 05/24/11 01/13/19 History CA PANTOTHENATE/FOLIC ACID/VIT See Rx Instructions .ROUTE 07/31/12 01/13/19 History (MULTIVITAMIN) .COMPLEX #0 cholecalciferol (vitamin D3) 5,000 unit PO DAILY #0 07/31/12 01/13/19 History [Vitamin D3] Stiolto Respimat 2 puff INHALATION DAILY #0 06/23/17 01/28/19 History albuterol sulfate 3 ml INH Q6HP PRN 10/23/18 01/13/19 History loratadine 10 mg PO DAILY 11/03/18 01/13/19 History ondansetron HCl 8 mg PO Q8H PRN #30 tab 12/23/18 01/13/19 Rx fluticasone propionate [Flovent 1 puff INHALATION BID 01/28/19 02/24/19 History HFA] folic acid 1 mg PO DAILY 01/28/19 02/24/19 History metoprolol succinate 25 mg PO BID #60 tab 01/28/19 Rx aspirin 81 mg PO DAILY 02/24/19 02/24/19 History hydrochlorothiazide 25 mg PO DAILY 05/19/19 05/19/19 History Allergies Allergy/AdvReac Type Severity Reaction Status Date / Time bee pollen [BEE POLLEN] Allergy Severe Anaphylaxis Verified 01/28/19 16:51 Sulfa (Sulfonamide Allergy Severe Anaphylaxis Verified 01/28/19 16:51 Antibiotics) Exam Vital signs: Vital Signs Temp Pulse Resp BP Pulse Ox 05/19/19 15:12 97.0 F L 88 16 158/76 H 97 Intake and Output 05/18/19 05/19/19 05/19/19 23:59 07:59 15:59 Other: Weight 97 kg Patient Weight 05/19/19 23:59 Weight 97 kg - Constitutional positive no acute distress, positive average body habitus - Routine HEENT Exam Head: Present: normocephalic, atraumatic Eye: Present: EOMI, PERRL. Absent: conjunctival icterus ENT: Present: mucous membranes moist, oropharynx clear - Routine Neck Exam Present: supple. Absent: lymphadenopathy, thyromegaly - Routine Respiratory Exam Present: Clear to auscultation bilaterally. Absent: rales, wheezes - Routine Cardiovascular Exam Present: RRR, S1, S2. Absent: murmur - Routine Abdominal Exam Present: soft, normoactive bowel sounds. Absent: tenderness, organomegaly, mass - Routine Extremities Exam Absent: cyanosis, clubbing, edema - Routine Back/Spine Exam Back/Spine: Absent: vertebral tenderness - Routine Skin Exam Present: intact. Absent: petechiae, rash - Routine Neurological Exam Present: alert, oriented X3 - Routine Psychiatric Exam Present: normal affect, normal thought process Results - Labs Laboratory Last Values WBC 5.4 X10^3/uL (4.5-11.0) 02/24/19 14:20 RBC 3.61 X10^6/uL (4.0-5.2) L 02/24/19 14:20 Hgb 12.4 g/dL (12.0-16.0) 02/24/19 14:20 Hct 36.3 % (36-46) 02/24/19 14:20 MCV 100.6 fL (80-100) H 02/24/19 14:20 MCH 34.3 PG (26-34) H 02/24/19 14:20 MCHC 34.1 % (30-36) 02/24/19 14:20 RDW 15.7 % (11.6-14.8) H 02/24/19 14:20 Plt Count 270 X10^3/uL (150-400) 02/24/19 14:20 Neut % (Auto) 49.7 % (50-75) L 02/24/19 14:20 Lymph % (Auto) 37.1 % (25-40) 02/24/19 14:20 Hawkins % (Auto) 11.2 % (3-14) 02/24/19 14:20 Eos % (Auto) 1.0 % (2-4) L 02/24/19 14:20 Baso % (Auto) 1.0 % (0-2) 02/24/19 14:20 Neut # (Auto) 2700 /uL (2473-1291) 02/24/19 14:20 Lymph # (Auto) 2000 /uL (2079-2561) 02/24/19 14:20 Hawkins # (Auto) 600 /uL (0-900) 02/24/19 14:20 Eos # (Auto) 100 /uL (0-450) 02/24/19 14:20 Baso # (Auto) 100 /uL (0-100) 02/24/19 14:20 Sodium 140 mmol/L (137-145) 02/24/19 14:20 Potassium 4.0 mmol/L (3.4-5.1) 02/24/19 14:20 Chloride 102 mmol/L (98-107) 02/24/19 14:20 Carbon Dioxide 28 mmol/L (22-32) 02/24/19 14:20 BUN 15 mg/dL (7-17) 02/24/19 14:20 Creatinine 0.60 mg/dL (0.52-1.04) 02/24/19 14:20 Estimated GFR > 60.0 mL/min (>60) 02/24/19 14:20 BUN/Creatinine Ratio 25.0 (6-22) H 02/24/19 14:20 Glucose 105 mg/dL (70-100) H 02/24/19 14:20 Calcium 10.1 mg/dL (8.4-10.2) 02/24/19 14:20 Magnesium 1.7 mg/dL (1.6-2.3) 01/20/19 12:15 Total Bilirubin 0.4 mg/dL (0.2-1.3) 02/24/19 14:20 AST 50 IU/L (14-36) H 02/24/19 14:20 ALT 69 IU/L (9-52) H 02/24/19 14:20 Alkaline Phosphatase 65 U/L (38-126) 02/24/19 14:20 Total Protein 7.6 g/dL (6.3-8.2) 02/24/19 14:20 Albumin 4.6 g/dL (3.5-5.0) 02/24/19 14:20 Globulin 3.0 g/dL (1.7-4.1) 02/24/19 14:20 Albumin/Globulin Ratio 1.5 (1.0-2.8) 02/24/19 14:20 - Imaging Additional studies: Procedures Injection of antibiotic (07/31/12) Injection of steroid (07/31/12) Injection or infusion of other therapeutic or prophylactic substance (12/02/13) Other nonoperative respiratory measurements (07/31/12) Assessment and Plan (1) Lung cancer Current visit: No Status: Acute 58-year-old female never smoker with a new diagnosis stage II adenocarcinoma of the right lung. She has no evidence of disease and is doing well. She'll return to clinic in about 6 months for follow-up. I did place a referral to have her port removed.
--- NOTE | 2019-05-25 16:48 | ONC.SCHED ---
Patient has an active auth with [facility] to [facility] for the port removal. I contact Ernestine at [facility] and she will contact the patient for the port removal day/time.
[2019-12-07 14:40] VITALS: BP 129/73; PULSE 80; RESP 16; TEMP 36.3; O2SAT 97
--- NOTE | 2019-12-07 15:01 | P.PNONC_ITS ---
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 Surgical resection August 2018 2. 4 cycles of cisplatin and Alimta finishing February 2019. Interval history: The patient is a 59-year-old woman who returns today for follow-up. He has recently undergone cardiac ablation for atrial flutter. Patient has some shortness of breath with good days and bad days. Patient said that this could be due to her concurrent COPD. She denies any new bone pain. Patient denies any nausea or vomiting. She denies any diarrhea or constipation. She underwent CT chest in July 2019. The scan showed stable postoperative change after right upper lobectomy. No recurrent neoplasm in that area operative intervention is identified. Left lower lobe new mass lesion with adjacent alveolar infiltrating measuring approximately 1.6 cm in maximal dimension worrisome for new primary bronchogenic carcinoma. Left lower lobe new mass lesion with mild adjacent alveolar infiltrating measured approximately 1.3 cm in maximal dimension worrisome for primary focus of bronchogenic carcinoma. According to patient, she underwent PET scan there after and it was ?no abnormal findings?. She is also being followed by her family engagement specialist. - Patient Self-Reported Symptoms SR ears, nose, mouth, throat issues: Ears ringing SR respiratory issues: Shortness of breath SR Cardiovascular issues: Palpitations SR Skin issues: Dry skin SR Gastrointestinal issues: Constipation SR Musculoskeletal issues: Muscle weakness SR Neuro issues: Numbness or tingling - Additional ROS All systems PM: reviewed and no additional remarkable complaints except as stated Home Medications and Allergies Home Medications Medication Instructions Recorded Confirmed Type calcium carbonate [Calcium 500] 500 mg PO DAILY #0 05/24/11 07/02/19 History cholecalciferol (vitamin D3) 5,000 unit PO DAILY #0 07/31/12 07/02/19 History [Vitamin D3] Stiolto Respimat 2 puff INHALATION DAILY #0 06/23/17 07/02/19 History albuterol sulfate 3 ml INH Q6HP PRN 10/23/18 07/02/19 History loratadine 10 mg PO DAILY 11/03/18 07/02/19 History Flovent HFA 1 puff INHALATION BID 01/28/19 07/02/19 History metoprolol succinate 25 mg PO BID #60 tab 01/28/19 07/02/19 Rx aspirin 81 mg PO DAILY 02/24/19 07/02/19 History hydrochlorothiazide 25 mg PO DAILY 05/19/19 07/02/19 History naproxen [Naprosyn] 500 mg PO BID PRN #20 tab 08/30/19 Rx Allergies Allergy/AdvReac Type Severity Reaction Status Date / Time bee pollen [BEE POLLEN] Allergy Severe Anaphylaxis Verified 08/30/19 07:34 Sulfa (Sulfonamide Allergy Severe Anaphylaxis Verified 08/30/19 07:34 Antibiotics) Exam Vital signs: Vital Signs Temp Pulse Resp BP Pulse Ox 12/07/19 14:40 97.3 F L 80 16 129/73 97 Intake and Output 12/06/19 12/07/19 12/07/19 23:59 07:59 15:59 Other: Weight 94.3 kg Patient Weight 12/07/19 23:59 Weight 94.3 kg - Constitutional positive no acute distress, positive obese, positive cooperative - Routine HEENT Exam Head: Present: normocephalic, atraumatic Eye: Present: EOMI, PERRL, normal accommodation. Absent: conjunctival icterus - Routine Neck Exam Present: supple. Absent: lymphadenopathy, thyromegaly - Routine Chest/Breast/Axilla Exam Axillae: Absent: lymphadenopathy - Routine Respiratory Exam Present: rhonchi, wheezes. Absent: accessory muscle use - Routine Cardiovascular Exam Present: RRR, S1, S2. Absent: murmur, gallop, rubs - Routine Abdominal Exam Present: soft. Absent: tenderness, distended - Routine Extremities Exam Absent: edema - Routine Neurological Exam Present: alert, oriented X3, CN II-XII intact. Absent: sensory deficit, motor deficit - Routine Psychiatric Exam Present: normal affect Results - Labs Laboratory tests from 12/04/2019: WBC 6.6, hemoglobin 13 5, hematocrit 39.0, MCV 97.4, platelets 262. Sodium 137, potassium 3.8, chloride 99, carbon dioxide 34, BUN 23, creatinine 0.66, glucose 139, calcium 9.8, AST 51, ALT 75, alk phos 73, total protein 7.5, albumin 4.4. - Imaging Additional studies: Procedures Injection of antibiotic (07/31/12) Injection of steroid (07/31/12) Injection or infusion of other therapeutic or prophylactic substance (12/02/13) Other nonoperative respiratory measurements (07/31/12) Assessment and Plan (1) Lung cancer 59-year-old female never smoker with stage II adenocarcinoma of the right lung. Clinically, he has no signs or symptoms to suggest disease recurrence metastasis. Furthermore according to patient, she has been followed by family engagement specialist and underwent PET scan recently and which was unrevealing. Patient will continue follow-up with the family engagement specialist. I will see the patient in about 6 months. Plan: 1. I will try to get the medical records from family engagement specialist. 2. RTC in 6 months 3. F/u with her family engagement specialist as planned.
--- NOTE | 2020-05-19 11:44 | ONC.PN ---
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 Surgical resection August 2018 2. Adjuvant Cisplatin and Alimta x 4 cycles completed February 2019. Interval history: The patient is a 60-year-old woman who returns today for follow-up. She reports no worsening shortness of breath, and she feels better than ever. Not even a cold has bothered her. She reports no chest pain, and no cough. She reports left sided pelvic burning and ache on 02/29/2020. She is now on intentional weight control. On 03/01/2020, follow CT chest wo contrast showed interval resolution of previously airspace nodular densities, but 3 new masslike opacities noted (2 in left upper lobe and 1 in the right lower), bilateral subpleural nodules and bronchiectasis noted. and incidental findings of small hiatal hernia, hepatic steatosis and colonic diverticulosis. On 04/22/2020, she underwent US pelvic complete for ovarian cyst follow up.It showed continued slow growth of a left adnexal cystic mass now measuring 7.1 x 5.4 cm. On 05/11/2020, she underwent MR pelvis wo/w contrast. It showed progressive increase in size of a thin walled left adnexal cystic mass with small areas of focal wall thickening suspicious for a cystic neoplasm, and small enhancing lesion in the left iliac wing which appeared increased in size. - Patient Self-Reported Symptoms SR ears, nose, mouth, throat issues: Ears ringing SR respiratory issues: Shortness of breath SR Cardiovascular issues: Palpitations SR Skin issues: Dry skin SR Gastrointestinal issues: Constipation SR Musculoskeletal issues: Muscle weakness SR Neuro issues: Numbness or tingling - Additional ROS All systems PM: reviewed and no additional remarkable complaints except as stated Home Medications and Allergies Home Medications Medication Instructions Recorded Confirmed Type calcium carbonate [Calcium 500] 500 mg PO DAILY #0 05/24/11 05/19/20 History cholecalciferol (vitamin D3) 5,000 unit PO DAILY #0 07/31/12 05/19/20 History [Vitamin D3] Stiolto Respimat 2 puff INHALATION DAILY #0 06/23/17 05/19/20 History albuterol sulfate 3 ml INH Q6HP PRN 10/23/18 05/19/20 History loratadine 10 mg PO DAILY 11/03/18 05/19/20 History Flovent HFA 1 puff INHALATION BID 01/28/19 05/19/20 History aspirin 81 mg PO DAILY 02/24/19 05/19/20 History hydrochlorothiazide 25 mg PO DAILY 05/19/19 05/19/20 History Allergies Allergy/AdvReac Type Severity Reaction Status Date / Time bee pollen [BEE POLLEN] Allergy Severe Anaphylaxis Verified 08/30/19 07:34 Sulfa (Sulfonamide Allergy Severe Anaphylaxis Verified 08/30/19 07:34 Antibiotics) Exam Vital signs: 05/19/20 12:15 Last Vital Signs Temp 98 F 05/19/20 11:46 Pulse 82 05/19/20 11:46 Resp 18 05/19/20 11:46 BP 135/88 05/19/20 11:46 Pulse Ox 96 05/19/20 11:46 - Constitutional positive no acute distress, positive obese, positive cooperative - Routine HEENT Exam Head: Present: normocephalic, atraumatic Eye: Present: EOMI, PERRL, normal accommodation. Absent: conjunctival icterus - Routine Neck Exam Present: supple. Absent: lymphadenopathy, thyromegaly - Routine Chest/Breast/Axilla Exam Axillae: Absent: lymphadenopathy - Routine Respiratory Exam Present: Clear to auscultation bilaterally. Absent: wheezes - Routine Cardiovascular Exam Present: RRR, S1, S2. Absent: murmur, gallop, rubs - Routine Abdominal Exam Present: soft. Absent: tenderness, organomegaly - Routine Extremities Exam Absent: edema - Routine Neurological Exam Present: alert, oriented X3, CN II-XII intact. Absent: sensory deficit, motor deficit - Routine Psychiatric Exam Present: normal affect Results - Labs Laboratory Last Values WBC 5.4 X10^3/uL (4.5-11.0) 02/24/19 14:20 RBC 3.61 X10^6/uL (4.0-5.2) L 02/24/19 14:20 Hgb 12.4 g/dL (12.0-16.0) 02/24/19 14:20 Hct 36.3 % (36-46) 02/24/19 14:20 MCV 100.6 fL (80-100) H 02/24/19 14:20 MCH 34.3 PG (26-34) H 02/24/19 14:20 MCHC 34.1 % (30-36) 02/24/19 14:20 RDW 15.7 % (11.6-14.8) H 02/24/19 14:20 Plt Count 270 X10^3/uL (150-400) 02/24/19 14:20 Neut % (Auto) 49.7 % (50-75) L 02/24/19 14:20 Lymph % (Auto) 37.1 % (25-40) 02/24/19 14:20 [place] % (Auto) 11.2 % (3-14) 02/24/19 14:20 Eos % (Auto) 1.0 % (2-4) L 02/24/19 14:20 Baso % (Auto) 1.0 % (0-2) 02/24/19 14:20 Neut # (Auto) 2700 /uL (6900-5490) 02/24/19 14:20 Lymph # (Auto) 2000 /uL (0619-1890) 02/24/19 14:20 [place] # (Auto) 600 /uL (0-900) 02/24/19 14:20 Eos # (Auto) 100 /uL (0-450) 02/24/19 14:20 Baso # (Auto) 100 /uL (0-100) 02/24/19 14:20 Sodium 140 mmol/L (137-145) 02/24/19 14:20 Potassium 4.0 mmol/L (3.4-5.1) 02/24/19 14:20 Chloride 102 mmol/L (98-107) 02/24/19 14:20 Carbon Dioxide 28 mmol/L (22-32) 02/24/19 14:20 BUN 15 mg/dL (7-17) 02/24/19 14:20 Creatinine 0.60 mg/dL (0.52-1.04) 02/24/19 14:20 Estimated GFR > 60.0 mL/min (>60) 02/24/19 14:20 BUN/Creatinine Ratio 25.0 (6-22) H 02/24/19 14:20 Glucose 105 mg/dL (70-100) H 02/24/19 14:20 Calcium 10.1 mg/dL (8.4-10.2) 02/24/19 14:20 Magnesium 1.7 mg/dL (1.6-2.3) 01/20/19 12:15 Total Bilirubin 0.4 mg/dL (0.2-1.3) 02/24/19 14:20 AST 50 IU/L (14-36) H 02/24/19 14:20 ALT 69 IU/L (9-52) H 02/24/19 14:20 Alkaline Phosphatase 65 U/L (38-126) 02/24/19 14:20 Total Protein 7.6 g/dL (6.3-8.2) 02/24/19 14:20 Albumin 4.6 g/dL (3.5-5.0) 02/24/19 14:20 Globulin 3.0 g/dL (1.7-4.1) 02/24/19 14:20 Albumin/Globulin Ratio 1.5 (1.0-2.8) 02/24/19 14:20 - Imaging Additional studies: Procedures Injection of antibiotic (07/31/12) Injection of steroid (07/31/12) Injection or infusion of other therapeutic or prophylactic substance (12/02/13) Other nonoperative respiratory measurements (07/31/12) Assessment and Plan (1) Lung cancer 60-year-old female never smoker with stage II adenocarcinoma of the right lung. Clinically, he has no signs or symptoms to suggest disease recurrence metastasis. Furthermore according to patient, she has been followed by disaster or damage control specialist and underwent PET scan recently and which was unrevealing. Patient will continue follow-up with the disaster or damage control specialist. I will see the patient in about 6 months. I reviewed the scan results with the patient. The CT scan showed that the previously lung nodules have resolved; however there are new pulmonary opacities. Currently patient is being followed by Dr. Blair, disaster or damage control specialist at [place]. Dr. Sampson has already ordered repeat CT scan. I also reviewed the pelvic ultrasound and pelvic MRI results with the patient. The left adnexal cyst has been shown to be increasing in size with focal area of wall thickening suspicious for possible cystadenoma. In addition, MRI enhancing lesion noted in the left pelvic wing suspicious for possible bone metastasis. I talked with the patient that I will follow-up our radiologist recommendation for a repeat bone scan. Patient voiced understanding. Plan: 1. CT chest as ordered by Dr. Blair 2. Bone scan 3. CA 125 and HE4 4. RTC in 4 weeks,
[2020-05-19 11:46] VITALS: BP 135/88; PULSE 82; RESP 18; TEMP 36.6; O2SAT 96
[2020-05-26 12:47] LABS: Cancer Antigen 125 10.9 U/mL (0-35)
[2020-05-29 12:36] LABS: Human Epididymis Prot 4 79.5 pmol/L (0.0-96.5)
--- NOTE | 2020-06-15 12:19 | ONC.SCHED ---
06/15/20 Re: Maricarmen Scales 58 Dr[address] Willard This patient was supposed to see you Jun 16, 2020 however she is waiting for [facility] to authorize more visits. It should take about 2 weeks since she has switched her primary care doctor to Santi Huerta at [facility] and her first appointment there is Jun 22, 2020. She wanted to know if she could just schedule her next appointment with you for the beginning of July after she has a cyst removed from her ovary. She is seeing Dr. Nuñez at in [place] for that surgery and hopes to have it scheduled for the end of this month. Is that ok for her schedule her follow up with you in July? Her scan results and Dr Blair notes are in [facility]. Thanks. Ayleen Eden copy sent to Dr Willard , 06/16/20 and waiting on a response
[2020-07-21 09:31] VITALS: BP 135/85; PULSE 81; RESP 18; TEMP 36.4; O2SAT 96
--- NOTE | 2020-07-21 09:41 | ONC.PN ---
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 Surgical resection August 2018 2. Adjuvant Cisplatin and Alimta x 4 cycles completed February 2019. HPI: The patient is a 60-year-old woman who returns today for follow-up. She reports no worsening shortness of breath, and she feels better than ever. Not even a cold has bothered her. She reports no chest pain, and no cough. She reports left sided pelvic burning and ache on 02/29/2020. She is now on intentional weight control. On 03/01/2020, follow CT chest wo contrast showed interval resolution of previously airspace nodular densities, but 3 new masslike opacities noted (2 in left upper lobe and 1 in the right lower), bilateral subpleural nodules and bronchiectasis noted. and incidental findings of small hiatal hernia, hepatic steatosis and colonic diverticulosis. On 04/22/2020, she underwent US pelvic complete for ovarian cyst follow up.It showed continued slow growth of a left adnexal cystic mass now measuring 7.1 x 5.4 cm. On 05/11/2020, she underwent MR pelvis wo/w contrast. It showed progressive increase in size of a thin walled left adnexal cystic mass with small areas of focal wall thickening suspicious for a cystic neoplasm, and small enhancing lesion in the left iliac wing which appeared increased in size. Interval history: Since her previous visit, clinically patient has been doing quite well. She reports no new signs or symptoms. She especially denies any worsening shortness breath or chest pain. No cough. No abdominal pain. No abdominal pain no diarrhea and no constipation. On 05/26/2020, patient underwent whole-body bone scan. It showed no scintigraphic evidence of osseous metastatic disease. No abnormal radiotracer uptake identified in the left iliac bone. Repeat CT chest without contrast on 05/26/2020 also showed resolution of the previously-seen poorly defined opacities within the left upper lobe at the right lower lobe. Emphysematous changes with bronchiectasis noted. Right upper lobectomy noted. In June 2020, patient was evaluated by Dr. Blair. According to patient, patient was started on lifelong antibiotics with azithromycin 3 times a day. She is also scheduled for laparotomy and over rectum is on 08/09/[address] Palak Nuñez - Patient Self-Reported Symptoms SR ears, nose, mouth, throat issues: Ears ringing SR respiratory issues: Shortness of breath SR Cardiovascular issues: Palpitations SR Skin issues: Dry skin SR Gastrointestinal issues: Constipation SR Musculoskeletal issues: Muscle weakness SR Neuro issues: Numbness or tingling - Additional ROS All systems PM: reviewed and no additional remarkable complaints except as stated Home Medications and Allergies Home Medications Medication Instructions Recorded Confirmed Type calcium carbonate [Calcium 500] 500 mg PO DAILY #0 05/24/11 07/21/20 History cholecalciferol (vitamin D3) 5,000 unit PO DAILY #0 07/31/12 07/21/20 History [Vitamin D3] Stiolto Respimat 2 puff INHALATION DAILY #0 06/23/17 07/21/20 History albuterol sulfate 3 ml INH Q6HP PRN 10/23/18 07/21/20 History loratadine 10 mg PO DAILY 11/03/18 07/21/20 History aspirin 81 mg PO DAILY 02/24/19 07/21/20 History azithromycin 250 mg tablet 250 mg PO DAILY 06/22/20 07/21/20 History doxycycline hyclate 100 mg tablet 100 mg PO BID 06/22/20 07/21/20 History epinephrine 0.3 mg/0.3 mL 0.3 mg IM ONCE 06/22/20 07/21/20 History injection, auto-injector fluticasone propionate 220 2 puff INHALATION BID #36 g 06/22/20 07/21/20 Rx mcg/actuation HFA aerosol inhaler epinephrine 0.3 mg/0.3 mL 0.3 mg IM ONCE #2 ea 07/06/20 07/21/20 Rx injection, auto-injector hydrochlorothiazide 25 mg tablet 25 mg PO DAILY #90 tab 07/06/20 07/21/20 Rx Allergies Allergy/AdvReac Type Severity Reaction Status Date / Time bee pollen [BEE POLLEN] Allergy Severe Anaphylaxis Verified 07/06/20 15:15 Sulfa (Sulfonamide Allergy Severe Anaphylaxis Verified 07/06/20 15:15 Antibiotics) Exam Vital signs: Vital Signs Temp Pulse Resp BP Pulse Ox 07/21/20 09:31 97.6 F 81 18 135/85 96 Intake and Output 07/20/20 07/21/20 07/21/20 23:59 07:59 15:59 Other: Weight 88.4 kg Patient Weight 07/21/20 23:59 Weight 88.4 kg - Constitutional positive no acute distress, positive obese, positive cooperative - Routine HEENT Exam Head: Present: normocephalic, atraumatic Eye: Present: EOMI, normal accommodation. Absent: conjunctival icterus - Routine Neck Exam Present: supple. Absent: lymphadenopathy, thyromegaly - Routine Chest/Breast/Axilla Exam Axillae: Absent: lymphadenopathy - Routine Respiratory Exam Present: Clear to auscultation bilaterally. Absent: wheezes - Routine Cardiovascular Exam Present: RRR, S1, S2. Absent: murmur, gallop, rubs - Routine Abdominal Exam Present: soft. Absent: tenderness, distended, organomegaly - Routine Extremities Exam Absent: edema - Routine Neurological Exam Present: alert, oriented X3, CN II-XII intact. Absent: sensory deficit, motor deficit - Routine Psychiatric Exam Present: normal affect Results - Labs Laboratory Last Values WBC 5.4 X10^3/uL (4.5-11.0) 02/24/19 14:20 RBC 3.61 X10^6/uL (4.0-5.2) L 02/24/19 14:20 Hgb 12.4 g/dL (12.0-16.0) 02/24/19 14:20 Hct 36.3 % (36-46) 02/24/19 14:20 MCV 100.6 fL (80-100) H 02/24/19 14:20 MCH 34.3 PG (26-34) H 02/24/19 14:20 MCHC 34.1 % (30-36) 02/24/19 14:20 RDW 15.7 % (11.6-14.8) H 02/24/19 14:20 Plt Count 270 X10^3/uL (150-400) 02/24/19 14:20 Neut % (Auto) 49.7 % (50-75) L 02/24/19 14:20 Lymph % (Auto) 37.1 % (25-40) 02/24/19 14:20 [place] % (Auto) 11.2 % (3-14) 02/24/19 14:20 Eos % (Auto) 1.0 % (2-4) L 02/24/19 14:20 Baso % (Auto) 1.0 % (0-2) 02/24/19 14:20 Neut # (Auto) 2700 /uL (7667-8170) 02/24/19 14:20 Lymph # (Auto) 2000 /uL (3393-9970) 02/24/19 14:20 [place] # (Auto) 600 /uL (0-900) 02/24/19 14:20 Eos # (Auto) 100 /uL (0-450) 02/24/19 14:20 Baso # (Auto) 100 /uL (0-100) 02/24/19 14:20 Sodium 140 mmol/L (137-145) 02/24/19 14:20 Potassium 4.0 mmol/L (3.4-5.1) 02/24/19 14:20 Chloride 102 mmol/L (98-107) 02/24/19 14:20 Carbon Dioxide 28 mmol/L (22-32) 02/24/19 14:20 BUN 15 mg/dL (7-17) 02/24/19 14:20 Creatinine 0.60 mg/dL (0.52-1.04) 02/24/19 14:20 Estimated GFR > 60.0 mL/min (>60) 02/24/19 14:20 BUN/Creatinine Ratio 25.0 (6-22) H 02/24/19 14:20 Glucose 105 mg/dL (70-100) H 02/24/19 14:20 Calcium 10.1 mg/dL (8.4-10.2) 02/24/19 14:20 Magnesium 1.7 mg/dL (1.6-2.3) 01/20/19 12:15 Total Bilirubin 0.4 mg/dL (0.2-1.3) 02/24/19 14:20 AST 50 IU/L (14-36) H 02/24/19 14:20 ALT 69 IU/L (9-52) H 02/24/19 14:20 Alkaline Phosphatase 65 U/L (38-126) 02/24/19 14:20 Total Protein 7.6 g/dL (6.3-8.2) 02/24/19 14:20 Albumin 4.6 g/dL (3.5-5.0) 02/24/19 14:20 Globulin 3.0 g/dL (1.7-4.1) 02/24/19 14:20 Albumin/Globulin Ratio 1.5 (1.0-2.8) 02/24/19 14:20 CA 125 Antigen 10.9 U/mL (0-35) 05/26/20 11:57 Hum Epididymis Prot 4 79.5 pmol/L (0.0-96.5) 05/26/20 11:57 - Imaging Additional studies: Procedures Injection of antibiotic (07/31/12) Injection of steroid (07/31/12) Injection or infusion of other therapeutic or prophylactic substance (12/02/13) Other nonoperative respiratory measurements (07/31/12) Assessment and Plan (1) Lung cancer 60-year-old female, never smoker, with stage II ( T1 N1) adenocarcinoma of the right lung status post right lobectomy August 2018 followed by adjuvant Cisplatin and Alimta x 4 cycles completed February 2019. According to patient, she has not been followed by business operations specialist Dr. Blair at [facility]. Patient is seen Dr. Arellano for once every [address] of the chest without contrast. Patient currently has emphysema of unknown etiology as well as ?organizing pneumonia? according to patient. She is now on lifelong antibiotics use with azithromycin 1 pill 3 times a day. As far as the ovarian cysts are concerned, the tumor markers including CA 125 and HE4 are all normal. I talked with her that it is very unlikely she has ovarian cancer. She has already scheduled a oophorectomies by Dr. Palak Nuñez early next month. Plan: 1. Continue follow up with Dr. Blair 2. Laparotomies with oophorectomies as scheduled for 08/09/2020. 3. RTC in one year, CBC, CMP 4. Instructed the patient to call for any concerns or questions.
== END ==
PROVIDERS: Internal Medicine Hematology & Oncology; PCP Registered Nurse Diabetes Educator; Visit Provider Internal Medicine
DX: C34.31 Malignant neoplasm of lower lobe, right bronchus or lung (principal); N83.202 Unspecified ovarian cyst, left side
CPT/HCPCS: 36415; 36591; 36592; 71250; 78306; 80053; 83735; 85025; 86304; 86305; 96361; 96365; 96367; 96368; 96372; 96375; 96411; 96413; 96415; 96417; 99204; 99214; 99215; A9503; J1100; J1453; J2150; J2405; J3420; J3475; J3480; J9060; J9305

== ENCOUNTER 2020-08-06 22:50 | Emergency (ER) | payer OTHER, SELFPAY ==
[2019-03-19 16:15] VITALS: BMI 34.3
[2020-08-06 23:08] VITALS: BP 182/86; PULSE 96; RESP 26; TEMP 37; O2SAT 96; BMI 31.9
--- NOTE | 2020-08-06 23:08 | ED_ITS ---
HPI - Arrhythmia/Palpitations General Chief Complaint: Arrhythmia/Palpitations Stated Complaint: Irregular Heartrate Time Seen by Provider: 08/06/20 23:06 Source: patient and EMS Mode of arrival: EMS Limitations: no limitations History of Present Illness HPI narrative: This is a 60-year-old female comes emergency department with sensation of palpitations concern for irregular heartbeat. Patient states she just felt ?weird and a little jittery?. She denies any lightheadedness. She has sensation of some palpitations in her chest. She had a little bit while over in the room but milder than at home. No chest pain or pressure. No shortness of breath. No diaphoresis. No nausea, no vomiting. No issues with bowel movements or urination. No swelling in her extremities. Patient has a history of atrial flutter. She had an ablation in November of 2018. She states she has not had any recurrences that she is aware of. She has known COPD and is on azithromycin Saturday, Saturday and Saturday as prescribed by her tie worker. She is also scheduled to have a bilateral oophorectomy this coming Saturday for a large ovarian cyst. She states that they do not suspect to have malignant pathology but will be testing it. She has a history of adenocarcinoma of the right lower lobe that is T1 N1 stage II with surgical resection in August of 2018 and has completed chemotherapy as of February 2019. Patient states that she is off her aspirin currently in anticipation of her pelvic surgery this upcoming week. She is taking still taking her hydrochlorothiazide, her Zithromax in. And her inhalers. Patient states she was concerned she might be having another episode and because she has plan for surgery she felt she should probably get it checked out. Related Data Home Medications Medication Instructions Recorded Confirmed calcium carbonate [Calcium 500] 500 mg PO DAILY #0 05/24/11 07/21/20 cholecalciferol (vitamin D3) 5,000 unit PO DAILY #0 07/31/12 07/21/20 [Vitamin D3] Stiolto Respimat 2 puff INHALATION DAILY #0 06/23/17 07/21/20 albuterol sulfate 3 ml INH Q6HP PRN 10/23/18 07/21/20 loratadine 10 mg PO DAILY 11/03/18 07/21/20 aspirin 81 mg PO DAILY 02/24/19 07/21/20 azithromycin 250 mg tablet 250 mg PO DAILY 06/22/20 07/21/20 doxycycline hyclate 100 mg tablet 100 mg PO BID 06/22/20 07/21/20 epinephrine 0.3 mg/0.3 mL 0.3 mg IM ONCE 06/22/20 07/21/20 injection, auto-injector Previous Rx's Medication Instructions Recorded fluticasone propionate 220 2 puff INHALATION BID #36 g 06/22/20 mcg/actuation HFA aerosol inhaler epinephrine 0.3 mg/0.3 mL 0.3 mg IM ONCE #2 ea 07/06/20 injection, auto-injector hydrochlorothiazide 25 mg tablet 25 mg PO DAILY #90 tab 07/06/20 Allergies Allergy/AdvReac Type Severity Reaction Status Date / Time bee pollen [BEE POLLEN] Allergy Severe Anaphylaxis Verified 08/06/20 23:07 Sulfa (Sulfonamide Allergy Severe Anaphylaxis Verified 08/06/20 23:07 Antibiotics) Review of Systems Review of Systems ROS Unobtainable: All systems reviewed & are unremarkable except as noted in HPI and below Patient History Medical History Asthma Atrial flutter (~01/2019) Bronchiectasis Chemotherapy-induced neuropathy Chicken pox (~1967) COPD (chronic obstructive pulmonary disease) Cough Dyslipidemia Emphysema lung Far-sighted Fibroids (~1992) Frequent episodes of pneumonia GERD (gastroesophageal reflux disease) Heavy menstrual period (~1992) Hepatic steatosis Hyperglycemia Impaired fasting blood sugar Liver enzyme elevation Ovarian cyst (~2017) Pneumothorax (~2018) Port-A-Cath in place (11/06/18) Ringing of ears Shortness of breath Sinus drainage Vertigo (~2012) Surgical History Anesthesia H/O: hysterectomy (~1992) History of cardiac radiofrequency ablation (~2019) History of colonoscopy Hx of appendectomy Hx of tonsillectomy S/P bronchoscopy (04/06/16) S/P lobectomy of lung (08/06/18) Family History Father Cancer Mother No problems noted. Sister Lung transplant recipient Grandfather Cancer Family/Other COPD (chronic obstructive pulmonary disease) Family/Other COPD (chronic obstructive pulmonary disease) Social History household members: spouse Smoking Status: Never smoker alcohol intake: never Smoking Status: Never smoker alcohol intake frequency: 0-2 drinks per day Substance Use Type: does not use Exam Narrative Exam Narrative: GENERAL: Alert and oriented x three, well-nourished female in mild distress. HEENT: Head normocephalic, atraumatic, EOMI, pupils reactive, face symmetric, moist mucous membranes NECK: Supple, full range of motion CARDIOVASCULAR: Regular rate and rhythm without murmurs, rubs or gallops. RESPIRATORY: Breath sounds equal bilaterally, no wheezes rales or rhonchi. ABDOMEN: Soft, nontender. Normoactive bowel sounds all 4 quadrants. No guarding or rebound, rigidity, no mass : No CVA tenderness EXTREMITIES: Normal range of motion, no clubbing or edema. Neurovascularly intact NEUROLOGICAL: Cranial nerves II through XII grossly intact. Moving all extremities SKIN: Warm, dry, no petechiae, no rashes or lesions. Initial Vital Signs Initial Vital Signs: Vital Signs Temperature 98.6 F 08/06/20 23:08 Pulse Rate 96 H 08/06/20 23:08 Respiratory Rate 26 H 08/06/20 23:08 Blood Pressure 182/86 H 08/06/20 23:08 Pulse Oximetry 96 08/06/20 23:08 Course Orders Ordered: ED Orders 08/06/20 23:00 Complete Blood Count AUTO DIFF Stat Comprehensive Metabolic Panel Stat Lipase Stat Partial Thromboplastin Time Stat Prothrombin Time INR Stat Troponin & CK Cardiac Panel Stat 08/06/20 23:13 XR chest 1V Stat EKG-12 Lead Stat Discontinued Medications Potassium Chloride (Potassium Chloride 20 Meq/15 Ml Udc) 40 meq PO NOW ONE Stop: 08/06/20 23:33 Last Admin: 08/06/20 23:51 Dose: 40 meq Documented by: AGUSTIN Reevaluation(s) Time: 00:45 Vital Signs Vital signs: Vital Signs - 8 hr 08/06/20 23:08 Temperature 98.6 F Pulse Rate 96 H Respiratory Rate 26 H Blood Pressure 182/86 H Pulse Oximetry 96 MDM - Arrhythmia/Palpitations Lab Data Attestation: I reviewed the patient's lab results. Result diagrams: 08/06/20 23:00 08/06/20 23:00 Labs: Lab Results 08/06/20 08/06/20 08/06/20 Range/Units 23:00 23:00 23:00 WBC 7.0 (4.5-11.0) X10^3/uL RBC 4.28 (4.0-5.2) X10^6/uL Hgb 13.9 (12.0-16.0) g/dL Hct 41.1 (36-46) % MCV 96.0 (80-100) fL MCH 32.4 (26-34) PG MCHC 33.8 (30-36) % RDW 13.0 (11.6-14.8) % Plt Count 239 (150-400) X10^3/uL Neut % (Auto) 47.2 L (50-75) % Lymph % (Auto) 39.8 (25-40) % [place] % (Auto) 11.1 (3-14) % Eos % (Auto) 1.3 L (2-4) % Baso % (Auto) 0.6 (0-2) % Neut # (Auto) 3300 (4758-1773) /uL Lymph # (Auto) 2800 (3282-6689) /uL [place] # (Auto) 800 (0-900) /uL Eos # (Auto) 100 (0-450) /uL Baso # (Auto) 0 (0-100) /uL PT 10.0 L (10.1-12.7) SECONDS INR 0.9 (0.9-1.3) APTT 34 D (26.4-36.2) SECONDS Sodium 139 (137-145) mmol/L Potassium 3.3 L (3.4-5.1) mmol/L Chloride 100 (98-107) mmol/L Carbon Dioxide 33 H (22-32) mmol/L BUN 22 H (7-17) mg/dL Creatinine 0.69 (0.52-1.04) mg/dL Estimated GFR > 60.0 (>60) mL/min BUN/Creatinine Ratio 31.9 H (6-22) Glucose 126 H (80-110) mg/dL Calcium 9.9 (8.4-10.2) mg/dL Total Bilirubin 0.4 (0.2-1.3) mg/dL AST 43 H (14-36) IU/L ALT 55 H (<35) IU/L Alkaline Phosphatase 65 (38-126) U/L Total Creatine Kinase 94 (30-135) U/L CK-MB (CK-2) TNP CK-MB (CK-2) Rel Index TNP Troponin I < 0.012 (0.01-0.034) ng/mL Total Protein 8.0 (6.3-8.2) g/dL Albumin 4.8 (3.5-5.0) g/dL Globulin 3.2 (1.7-4.1) g/dL Albumin/Globulin Ratio 1.5 (1.0-2.8) Lipase 124 (23-300) U/L Imaging Data Chest x-ray: Radiologist's Impresson: Bibasilar atelectatic/fibrotic changes are noted. Hazy opacities adjacent to the inferior portions the right heart border and left heart border. This could represent pericardial fat in or atelectasis or infiltrate. CT chest can be considered for more accurate assessment. ECG Data Attestation: I personally reviewed and interpreted this ECG as follows: Prior ECG tracings: available for review Interpretation: Sinus rhythm rate of 92 P are 190 QRS of 92 and QTC of 467. Nonspecific T-wave changes. Patient has prior EKG from 08/30/2019 which appears similar. [facility] Narrative Medical decision making narrative: 60-year-old female comes in with complaint of palpitations. She states she had some irregular beats at home that she can appreciate. And were captured by EMS or ourselves in the department. Patient's potassium is slightly low this could make her more likely to have some palpitations and potentially atrial flutter. She has had a prior ablation. No other major lab abnormalities that are concerning at this time. There is some hazy opacity of the left heart border and right horn ordered but patient has had chronic organizing pneumonia and is on azithromycin 3 times a week with no acute worsening. I would have patient follow-up with her tie worker. Discharge Plan Departure Patient Disposition: Home Clinical Impression: Palpitation, Hypokalemia Instructions: DI for Palpitations Activity Restrictions/Additional Instructions: Follow up with your physician this week for recheck. Your potassium level was very slightly low, this may have been causing the sensation of palpitations we may have been having some extra beats that your feeling. The rest of your labs with her liver enzymes very mildly elevated which appears chronic. Return to the ER for fevers, recurrent palpitations, lightheadedness or passing out, new chest pain, shortness of breath, persistent vomiting, new swelling in her extremities or other new or concerning symptoms. Prescriptions: No Action calcium carbonate [Calcium 500] 500 mg calcium (1,250 mg) Tablet 500 mg PO DAILY Qty: 0 RF: 0 cholecalciferol (vitamin D3) [Vitamin D3] 5,000 unit Tablet 5,000 unit PO DAILY Qty: 0 RF: 0 Stiolto Respimat 2.5-2.5 mcg/actuation Mist 2 puff INHALATION DAILY Qty: 0 RF: 0 azithromycin [Zithromax] 250 mg tablet 250 mg PO DAILY RF: 0 epinephrine 0.3 mg/0.3 mL auto-injector 0.3 mg IM ONCE RF: 0 doxycycline hyclate 100 mg tablet 100 mg PO BID RF: 0 Flovent HFA 220 mcg/actuation HFA aerosol inhaler 2 puff INHALATION BID Qty: 36 RF: 3 hydrochlorothiazide 25 mg tablet 25 mg PO DAILY Qty: 90 RF: 3 epinephrine [EpiPen 2-Fidel] 0.3 mg/0.3 mL auto-injector 0.3 mg IM ONCE Qty: 2 RF: 0 albuterol sulfate 2.5 MG/3 ML solution for nebulization 3 ml INH Q6HP PRN (Reason: COPD, shortness of breath) RF: 0 loratadine 10 mg Capsule 10 mg PO DAILY RF: 0 aspirin 81 mg Tablet,Delayed Release (Dr/Ec) 81 mg PO DAILY RF: 0 Referrals: Santi Huerta ARNP [Primary Care Provider] -
--- NOTE | 2020-08-06 23:13 | DI.RAD.S_ITS ---
PROCEDURE: XR CHEST 1V INDICATIONS: chest pain TECHNIQUE: One view of the chest was acquired. COMPARISON: [facility], CT, CT CHEST WO CON, 05/26/2020, 11:02. [facility], CR, XR CHEST 2V, 08/30/2019, 7:32. FINDINGS: Surgical changes and devices: None. Lungs and pleura: Distorted pulmonary architecture from emphysematous change, right greater than left. Right basilar scarring. No acute pulmonary infiltrates. No pleural effusions or pneumothorax. Mediastinum: Mediastinal contours appear normal. Heart size is normal. Bones and chest wall: No suspicious bony lesions. Overlying soft tissues appear unremarkable. IMPRESSION: 1. Emphysematous change. 2. No evidence acute pulmonary process. Comment: Preliminary interpretation provided by [facility]. Dictated by: Laith Hough M.D. on 08/07/2020 at 5:49 Approved by: Laith Hough M.D. on 08/07/2020 at 5:51
[2020-08-06 23:20] LABS: INR 0.9 (0.9-1.3)
[2020-08-06 23:22] LABS: Add Manual Diff / Slide Review NO; Basophils Absolute Auto 0 /uL (0-100); Basophils Percent Auto 0.6 % (0-2); Eosinophils Absolute Auto 100 /uL (0-450); Eosinophils Percent Auto 1.3 % (2-4); Hematocrit 41.1 % (36-46); Hemoglobin 13.9 g/dL (12.0-16.0); Lymphocytes Absolute Auto 2800 /uL (1100-4500); Lymphocytes Percent Auto 39.8 % (25-40); Mean Corpuscular HGB Conc 33.8 % (30-36); Mean Corpuscular Hemoglobin 32.4 PG (26-34); Monocytes Absolute Auto 800 /uL (0-900); Monocytes Percent Auto 11.1 % (3-14); Neutrophils Absolute Auto 3300 /uL (1500-7000); Neutrophils Percent Auto 47.2 % (50-75); PTT Partial Thromboplastin Tim 34 SECONDS (26.4-36.2); Platelet Count 239 X10^3/uL (150-400); Red Blood Cell Count 4.28 X10^6/uL (4.0-5.2)
[2020-08-06 23:24] LABS: Alanine Aminotransferase 55 IU/L (<35); Albumin 4.8 g/dL (3.5-5.0); Albumin Globulin Ratio 1.5 (1.0-2.8); Alkaline Phosphatase 65 U/L (38-126); Aspartate Aminotransferase 43 IU/L (14-36); BUN Creatinine Ratio 31.9 (6-22); Bilirubin Total 0.4 mg/dL (0.2-1.3); Blood Urea Nitrogen 22 mg/dL (7-17); Calcium 9.9 mg/dL (8.4-10.2); Carbon Dioxide 33 mmol/L (22-32); Chloride 100 mmol/L (98-107); Creatine Kinase 94 U/L (30-135); Estimated Glomerular Filt Rate > 60.0 mL/min (>60); Globulin 3.2 g/dL (1.7-4.1); Glucose 126 mg/dL (80-110); HEMOLYSIS 34 (0-50); Lipase 124 U/L (23-300); Potassium 3.3 mmol/L (3.4-5.1); Sodium 139 mmol/L (137-145)
[2020-08-06 23:36] LABS: Troponin I < 0.012 ng/mL (0.01-0.034)
[2020-08-06] MEDS: POTASSIUM CHLORIDE 20 MEQ/15 ML UDC 40 MEQ PO (23:51)
== END 2020-08-07 03:05 | disposition home or self-care (01) ==
PROVIDERS: Emergency Provider Emergency Medicine; PCP Registered Nurse Diabetes Educator
DX: R00.2 Palpitations (principal); E87.6 Hypokalemia
CPT/HCPCS: 71045; 80053; 82550; 83690; 84484; 85025; 85610; 85730; 93005; 99283; 99284

== ENCOUNTER → 2020-11-10 14:58 | Outpatient (CLI) | payer OTHER, SELFPAY ==
[2019-03-19 16:15] VITALS: BMI 34.3
[2020-11-11 08:11] LABS: Alpha 1 Anti Trypsin 122 mg/dL (101-187)
[2020-11-12 14:07] LABS: ANA Screen, IFA Negative (.)
[2020-11-12 16:58] LABS: Anti Mitochondrial ABY IGG <20.0 Units (0.0-20.0); Smooth Muscle Antibody 3 Units (0-19)
== END ==
PROVIDERS: PCP Registered Nurse Diabetes Educator; Referring Provider Nurse Practitioner; Visit Provider Nurse Practitioner
DX: R79.89 Other specified abnormal findings of blood chemistry (principal)
CPT/HCPCS: 36415; 82103; 83516; 86038

== ENCOUNTER → 2020-11-22 16:16 | Outpatient (CLI) | payer OTHER, SELFPAY ==
[2019-03-19 16:15] VITALS: BMI 34.3
--- NOTE | 2020-11-22 16:17 | DI.RAD.S_ITS ---
PROCEDURE: XR HIP W PEL IF DONE LT 2V INDICATIONS: eval intermittent L hip pain x 6 weeks, no recent injury TECHNIQUE: AP pelvis with lateral view(s) of the left hip(s). COMPARISON: None. FINDINGS: Bones: No fractures or dislocations. Pelvic ring appears intact. No suspicious bony lesions. Mild bilateral acetabular joint space narrowing. Soft tissues: The visualized bowel gas pattern is normal. No suspicious soft tissue calcifications. IMPRESSION: Mild bilateral acetabular joint space narrowing. No fracture or lytic lesion. Dictated by: Amandeep De La O M.D. on 11/22/2020 at 17:50 Approved by: Amandeep De La O M.D. on 11/22/2020 at 17:50
== END ==
PROVIDERS: PCP Registered Nurse Diabetes Educator; Referring Provider Registered Nurse Diabetes Educator; Visit Provider Registered Nurse Diabetes Educator
DX: M25.552 Pain in left hip (principal)
CPT/HCPCS: 73502

== ENCOUNTER → 2020-12-08 15:23 | Outpatient (CLI) | payer OTHER, SELFPAY ==
[2019-03-19 16:15] VITALS: BMI 34.3
--- NOTE | 2020-12-08 | DI.CT.S_ITS ---
PROCEDURE: CT CHEST WO CON INDICATIONS: RIGHT LUNG CANCER TECHNIQUE: Noncontrast 5 mm thick sections acquired from the pulmonary apices to the posterior costophrenic angles. 1 mm lung window, 5 mm thick coronal and sagittal and 7 mm axial MIP reformats were then acquired. For radiation dose reduction, the following was used: automated exposure control, adjustment of mA and/or kV according to patient size. COMPARISON: [facility], CT, CT CHEST WO CON, 05/26/2020, 11:02. [facility], CT, CT CHEST WO CON, 03/01/2020, 12:25. FINDINGS: Image quality: Excellent. Lungs and pleura: Postsurgical changes are again seen from right upper lobectomy. Expansion and severe emphysematous changes of the right middle and lower lobes does not appear significantly changed. Emphysematous changes are also again noted in the left lung base. There is bronchiectasis predominantly involving the lower lobes bilaterally that does not appear significantly changed. Mild tree-in-bud nodularity in the anterior left upper lobe and the posterior left lower lobe has increased when compared to the CT from 05/26/2020, and is likely infectious or inflammatory in etiology. No pleural effusion or pneumothorax. Mediastinum: Heart size is normal. No pericardial effusion. No mediastinal adenopathy by size criteria. Thoracic aorta and central pulmonary arteries are normal in size. Esophagus is normal in caliber. Small hiatal hernia. Bones and chest wall: No suspicious bony lesions. No vertebral body compression fractures. No axillary or supraclavicular adenopathy by size criteria. Thyroid appears normal. Abdomen: There is fatty infiltration of the liver that predominantly involves the right lobe. The adrenals appear normal. A few diverticula are seen in the included colon. Visualized upper abdominal solid organs and bowel loops otherwise appear normal in the absence of contrast. IMPRESSION: 1. Stable postsurgical changes from right upper lobectomy. Stable emphysematous changes and bronchiectasis are redemonstrated. 2. Scattered tree-in-bud nodularity in the left upper and lower lobes is suspicious for an infectious or inflammatory process. 3. No suspicious thoracic lymphadenopathy or signs of metastatic disease. 4. Small hiatal hernia. Fatty infiltration of the liver. Dictated by: Kiko Mcintosh M.D. on 12/08/2020 at 16:41 Approved by: Kiko Mcintosh M.D. on 12/08/2020 at 16:51
== END ==
PROVIDERS: PCP Registered Nurse Diabetes Educator; Referring Provider Internal Medicine Critical Care Medicine; Visit Provider Internal Medicine Critical Care Medicine
DX: C34.11 Malignant neoplasm of upper lobe, right bronchus or lung (principal); K76.0 Fatty (change of) liver, not elsewhere classified; K44.9 Diaphragmatic hernia without obstruction or gangrene
CPT/HCPCS: 71250

== ENCOUNTER → 2021-02-10 09:30 | Outpatient (CLI) | payer OTHER, SELFPAY ==
[2019-03-19 16:15] VITALS: BMI 34.3
[2021-02-10 11:45] LABS: Hemoglobin A1C% w Est Avg Glu 6.1 % (4.0-6.0)
[2021-02-10 13:01] LABS: Alanine Aminotransferase 45 IU/L (<35); Albumin 4.4 g/dL (3.5-5.0); Albumin Globulin Ratio 1.6 (1.0-2.8); Alkaline Phosphatase 65 U/L (38-126); Aspartate Aminotransferase 38 IU/L (14-36); BUN Creatinine Ratio 35.2 (6-22); Bilirubin Total 0.5 mg/dL (0.2-1.3); Blood Urea Nitrogen 19 mg/dL (7-17); Calcium 9.8 mg/dL (8.4-10.2); Carbon Dioxide 29 mmol/L (22-32); Chloride 104 mmol/L (98-107); Cholesterol 271 mg/dL (140-199); Estimated Glomerular Filt Rate > 60.0 mL/min (>60); Globulin 2.7 g/dL (1.7-4.1); Glucose 98 mg/dL (80-110); HDL Cholesterol 70 mg/dL (40-60); HEMOLYSIS < 15 (0-50); LDL Cholesterol Calculated 172 mg/dL (<100); Potassium 4.2 mmol/L (3.4-5.1); Sodium 140 mmol/L (137-145); Total Protein 7.1 g/dL (6.3-8.2); Triglycerides 144 mg/dL (35-150)
== END ==
PROVIDERS: PCP Registered Nurse Diabetes Educator; Referring Provider Registered Nurse Diabetes Educator; Visit Provider Registered Nurse Diabetes Educator
DX: R73.01 Impaired fasting glucose (principal); E78.5 Hyperlipidemia, unspecified; K76.0 Fatty (change of) liver, not elsewhere classified; R74.8 Abnormal levels of other serum enzymes
CPT/HCPCS: 36415; 80053; 80061; 83036

== ENCOUNTER 2021-05-08 08:30 | Outpatient (RCR) | payer OTHER, SELFPAY ==
[2019-03-19 16:15] VITALS: BMI 34.3
== END 2021-06-07 10:30 ==
LOC: PUL 08:30
PROVIDERS: PCP Registered Nurse Diabetes Educator; Referring Provider Internal Medicine Critical Care Medicine; Visit Provider Internal Medicine Critical Care Medicine
DX: J44.9 Chronic obstructive pulmonary disease, unspecified (principal)
CPT/HCPCS: G0424

== ENCOUNTER → 2021-05-22 10:47 | Outpatient (CLI) | payer OTHER, SELFPAY ==
[2021-03-28 14:00] VITALS: BMI 34.3
[2021-05-22 11:36] LABS: COVID19 -Nasal RAPID Negative (Negative)
== END ==
PROVIDERS: PCP Registered Nurse Diabetes Educator; Visit Provider Surgery
DX: Z01.812 Encounter for preprocedural laboratory examination (principal); Z20.822 Contact with and (suspected) exposure to COVID-19
CPT/HCPCS: 87635; C9803

== ENCOUNTER 2021-05-23 10:39 | Day surgery (SDC) | payer OTHER, SELFPAY ==
[2021-03-28 14:00] VITALS: BMI 34.3
[2021-05-23 11:59] VITALS: BMI 31.9
[2021-05-23] MEDS: LACTATED RINGERS 1,000 ML 200 ML IV (12:26)
[2021-05-23 12:27] VITALS: BP 141/82; PULSE 85; RESP 14; TEMP 37.5; O2SAT 96
--- NOTE | 2021-05-23 12:51 | PM.PREOP ---
Pre-operative Note Interval Note History & Physical reviewed/Exam performed by Physician: Yes Changes to H&P: No
--- NOTE | 2021-05-23 13:06 | SUR.OPER ---
Patients cell phone and glasses placed in hospital provided belongings bag with patient label.
--- NOTE | 2021-05-23 13:26 | PM.OP.COLON ---
Operative Date/Time/Diagnoses Date of procedure: 05/23/21 Time of procedure: 13:27 Pre-op diagnosis: personal history of colonic polyps Post-op diagnosis: other (normal colonoscopy) Procedure & Clinicians Study performed: colonoscopy Same procedure as scheduled: Yes Indications: personal history of colonic polyps Surgeon: Raul Hyatt Procedure Notes Procedure in detail: The history and physical was performed/updated and the patient is ASA class is 3. The procedure was discussed in detail with the patient. Potential risks complications including infection, bleeding, missed diagnosis, perforation, need for surgery, and were explained. Their questions were answered and informed consent was obtained. Patient was brought to the procedure room and placed standard monitoring equipment. The patient's vital signs were monitored continuously throughout the entire procedure. Prior to starting time-out was performed. The patient was placed in the left lateral recumbent position. Procedural sedation was administered by anesthesia. Examination began with a thorough inspection of the perianal area there was no evidence of fissures, fistulae, external hemorrhoids or cutaneous malignancy. The colonoscopy scope was then placed into the anal canal and was advanced to the cecum, which was identified by the ileocecal valve, the appendiceal orifice and the confluence of the taenia. The scope was then slowly withdrawn examining colon thoroughly in all directions, irrigating it of any residual stool. FINDINGS 1. No masses or polyps 2. Campbell diverticulosis The patient tolerated the procedure well. They will be discharged once criteria are met. The prep was of good/excellent quality. The withdrawl time was 5 minutes. Specimen(s): none sent Complications: none Impression: diverticulosis Post-procedure Recommendations: Colonoscopy in 10 years and High fiber diet Disposition: same day surgery
[2021-05-23 13:27] VITALS: BP 140/79; PULSE 89; RESP 12; TEMP 36.5; O2SAT 98
[2021-05-23 13:37] VITALS: BP 156/84; PULSE 86; RESP 20; O2SAT 97
[2021-05-23 13:46] VITALS: BP 157/88; PULSE 74; RESP 16; O2SAT 98
== END 2021-05-23 13:47 | disposition home or self-care (01) ==
PROVIDERS: PCP Registered Nurse Diabetes Educator; Referring Provider Surgery; Visit Provider Surgery
PROC: 0DJD8ZZ Inspection of Lower Intestinal Tract, Via Natural or Artificial Opening Endoscopic (ICD-10-PCS; CPT 45378; principal; 2021-05-23 13:15)
DX: Z12.11 Encounter for screening for malignant neoplasm of colon (principal); Z86.010 Personal history of colon polyps; J44.9 Chronic obstructive pulmonary disease, unspecified; Z99.81 Dependence on supplemental oxygen; K57.30 Diverticulosis of large intestine without perforation or abscess without bleeding
CPT/HCPCS: 45378; J2250; J2704; J3010

== ENCOUNTER → 2021-06-05 13:53 | Outpatient (CLI) | payer OTHER, SELFPAY ==
[2021-03-28 14:00] VITALS: BMI 34.3
--- NOTE | 2021-06-05 13:59 | DI.CT.S_ITS ---
PROCEDURE: CT CHEST WO CON INDICATIONS: FOLLOW UP LUNG CANCER TECHNIQUE: Noncontrast 5 mm thick sections acquired from the pulmonary apices to the posterior costophrenic angles. 1 mm lung window, 5 mm thick coronal and sagittal and 7 mm axial MIP reformats were then acquired. For radiation dose reduction, the following was used: automated exposure control, adjustment of mA and/or kV according to patient size. COMPARISON: [facility], CT, CT CHEST WO [facility], 12/08/2020, 15:29. FINDINGS: Image quality: Excellent. Lungs and pleura: No consolidation, pleural effusions or pneumothorax. Redemonstrated bronchiectasis. Redemonstrated suture material within the for 8 upper lobe. Persistent bilateral tree-in-bud nodularity, which may reflect a post infectious or inflammatory process. Centrilobular emphysematous changes. No suspicious pulmonary nodule /mass or significant interval change. Mediastinum: Heart size is normal. No pericardial effusion. No mediastinal adenopathy by size criteria. Thoracic aorta and central pulmonary arteries are normal in size. Esophagus is normal in caliber. Small hiatal hernia. Bones and chest wall: No suspicious bony lesions. No vertebral body compression fractures. No axillary or supraclavicular adenopathy by size criteria. Thyroid gland demonstrates homogeneous attenuation. Abdomen: Hepatic steatosis. Colonic diverticulosis. IMPRESSION: 1. No significant interval change. Specifically, no suspicious pulmonary mass or nodule. 2. Redemonstrated bilateral tree-in-bud nodularity as well as bronchiectasis, which may reflect a post infectious or inflammatory process. Dictated by: Miguel Holcomb M.D. on 06/05/2021 at 14:17 Approved by: Miguel Holcomb M.D. on 06/05/2021 at 14:26
== END ==
PROVIDERS: PCP Registered Nurse Diabetes Educator; Referring Provider Internal Medicine Critical Care Medicine; Visit Provider Internal Medicine Critical Care Medicine
DX: C34.11 Malignant neoplasm of upper lobe, right bronchus or lung (principal); K44.9 Diaphragmatic hernia without obstruction or gangrene; K76.0 Fatty (change of) liver, not elsewhere classified; K57.90 Diverticulosis of intestine, part unspecified, without perforation or abscess without bleeding; J47.9 Bronchiectasis, uncomplicated
CPT/HCPCS: 71250

== ENCOUNTER → 2021-07-19 12:27 | Outpatient (CLI) | payer OTHER, SELFPAY ==
[2021-03-28 14:00] VITALS: BMI 34.3
--- NOTE | 2021-07-19 | DI.MG.S_ITS ---
BILATERAL DIGITAL SCREENING MAMMOGRAM 3D/2D WITH CAD: 07/19/2021 CLINICAL: Routine screening. Comparison is made to exams dated: 07/04/2020 mammogram, 06/30/2019 mammogram - [facility], and 04/28/2018 mammogram - [facility]. There are scattered fibroglandular elements in both breasts. Current study was also evaluated with a Computer Aided Detection (CAD) system. No significant masses, calcifications, or other findings are seen in either breast. There has been no significant interval change. IMPRESSION: NEGATIVE There is no mammographic evidence of malignancy. A 1 year screening mammogram is recommended. This exam was interpreted at Station ID: [id number]. NOTE: For mammograms, a report in lay terms will be sent to the patient. Approximately 15% of breast malignancies will not be visualized mammographically. In the management of a palpable breast mass, a negative mammogram must not discourage biopsy of a clinically suspicious lesion. Electronically Signed By: Suzanna quach/connie:07/19/2021 13:39:52 letter sent: Normal Exam ACR BI-RADS Category 1: Negative 3341F
== END ==
PROVIDERS: PCP Registered Nurse Diabetes Educator; Referring Provider Registered Nurse Diabetes Educator; Visit Provider Registered Nurse Diabetes Educator
DX: Z12.31 Encounter for screening mammogram for malignant neoplasm of breast (principal)
CPT/HCPCS: 77063; 77067

== ENCOUNTER → 2021-08-15 14:53 | Outpatient (CLI) | payer OTHER, SELFPAY ==
[2021-03-28 14:00] VITALS: BMI 34.3
[2021-08-15 15:05] LABS: Add Manual Diff / Slide Review NO; Basophils Absolute Auto 0 /uL (0-100); Basophils Percent Auto 0.7 % (0-2); Eosinophils Absolute Auto 0 /uL (0-450); Eosinophils Percent Auto 0.8 % (2-4); Hematocrit 39.7 % (36-46); Hemoglobin 13.5 g/dL (12.0-16.0); Lymphocytes Absolute Auto 1800 /uL (1100-4500); Lymphocytes Percent Auto 32.1 % (25-40); Mean Corpuscular HGB Conc 34.1 % (30-36); Mean Corpuscular Hemoglobin 32.6 PG (26-34); Mean Corpuscular Volume 95.7 fL (80-100); Monocytes Absolute Auto 500 /uL (0-900); Monocytes Percent Auto 9.6 % (3-14); Neutrophils Absolute Auto 3200 /uL (1500-7000); Neutrophils Percent Auto 56.8 % (50-75); Platelet Count 232 X10^3/uL (150-400); Red Blood Cell Count 4.15 X10^6/uL (4.0-5.2); Red Cell Distribution Width 13.5 % (11.6-14.8); White Blood Cell Count 5.7 X10^3/uL (4.5-11.0)
[2021-08-15 15:23] LABS: Alanine Aminotransferase 47 IU/L (<35); Albumin 4.7 g/dL (3.5-5.0); Albumin Globulin Ratio 1.6 (1.0-2.8); Alkaline Phosphatase 56 U/L (38-126); Aspartate Aminotransferase 41 IU/L (14-36); BUN Creatinine Ratio 26.8 (6-22); Bilirubin Total 0.3 mg/dL (0.2-1.3); Blood Urea Nitrogen 19 mg/dL (7-17); Calcium 9.7 mg/dL (8.4-10.2); Carbon Dioxide 32 mmol/L (22-32); Chloride 100 mmol/L (98-107); Estimated Glomerular Filt Rate > 60.0 mL/min (>60); Glucose 146 mg/dL (80-110); HEMOLYSIS 15 (0-50); Sodium 140 mmol/L (137-145); Total Protein 7.7 g/dL (6.3-8.2)
== END ==
PROVIDERS: Internal Medicine Hematology & Oncology; PCP Registered Nurse Diabetes Educator; Referring Provider Registered Nurse Diabetes Educator; Visit Provider Registered Nurse Diabetes Educator
DX: C34.90 Malignant neoplasm of unspecified part of unspecified bronchus or lung (principal)
CPT/HCPCS: 36415; 80053; 85025

== ENCOUNTER 2021-09-21 08:30 | Outpatient (RCR) | payer OTHER, SELFPAY ==
[2021-03-28 14:00] VITALS: BMI 34.3
== END 2021-09-21 12:30 ==
LOC: PUL 08:30
PROVIDERS: PCP Registered Nurse Diabetes Educator; Referring Provider Internal Medicine Critical Care Medicine; Visit Provider Internal Medicine Critical Care Medicine
DX: J43.8 Other emphysema (principal)
CPT/HCPCS: G0237; G0238

== ENCOUNTER → 2021-11-07 13:12 | Outpatient (CLI) | payer OTHER, SELFPAY ==
[2021-03-28 14:00] VITALS: BMI 34.3
--- NOTE | 2021-11-07 13:14 | DI.CT.S_ITS ---
PROCEDURE: CT CHEST WO CON INDICATIONS: Malignant neoplasm right lung TECHNIQUE: Noncontrast 5 mm thick sections acquired from the pulmonary apices to the posterior costophrenic angles. 1 mm lung window, 5 mm thick coronal and sagittal and 7 mm axial MIP reformats were then acquired. For radiation dose reduction, the following was used: automated exposure control, adjustment of mA and/or kV according to patient size. COMPARISON: [facility], CT, CT CHEST WO CON, 12/08/2020, 15:29. [facility], CT, CT CHEST WO CON, 06/05/2021, 14:05. FINDINGS: Image quality: Excellent. Lungs and pleura: There is severe emphysematous change at the right apex. Extensive bronchiectatic airways are redemonstrated within the upper lobes bilaterally. Scattered tree-in-bud pulmonary radiopacities are present throughout the left upper lobe, similar in extent to the study dated June 05, 2021. Severe emphysematous changes are redemonstrated within the bilateral lung bases. Focal bronchiectatic airways are also present as before. Tree-in-bud pulmonary radiopacities are redemonstrated within the superior segment of the left lower lobe. A 1.1 cm region of focal airspace opacities are present at the low left apex which are new when compared with the prior CT dated June 05, 2021. There is a new 5 mm pulmonary nodule within the left upper lobe (series 3/image 109). Mediastinum: Heart size is normal. No pericardial effusion. No mediastinal adenopathy by size criteria. Thoracic aorta and central pulmonary arteries are normal in size. Esophagus is normal in caliber. No hiatal hernia. Bones and chest wall: No suspicious bony lesions. No vertebral body compression fractures. No axillary or supraclavicular adenopathy by size criteria. Thyroid gland is unremarkable . Abdomen: Visualized upper abdominal solid organs and bowel loops appear normal in the absence of contrast. IMPRESSION: 1. New, trace airspace opacities within the left apex suggesting aspiration or infection. However, 3-6 month follow-up recommended to ensure stability or resolution of this finding and exclude metastasis. 2. New 5 mm left upper lobe pulmonary nodule. Follow-up recommended. 3. Unchanged multifocal emphysematous changes, bronchiectasis, and tree-in-bud pulmonary radiopacities when compared with the CT dated June 05, 2021. Dictated by: Karley Jaimes M.D. on 11/07/2021 at 15:41 Approved by: Karley Jaimes M.D. on 11/07/2021 at 15:49
== END ==
PROVIDERS: PCP Registered Nurse Diabetes Educator; Referring Provider Internal Medicine Critical Care Medicine; Visit Provider Internal Medicine Critical Care Medicine
DX: C34.91 Malignant neoplasm of unspecified part of right bronchus or lung (principal); R91.1 Solitary pulmonary nodule
CPT/HCPCS: 71250

== ENCOUNTER → 2022-02-02 07:47 | Outpatient (CLI) | payer OTHER, SELFPAY ==
[2021-03-28 14:00] VITALS: BMI 34.3
[2022-02-02 10:35] LABS: Hematocrit 40.1 % (36-46); Hemoglobin 13.3 g/dL (12.0-16.0); Mean Corpuscular HGB Conc 33.2 % (30-36); Mean Corpuscular Hemoglobin 31.5 PG (26-34); Platelet Count 266 X10^3/uL (150-400); Red Blood Cell Count 4.22 X10^6/uL (4.0-5.2); Red Cell Distribution Width 13.1 % (11.6-14.8); White Blood Cell Count 6.8 X10^3/uL (4.5-11.0)
[2022-02-02 10:37] LABS: Hemoglobin A1C% w Est Avg Glu 6.3 % (4.0-6.0)
[2022-02-02 11:15] LABS: Alanine Aminotransferase 41 IU/L (<35); Albumin 3.9 g/dL (3.5-5.0); Albumin Globulin Ratio 1.4 (1.0-2.8); Alkaline Phosphatase 62 U/L (38-126); Aspartate Aminotransferase 31 IU/L (14-36); BUN Creatinine Ratio 25.8 (6-22); Bilirubin Total 0.4 mg/dL (0.2-1.3); Blood Urea Nitrogen 17 mg/dL (7-17); Calcium 9.5 mg/dL (8.4-10.2); Carbon Dioxide 33 mmol/L (22-32); Chloride 100 mmol/L (98-107); Cholesterol 242 mg/dL (140-199); Estimated Glomerular Filt Rate > 60 mL/min (>60); Globulin 2.8 g/dL (1.7-4.1); Glucose 103 mg/dL (80-110); HDL Cholesterol 58 mg/dL (40-60); HEMOLYSIS < 15 (0-50); LDL Cholesterol Calculated 153 mg/dL (<100); Potassium 4.3 mmol/L (3.4-5.1); Sodium 138 mmol/L (137-145); Total Protein 6.7 g/dL (6.3-8.2); Triglycerides 153 mg/dL (35-150)
[2022-02-02 11:37] LABS: TSH w/ Reflex to FT4 1.23 uIU/mL (0.47-4.68)
== END ==
PROVIDERS: PCP Registered Nurse Diabetes Educator; Referring Provider Registered Nurse Diabetes Educator; Visit Provider Registered Nurse Diabetes Educator
DX: E78.5 Hyperlipidemia, unspecified (principal); I10 Essential (primary) hypertension; R73.01 Impaired fasting glucose; R74.8 Abnormal levels of other serum enzymes
CPT/HCPCS: 36415; 80053; 80061; 83036; 84443; 85027

== ENCOUNTER → 2022-02-09 08:57 | Outpatient (CLI) | payer OTHER, SELFPAY ==
[2021-03-28 14:00] VITALS: BMI 34.3
--- NOTE | 2022-02-09 08:58 | DI.RAD.S_ITS ---
PROCEDURE: XR HIP W PEL IF DONE LT 2V INDICATIONS: eval L hip/pelvic pain TECHNIQUE: AP and frogleg lateral views of the hip were acquired. COMPARISON: [facility], CR, XR HIP W PEL IF DONE LT 2V, 11/22/2020, 16:15. FINDINGS: Bones: No acute fractures or dislocations. No suspicious bony lesions. The visualized pelvic ring appears intact. There mild degenerative changes of the bilateral hips more pronounced on the left. Mild subchondral sclerosis involving the acetabular side of the joint. Soft tissues: No suspicious soft tissue calcifications or masses. IMPRESSION: Left hip without acute fracture or dislocation. Bilateral hip degenerative changes more pronounced on the left. Dictated by: Mateo Borjas M.D. on 02/09/2022 at 11:31 Approved by: Mateo Borjas M.D. on 02/09/2022 at 11:33
== END ==
PROVIDERS: PCP Registered Nurse Diabetes Educator; Referring Provider Registered Nurse Diabetes Educator; Visit Provider Registered Nurse Diabetes Educator
DX: M25.552 Pain in left hip (principal)
CPT/HCPCS: 73502

== ENCOUNTER → 2022-05-04 09:37 | Outpatient (CLI) | payer OTHER, SELFPAY ==
[2021-03-28 14:00] VITALS: BMI 34.3
[2022-05-04 11:40] LABS: Influenza A - CEPHEID Flu A NEGATIVE (NEGATIVE); Influenza B - CEPHEID Flu B NEGATIVE (NEGATIVE); Respiratory Syncytial Virus Negative (Negative)
[2022-05-04 12:15] LABS: COVID-19 CEPHEID 4-PLEX PCR POSITIVE (Negative)
== END ==
PROVIDERS: PCP Registered Nurse Diabetes Educator; Visit Provider Nurse Practitioner Family
DX: R05.9 Cough, unspecified (principal)
CPT/HCPCS: 0241U

== ENCOUNTER → 2022-06-06 12:03 | Outpatient (CLI) | payer OTHER, SELFPAY ==
[2021-03-28 14:00] VITALS: BMI 34.3
--- NOTE | 2022-06-06 | DI.CT.S_ITS ---
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 1 mm lung window, 5 mm thick coronal and sagittal and 7 mm axial MIP reformats were then acquired. For radiation dose reduction, the following was used: automated exposure control, adjustment of mA and/or kV according to patient size. COMPARISON: [facility], CT, CT CHEST WO CON, 06/05/2021, 14:05. [facility], CT, CT CHEST WO CON, 11/07/2021, 13:18. FINDINGS: Image quality: Excellent. Lungs and pleura: Emphysematous change. Mild bronchiectasis. Mild distal mucus airway plugging. There are scattered areas of bronchial wall thickening. Trace secretions in the right mainstem bronchus. Scattered areas of Tree-in-bud nodular opacity are decreased. No mass identified. Right upper lobe lobectomy. Mediastinum: Heart size is normal. No pericardial effusion. No mediastinal adenopathy by size criteria. Thoracic aorta and central pulmonary arteries are normal in size. Esophagus is normal in caliber. Tiny hiatal hernia. Bones and chest wall: No suspicious bony lesions. No vertebral body compression fractures. No axillary or supraclavicular adenopathy by size criteria. Thyroid gland is unremarkable. Abdomen: Visualized upper abdominal solid organs and bowel loops appear normal in the absence of contrast. Hepatic steatosis. IMPRESSION: 1. No mass. No adenopathy. Right upper lobe lobectomy. 2. Emphysematous change. Bronchiectasis. Distal mucus airway plugging. Findings are similar. 3. Scattered areas of tree-in-bud nodular opacity most consistent with bronchitis, slightly improved. Dictated by: Tank Pineda M.D. on 06/06/2022 at 17:19 Approved by: Tank Pineda M.D. on 06/06/2022 at 17:28
== END ==
PROVIDERS: PCP Registered Nurse Diabetes Educator; Referring Provider Internal Medicine Critical Care Medicine; Visit Provider Internal Medicine Critical Care Medicine
DX: C34.91 Malignant neoplasm of unspecified part of right bronchus or lung (principal); J47.9 Bronchiectasis, uncomplicated; K76.0 Fatty (change of) liver, not elsewhere classified
CPT/HCPCS: 71250

== ENCOUNTER → 2022-07-23 07:38 | Outpatient (CLI) | payer OTHER, SELFPAY ==
[2021-03-28 14:00] VITALS: BMI 34.3
--- NOTE | 2022-07-23 | DI.MG.S_ITS ---
BILATERAL DIGITAL SCREENING MAMMOGRAM 3D/2D WITH CAD: 07/23/2022 CLINICAL: Routine screening. Comparison is made to exams dated: 07/19/2021 mammogram, 07/04/2020 mammogram, and 06/30/2019 mammogram - [facility]. There are scattered areas of fibroglandular density in both breasts (category b / 25%-50% glandular tissue). Current study was also evaluated with a Computer Aided Detection (CAD) system. There are mole markers on both breasts. No significant masses, calcifications, or other findings are seen in either breast. There has been no significant interval change. IMPRESSION: NEGATIVE There is no mammographic evidence of malignancy. A 1 year screening mammogram is recommended. Based on the Tyrer Cuzick model (a risk assessment model) the patient's lifetime risk is 3.5% and her 10 year risk is 1.6%. According to the ACR, ACS, and NCCN guidelines, an annual breast MRI exam along with mammogram is recommended if the patient's lifetime risk is 20% or greater. This exam was interpreted at Station ID: [id number]. NOTE: For mammograms, a report in lay terms will be sent to the patient. Approximately 15% of breast malignancies will not be visualized mammographically. In the management of a palpable breast mass, a negative mammogram must not discourage biopsy of a clinically suspicious lesion. Electronically Signed By: Dionicio castaneda/connie:07/23/2022 08:42:40 letter sent: Normal Exam ACR BI-RADS Category 1: Negative 3341F
== END ==
PROVIDERS: PCP Registered Nurse Diabetes Educator; Referring Provider Registered Nurse Diabetes Educator; Visit Provider Registered Nurse Diabetes Educator
DX: Z12.31 Encounter for screening mammogram for malignant neoplasm of breast (principal)
CPT/HCPCS: 77063; 77067

== ENCOUNTER → 2022-11-28 11:15 | Outpatient (CLI) | payer OTHER, SELFPAY ==
[2021-03-28 14:00] VITALS: BMI 34.3
--- NOTE | 2022-11-28 | DI.CT.S_ITS ---
PROCEDURE: CT CHEST WO CON INDICATIONS: RIGHT LUNG CANCER TECHNIQUE: Noncontrast 5 mm thick sections acquired from the pulmonary apices to the posterior costophrenic angles. 1 mm lung window, 5 mm thick coronal and sagittal and 7 mm axial MIP reformats were then acquired. For radiation dose reduction, the following was used: automated exposure control, adjustment of mA and/or kV according to patient size. COMPARISON: Outside Facility, , CT PET SKULL BASE TO MID THIGH, 05/28/2018, 8:15. [facility], CT, CT CHEST WO CON, 03/24/2018, 13:03. [facility], CT, CT CHEST WO CON, 06/06/2022, 12:09. FINDINGS: Image quality: Excellent. Lungs and pleura: Severe emphysematous change. Large right upper bleb. Bronchiectasis with distal mucus airway plugging. Central airways are clear. Mild thickening along the right major fissure, (3/119), new but platelike appearance on the coronal images. Small focus of ground-glass opacity in the left upper lobe, (3/79), new. Right upper lobe lobectomy. Mediastinum: Heart size is normal. No pericardial effusion. No mediastinal adenopathy by size criteria. Thoracic aorta and central pulmonary arteries are normal in size. Esophagus is normal in caliber. No hiatal hernia. Bones and chest wall: No suspicious bony lesions. No vertebral body compression fractures. No axillary or supraclavicular adenopathy by size criteria. Thyroid gland is unremarkable. Abdomen: Visualized upper abdominal solid organs and bowel loops appear normal in the absence of contrast. Hepatic steatosis. IMPRESSION: 1. New mild thickening along the right major fissure. A platelike appearance on the coronal images. Recommend attention on follow-up CT. 2. Small focus of ground-glass opacity in the left upper lobe. This could represent infectious/inflammatory etiology. It is difficult to exclude metastatic disease. 3. Overall similar pattern of bronchiectasis and distal mucus airway plugging. Severe emphysematous change. 4. No adenopathy. 5. Hepatic steatosis. Dictated by: Tank Pineda M.D. on 11/28/2022 at 17:41 Approved by: Tank Pineda M.D. on 11/28/2022 at 17:50
== END ==
PROVIDERS: PCP Registered Nurse Diabetes Educator; Referring Provider Internal Medicine Critical Care Medicine; Visit Provider Internal Medicine Critical Care Medicine
DX: C34.91 Malignant neoplasm of unspecified part of right bronchus or lung (principal); J47.9 Bronchiectasis, uncomplicated; K76.0 Fatty (change of) liver, not elsewhere classified
CPT/HCPCS: 71250

== ENCOUNTER → 2023-04-08 08:00 | Outpatient (CLI) | payer OTHER, SELFPAY ==
[2021-03-28 14:00] VITALS: BMI 34.3
[2023-04-08 09:53] LABS: Hematocrit 38.8 % (36-46); Hemoglobin 13.2 g/dL (12.0-16.0); Hemoglobin A1C% w Est Avg Glu 7.2 % (4.0-6.0); Mean Corpuscular Hemoglobin 31.9 PG (26-34); Mean Corpuscular Volume 93.8 fL (80-100); Platelet Count 280 X10^3/uL (150-400); Red Blood Cell Count 4.14 X10^6/uL (4.0-5.2); Red Cell Distribution Width 13.2 % (11.6-14.8); White Blood Cell Count 5.4 X10^3/uL (4.5-11.0)
[2023-04-08 09:57] LABS: Alanine Aminotransferase 47 IU/L (<35); Albumin 4.1 g/dL (3.5-5.0); Albumin Globulin Ratio 1.5 (1.0-2.8); Alkaline Phosphatase 59 U/L (38-126); Aspartate Aminotransferase 33 IU/L (14-36); BUN Creatinine Ratio 28.1 (6-22); Bilirubin Total 0.3 mg/dL (0.2-1.3); Blood Urea Nitrogen 18 mg/dL (7-17); Carbon Dioxide 31 mmol/L (22-32); Chloride 101 mmol/L (98-107); Cholesterol 273 mg/dL (140-199); Estimated Glomerular Filt Rate > 60 mL/min (>60); Globulin 2.8 g/dL (1.7-4.1); Glucose 123 mg/dL (80-110); HDL Cholesterol 58 mg/dL (40-60); HEMOLYSIS < 15 (0-50); LDL Cholesterol Calculated 172 mg/dL (<100); Potassium 4.8 mmol/L (3.4-5.1); Sodium 139 mmol/L (137-145); Total Protein 6.9 g/dL (6.3-8.2); Triglycerides 214 mg/dL (35-150)
[2023-04-08 10:27] LABS: TSH w/ Reflex to FT4 1.38 uIU/mL (0.47-4.68)
== END ==
PROVIDERS: PCP Registered Nurse Diabetes Educator; Referring Provider Registered Nurse Diabetes Educator; Visit Provider Registered Nurse Diabetes Educator
DX: I10 Essential (primary) hypertension (principal); R73.01 Impaired fasting glucose; E78.5 Hyperlipidemia, unspecified; R74.8 Abnormal levels of other serum enzymes
CPT/HCPCS: 36415; 80053; 80061; 83036; 84443; 85027

== ENCOUNTER → 2023-06-22 09:53 | Outpatient (CLI) | payer OTHER, SELFPAY ==
[2021-03-28 14:00] VITALS: BMI 34.3
--- NOTE | 2023-06-22 | DI.CT.S_ITS ---
PROCEDURE: CT CHEST WO CON INDICATIONS: COPD/NON SMALL CELL CANCER RT LUNG TECHNIQUE: Noncontrast 5 mm thick sections acquired from the pulmonary apices to the posterior costophrenic angles. 1 mm lung window, 5 mm thick coronal and sagittal and 7 mm axial MIP reformats were then acquired. For radiation dose reduction, the following was used: automated exposure control, adjustment of mA and/or kV according to patient size. COMPARISON: [facility], CT, CT CHEST WO CON, 11/07/2021, 13:18. [facility], CT, CT CHEST WO CON, 11/28/2022, 11:22. FINDINGS: Image quality: Diagnostic. Lower Neck: No enlarged lymph nodes. Thyroid: No thyroid nodules which require sonographic follow up, per consensus guidelines. Axillae: No enlarged lymph nodes. Chest Wall: Unremarkable. Bones: No acute fractures. No aggressive appearing lytic or blastic osseous lesions. Mild multilevel degenerative changes of the spine. Lungs and Pleura: Compared to CT chest dated November 28, 2022, previously seen left upper lobe consolidation with surrounding ground-glass is no longer seen. Previously seen right fissure nodular linear consolidation is no longer seen. New right fissure nodular consolidation measuring 8 x 8 mm (4/150, 6/32). This does not appear linear on the coronal and sagittal planes. Similar appearance of severe apical predominant emphysema with associated diffuse bronchiectasis and distal mucus airway plugging. Similar appearance of multiple centrilobular nodules, predominantly in the left upper lobe. Stable postsurgical changes of right upper lobectomy. No pneumothorax or pleural effusions. Heart: Heart size is normal. No pericardial effusion. Thoracic Vessels: The aorta and pulmonary arteries demonstrate normal size. Mediastinum and Brittney: No enlarged lymph nodes. Esophagus: No wall thickening. Small hiatal hernia. Upper Abdomen: Visualized upper abdomen solid organs and bowel loops appear normal. IMPRESSION: History of lung cancer status post right upper lobectomy. 1. Compared to CT chest dated November 28, 2022, new right fissure nodular consolidation measuring 8 x 8 mm which is not platelike. No adenopathy. Differential includes infection, inflammation or malignancy. -Recommend repeat CT chest in 3 months versus PET-CT. 2. Previously seen left upper lobe consolidation with surrounding ground-glass and right fissure nodular platelike consolidation are no longer seen, likely transient infection or inflammation. 3. Redemonstration of severe emphysema with bronchiectasis/mucous plugging as well as left upper lobe centrilobular nodules, likely bronchiolitis of infectious or inflammatory etiology. Dictated by: Sydney Muse M.D. on 06/22/2023 at 18:22 Approved by: Sydney Muse M.D. on 06/22/2023 at 18:45
== END ==
LOC: CT 09:53
PROVIDERS: PCP Registered Nurse Diabetes Educator; Referring Provider Internal Medicine Critical Care Medicine; Visit Provider Internal Medicine Critical Care Medicine
DX: C34.91 Malignant neoplasm of unspecified part of right bronchus or lung (principal); J44.9 Chronic obstructive pulmonary disease, unspecified
CPT/HCPCS: 71250

== ENCOUNTER → 2023-07-13 08:08 | Outpatient (CLI) | payer OTHER, SELFPAY ==
[2021-03-28 14:00] VITALS: BMI 34.3
[2023-07-13 09:36] LABS: Alanine Aminotransferase 32 IU/L (<35); Albumin 4.1 g/dL (3.5-5.0); Albumin Globulin Ratio 1.5 (1.0-2.8); Alkaline Phosphatase 49 U/L (38-126); Aspartate Aminotransferase 29 IU/L (14-36); BUN Creatinine Ratio 22.4 (6-22); Bilirubin Total 0.5 mg/dL (0.2-1.3); Blood Urea Nitrogen 15 mg/dL (7-17); Calcium 9.9 mg/dL (8.4-10.2); Carbon Dioxide 32 mmol/L (22-32); Chloride 100 mmol/L (98-107); Cholesterol 190 mg/dL (140-199); Estimated Glomerular Filt Rate > 60 mL/min (>60); Globulin 2.8 g/dL (1.7-4.1); Glucose 115 mg/dL (80-110); HDL Cholesterol 64 mg/dL (40-60); HEMOLYSIS < 15 (0-50); LDL Cholesterol Calculated 92 mg/dL (<100); Sodium 139 mmol/L (137-145); Total Protein 6.9 g/dL (6.3-8.2); Triglycerides 169 mg/dL (35-150)
[2023-07-14 09:40] LABS: x Labcorp Estim. Avg Glu (eAG) 151 mg/dL (.); x Labcorp Hemoglobin A1c 6.9 % (4.8-5.6)
== END ==
LOC: LAB 08:10
PROVIDERS: PCP Registered Nurse Diabetes Educator; Referring Provider Registered Nurse Diabetes Educator; Visit Provider Registered Nurse Diabetes Educator
DX: R73.01 Impaired fasting glucose (principal); E78.5 Hyperlipidemia, unspecified; K76.0 Fatty (change of) liver, not elsewhere classified; R74.8 Abnormal levels of other serum enzymes
CPT/HCPCS: 36415; 80053; 80061; 83036

== ENCOUNTER → 2023-07-26 15:02 | Outpatient (CLI) | payer OTHER, SELFPAY ==
[2021-03-28 14:00] VITALS: BMI 34.3
--- NOTE | 2023-07-26 | DI.MG.S_ITS ---
BILATERAL DIGITAL SCREENING MAMMOGRAM 3D/2D WITH CAD: 07/26/2023 CLINICAL: Routine screening. Comparison is made to exams dated: 07/23/2022 mammogram, 07/19/2021 mammogram, 07/04/2020 mammogram, and 06/30/2019 mammogram - [facility]. There are scattered areas of fibroglandular density in both breasts (category b / 25%-50% glandular tissue). Current study was also evaluated with a Computer Aided Detection (CAD) system. There are mole markers on both breasts. No significant masses, calcifications, or other findings are seen in either breast. There has been no significant interval change. IMPRESSION: NEGATIVE There is no mammographic evidence of malignancy. A 1 year screening mammogram is recommended. Based on the Tyrer Cuzick model (a risk assessment model) the patient's lifetime risk is 3.4% and her 10 year risk is 1.6%. According to the ACR, ACS, and NCCN guidelines, an annual breast MRI exam along with mammogram is recommended if the patient's lifetime risk is 20% or greater. This exam was interpreted at Station ID: [id number]. NOTE: For mammograms, a report in lay terms will be sent to the patient. Approximately 15% of breast malignancies will not be visualized mammographically. In the management of a palpable breast mass, a negative mammogram must not discourage biopsy of a clinically suspicious lesion. Electronically Signed By: Tank mitchell/connie:07/29/2023 08:31:31 letter sent: Normal Exam ACR BI-RADS Category 1: Negative [id number]
== END ==
LOC: MAMMO 15:02
PROVIDERS: PCP Registered Nurse Diabetes Educator; Referring Provider Registered Nurse Diabetes Educator; Visit Provider Registered Nurse Diabetes Educator
DX: Z12.31 Encounter for screening mammogram for malignant neoplasm of breast (principal); R92.323 Mammographic fibroglandular density, bilateral breasts
CPT/HCPCS: 77063; 77067

== ENCOUNTER → 2023-08-08 15:02 | Outpatient (CLI) | payer OTHER, SELFPAY ==
[2021-03-28 14:00] VITALS: BMI 34.3
[2023-08-08 16:57] LABS: Appearance Urine UA CLEAR; Bilirubin Urine UA NEGATIVE (NEGATIVE); Color Urine UA YELLOW; Glucose Urine UA NEGATIVE (Negative); Ketones Urine UA NEGATIVE (NEGATIVE); Leukocyte Esterase Urine UA 2+ (NEGATIVE); Nitrite Urine UA NEGATIVE (Negative); Occult Blood Urine UA TRACE-INTACT (Negative); Protein Urine UA NEGATIVE (Negative); Specific Gravity Urine UA <=1.005 (1.000-1.035); Urobilinogen Urine UA 0.2 E.U./dL (0.2)
[2023-08-08 17:19] LABS: Bacteria Urine Few (2-10); RBC Urine 0-1/HPF (0-5/HPF); Squamous Epithelial Cell Urine 1-5 /HPF (0-5/HPF); Urine Volume 10mL (spun); WBC Urine 10-30/HPF (0-5/HPF); pH Urine UA 6.5 (4.5-8.0)
[2023-08-08 17:20] LABS: Culture Indicated Urine Specimen Cultured
== END ==
PROVIDERS: PCP Registered Nurse Diabetes Educator; Visit Provider Nurse Practitioner Family
DX: R30.0 Dysuria (principal)
CPT/HCPCS: 81001; 87077; 87086; 87186

== ENCOUNTER → 2023-08-27 12:40 | Outpatient (CLI) | payer OTHER, SELFPAY ==
[2021-03-28 14:00] VITALS: BMI 34.3
--- NOTE | 2023-08-30 09:48 | DIAB.MNT ---
Initial Diabetes Medical Nutrition Therapy Assessment Name: Maricarmen Scales Date: 08/27/23 Time: 105-205p Dx: Type II Diabetes Maricarmen presents for initial DM visit. Reports h/o freq prednisone tx r/t COPD exacerbations. This likely impacted diabetes risk. This is a new dx for her, diagnosed with last two hgA1c of 7.2% 04/2023 and 6.9% 07/2023. Reports robust FH of COPD and lunch cancer. Only family member reported with DM is sister, also has h/o steroid tx. Reports joining weight watchers and enjoying it. Feels this is sustainable for her. She is portioning out CHO and weighing proteins. Has questions regarding protein portions. Reports great reduction in CHO since diagnosis. Overall, diet recall indicates good balance of macronutrients and consumption of fruits and veggies. Has questions regarding fpc nature of dm meds and pathophysiology. Diet Recall: 7a: 1/4c berries, 1/2c quick cook oats, 1/2c low CHO yogurt, long and flax 1p: eggs, tomatoes, turkey sausage, cheese sn: carrots, zucchini, popcorn 3 cups 6p: chicken, spinach, half sweet potato, cottage cheese sn: 1/4 apple or cutie orange water: 72-80oz, 4c coffee with creamer Anthropometrics: Ht: 64 Wt: 185.6# reported Weight history: 195# last PCP visit 07/2023 Physical Activity: Rowing/elliptical, cardiopulmonary 2x per week and gym with sister other days for circuit training. Doing 5ks with sister. Self-Monitoring Blood Glucose: Checking FB, 96, 97, 107, 98 mg/dl. All in goal. No pc readings for review. Diabetes Medications: 500mg Metformin BID Pertinent Labs: hgA1c: 7.2% 04/2023 6.9% 07/2023 Past Medical History: (Last Updated 07/18/23 @ 10:35 by SCOOBY Vazquez) Asthma Atrial flutter (~01/2019) Bronchiectasis Chemotherapy-induced neuropathy Feet Chicken pox (~1967) COPD (chronic obstructive pulmonary disease) Cough Diabetes mellitus type 2, controlled, without complications Dyslipidemia Emphysema lung Essential hypertension Far-sighted Fibroids (~1992) Frequent episodes of pneumonia GERD (gastroesophageal reflux disease) Heavy menstrual period (~1992) Hepatic steatosis History of lung cancer Hyperglycemia Impaired fasting blood sugar Liver enzyme elevation Ovarian cyst (~2017) Left Pneumothorax (~2018) After surgery Port-A-Cath in place (11/06/18) Ringing of ears r/t chemo Shortness of breath Sinus drainage Skin lesion Vertigo (~2012) Nutrition Rx: Carbohydrates: Meal:30-45g Snack:15-30g Nutrition Diagnosis: - Nutrition and food related knowledge deficit r/t new dx Dm aeb hgA1c >6.5% Intervention: This participant was very receptive. Provided appropriate educational handouts. Discussed the following topics: Completed intake assessment. Discussed barriers to care. Pathophysiology of T2DM HgA1c, its correlation to blood glucose numbers, and rationale for goal Importance of self-monitoring, how often, and when to check. Suggested checking at different times to evaluate meals Plate Method, impact of macronutrients on blood sugar, meal timing, carbohydrate counting, pairing macronutrients and spreading out carbohydrates for better blood glucose management Recommended servings for carbohydrates at meals and snacks Heart health nutrition Role of physical activity Protein recs Medication management: impact of steroids on BG, Metformin action/SE/use Created SMART goals for patient self-care and success. Goals: Continue with diet changes Pair CHO/Pro for meals/snacks Check a few pc readings for review Follow-up: [facility] CHEW follow-up in 3 months. Offered sooner f/u however Maricarmen would like to f/u after next hgA1c. Encouraged her to call or message with sooner f/u prn. She agreed. Alysia Seth RDN, [facility] [place] Certified Diabetes Care and Livestock Farm Manager P: [phone] Thank you for this referral
== END ==
PROVIDERS: PCP Registered Nurse Diabetes Educator; Referring Provider Registered Nurse Diabetes Educator; Visit Provider Registered Nurse Diabetes Educator
DX: E11.9 Type 2 diabetes mellitus without complications (principal); Z79.84 Long term (current) use of oral hypoglycemic drugs; Z71.3 Dietary counseling and surveillance; Z79.52 Long term (current) use of systemic steroids
CPT/HCPCS: 97802

== ENCOUNTER → 2023-09-16 08:32 | Outpatient (CLI) | payer OTHER, SELFPAY ==
[2021-03-28 14:00] VITALS: BMI 34.3
== END ==
LOC: LAB 08:35
PROVIDERS: PCP Registered Nurse Diabetes Educator; Referring Provider Internal Medicine Critical Care Medicine; Visit Provider Internal Medicine Critical Care Medicine
DX: J47.9 Bronchiectasis, uncomplicated (principal)
CPT/HCPCS: 87070; 87077; 87186; 87205

== ENCOUNTER → 2023-09-19 14:38 | Outpatient (CLI) | payer OTHER, SELFPAY ==
[2021-03-28 14:00] VITALS: BMI 34.3
--- NOTE | 2023-09-19 | DI.CT.S_ITS ---
PROCEDURE: CT CHEST WO CON INDICATIONS: Chronic COPD, Non-small cell cancer of right lung TECHNIQUE: Noncontrast 5 mm thick sections acquired from the pulmonary apices to the posterior costophrenic angles. 1 mm lung window, 5 mm thick coronal and sagittal and 7 mm axial MIP reformats were then acquired. For radiation dose reduction, the following was used: automated exposure control, adjustment of mA and/or kV according to patient size. COMPARISON: [facility], CT, CT CHEST WO [facility], 06/22/2023, 10:01. FINDINGS: Image quality: Diagnostic. Lower Neck: No enlarged lymph nodes. Thyroid: No thyroid nodules which require sonographic follow up, per consensus guidelines. Axillae: No enlarged lymph nodes. Chest Wall: Unremarkable. Bones: Unremarkable. Lungs and Pleura: Remote right upper lobectomy with associated resection clips at the right upper lobe bronchus origin. No pneumothorax or pleural effusions. Severe emphysematous change again noted. The spiculated appearing Anne fissural nodule present in the right lung on the most recent previous study is no longer present, consistent with resolution of inflammation. However, there is a new subsolid spiculated nodular density in the anterior aspect of the left upper lobe which is well seen on axial lung window image 120 of series 3. Cannot exclude a developing malignancy. However, focal inflammation or infection is also possible. Again noted is bronchiectasis and mucous plugging and tree-in-bud opacities present in the upper lung gonzalez bilaterally, left greater than right. Heart: Heart size is normal. No pericardial effusion. Thoracic Vessels: The aorta and pulmonary arteries demonstrate normal size. Mediastinum and Brittney: No enlarged lymph nodes. Esophagus: No wall thickening. No hiatal hernia. Upper Abdomen: Visualized upper abdomen solid organs and bowel loops appear normal. IMPRESSION: 1. Resolution of previous nodular density in the right lung, which had been suspicious for possible malignancy. 2. Development of a new subsolid spiculated density in the anterior right upper lobe. Differential includes developing malignancy versus a focus of infection or inflammation. 3. Severe underlying emphysematous change and findings consistent with chronic inflammation and/or infection. Comment: Recommend 3 month follow-up CT. Dictated by: Laith Hough M.D. on 09/19/2023 at 16:51 Approved by: Laith Hough M.D. on 09/19/2023 at 17:00
== END ==
LOC: CT 14:38
PROVIDERS: PCP Registered Nurse Diabetes Educator; Referring Provider Internal Medicine Critical Care Medicine; Visit Provider Internal Medicine Critical Care Medicine
DX: C34.91 Malignant neoplasm of unspecified part of right bronchus or lung (principal); J44.9 Chronic obstructive pulmonary disease, unspecified; R91.1 Solitary pulmonary nodule
CPT/HCPCS: 71250

== ENCOUNTER → 2023-10-07 07:15 | Outpatient (CLI) | payer OTHER, SELFPAY ==
[2021-03-28 14:00] VITALS: BMI 34.3
[2023-10-07 08:18] LABS: Hemoglobin A1C% w Est Avg Glu 6.7 % (4.0-6.0)
[2023-10-07 10:46] LABS: Creatinine Urine Random 92.9 mg/dL
[2023-10-07 10:54] LABS: Microalbumin Urine Random < 0.6 mg/dL (0-1.6)
== END ==
PROVIDERS: PCP Registered Nurse Diabetes Educator; Referring Provider Registered Nurse Diabetes Educator; Visit Provider Registered Nurse Diabetes Educator
DX: E11.9 Type 2 diabetes mellitus without complications (principal)
CPT/HCPCS: 36415; 82043; 82570; 83036

== ENCOUNTER → 2023-11-12 12:46 | Outpatient (CLI) | payer OTHER, SELFPAY ==
[2021-03-28 14:00] VITALS: BMI 34.3
--- NOTE | 2023-11-12 12:57 | DIAB.MNTFU ---
Follow-up Diabetes Medical Nutrition Therapy Assessment Name: Maricarmen Scales Date: 11/12/23 Time: 1-145p Dx: Type II Diabetes Maricarmen presents for DM visit. Reports h/o freq prednisone tx r/t COPD exacerbations. Had a lung exacerbation in September with steroid and antibiotic tx. Reports lows of 52mg/dl with symptoms of weakness, dizziness. Looked up antibiotics (Levofloxacin) and found that it could cause lows. Cut back Metformin by 1/2 (500mg 1x per day). Carries low tx with her. Also structured meds in a way that she no longer has lows x a few weeks. Now back to Metformin BID. Has been tx lows with candy, though provider suggested nuts. Feels she is at a plateau with wt loss. Does report losing inches in waist line. Questions about added sugars and moderation of sweets Questions about toes curling under and barefoot shoes with thin soles. Goes barefoot in home. Has eye appt scheduled. Sees dentist q 6 month Diet Recall: 7a: 1/4c berries, 1.5c cheerios with milk, 1/2c low CHO yogurt, long and flax 12-1p: eggs, small naan with light cheese sn: hahn tomatoes, carrots 6p: small bun, lean burger with 10 homemade fries and green beans 7-730p: 1/4 apple or cutie orange water: 72-80oz, 4c coffee with creamer Anthropometrics: Ht: 64 Wt: 182.4# reported Physical Activity: Rowing/elliptical, cardiopulmonary 2x per week and gym with sister other days for circuit training. Doing 5ks with sister. Self-Monitoring Blood Glucose (mg/dl): Checking FB, 97, 112 Lows: 53mg/dl (10am) Postprandial: 98 Diabetes Medications: 500mg Metformin BID Pertinent Labs: hgA1c: 7.2% 04/2023 6.9% 07/2023 6.7% 10/2023 Past Medical History: (Last Updated 07/18/23 @ 10:35 by SCOOBY Vazquez) Asthma Atrial flutter (~01/2019) Bronchiectasis Chemotherapy-induced neuropathy Feet Chicken pox (~1967) COPD (chronic obstructive pulmonary disease) Cough Diabetes mellitus type 2, controlled, without complications Dyslipidemia Emphysema lung Essential hypertension Far-sighted Fibroids (~1992) Frequent episodes of pneumonia GERD (gastroesophageal reflux disease) Heavy menstrual period (~1992) Hepatic steatosis History of lung cancer Hyperglycemia Impaired fasting blood sugar Liver enzyme elevation Ovarian cyst (~2017) Left Pneumothorax (~2018) After surgery Port-A-Cath in place (11/06/18) Ringing of ears r/t chemo Shortness of breath Sinus drainage Skin lesion Vertigo (~2012) Nutrition Rx: Carbohydrates: Meal:30-45g Snack:15-30g Nutrition Diagnosis: - Nutrition and food related knowledge deficit r/t new dx Dm aeb hgA1c >6.5%- improved - Nutrition and food related knowledge deficit r/t needing more info on meal timing and tx lows aeb pt report - new Intervention: This participant was very receptive. Provided appropriate educational handouts. Discussed the following topics: Blood sugar review and trends. Meal/snack timing in evening for HS snack prn Tx of lows with quick carb for BG <70mg/dl. Added sugars recs Potential for podiatry referral Body composition, monitoring body changes vs wt. Foot health and precautions Created SMART goals for patient self-care and success. Goals: Continue with diet changes- met Pair CHO/Pro for meals/snacks- continue Check a few pc readings for review- in progress Set alarm for pc readings- new Ask PCP about podiatry referral- new Pust HS snack later if having higher CHO dinner- new Follow-up: DONA CHEW follow-up in prn. Encouraged her to call or message prn. Overall, Maricarmen is managing her DM very well. Alysia Seth, DONA, [facility] Certified Diabetes Care and Subway Conductor P: [phone] Thank you for this referral
== END ==
LOC: DIET 12:47
PROVIDERS: PCP Registered Nurse Diabetes Educator; Referring Provider Registered Nurse Diabetes Educator
DX: E11.9 Type 2 diabetes mellitus without complications (principal); Z79.84 Long term (current) use of oral hypoglycemic drugs; Z79.52 Long term (current) use of systemic steroids; Z71.3 Dietary counseling and surveillance
CPT/HCPCS: 97803

== ENCOUNTER → 2023-12-07 09:43 | Outpatient (CLI) | payer OTHER, SELFPAY ==
[2021-03-28 14:00] VITALS: BMI 34.3
--- NOTE | 2023-12-07 | DI.CT.S_ITS ---
PROCEDURE: CT CHEST WO CON INDICATIONS: BRONCHIECTASIS, PULMONARY INFILTRATE TECHNIQUE: Noncontrast 2.0-2.5 mm thick sections acquired from the pulmonary apices to the posterior costophrenic angles. 7 mm thick axial MIP, and 5 mm coronal and sagittal reformats were then acquired. For radiation dose reduction, the following was used: automated exposure control, adjustment of mA and/or kV according to patient size. COMPARISON: [facility], CT, CT CHEST WO CON, 09/19/2023, 14:48. FINDINGS: Image quality: Diagnostic. Lower Neck: No enlarged lymph nodes. Thyroid: No thyroid nodules which require sonographic follow up, per consensus guidelines. Axillae: No enlarged lymph nodes. Chest Wall: Unremarkable. Bones: No acute fractures. No aggressive appearing lytic or blastic osseous lesions. Mild multilevel degenerative changes of the spine. Lungs and Pleura: No pneumothorax or pleural effusions. Compared to CT chest dated September 19, 2023. Postsurgical changes of right upper lobectomy. Severe apical predominant emphysema with large bulla in the right apex. Previously seen sub solid spiculated nodular density in the anterior aspect of the left upper lobe is no longer present; however, there is a new left upper lobe basilar segment subsolid nodular density measuring 2 x 1.2 cm (3/131). As before, there is diffuse bronchiectasis with areas of mucous plugging and tree in bud nodules predominantly in the bilateral upper lobes, left greater than right Heart: Heart size is normal. No pericardial effusion. Thoracic Vessels: The aorta and pulmonary arteries demonstrate normal size. Mediastinum and Brittney: No enlarged lymph nodes. Esophagus: No wall thickening. Small hiatal hernia. Upper Abdomen: Visualized upper abdomen solid organs and bowel loops appear normal. Partially visualized colonic diverticulosis without diverticulitis. IMPRESSION: 1. Compared to CT chest dated September 19, 2023, previously seen sub solid spiculated nodular density in the anterior aspect of the left upper lobe is no longer present; however, there is a new left upper lobe basilar segment subsolid nodular density measuring 2 x 1.2 cm. Differential includes infection, inflammation or neoplasm. LUNG-RADS 3; recommend repeat CT chest in 3 months. 2. Stable postsurgical sequela of right upper lobectomy. 3. Similar appearance of severe emphysema with bilateral diffuse bronchiectasis and areas of mucous plugging/tree-in-bud nodules compatible with sequela of chronic infection and/or inflammation. Dictated by: Sydney Muse M.D. on 12/07/2023 at 15:40 Approved by: Sydney Muse M.D. on 12/07/2023 at 15:50
== END ==
PROVIDERS: PCP Registered Nurse Diabetes Educator; Referring Provider Internal Medicine Critical Care Medicine; Visit Provider Internal Medicine Critical Care Medicine
DX: C34.91 Malignant neoplasm of unspecified part of right bronchus or lung (principal); J43.9 Emphysema, unspecified; J47.9 Bronchiectasis, uncomplicated; R91.8 Other nonspecific abnormal finding of lung field
CPT/HCPCS: 71250

== ENCOUNTER → 2024-03-06 11:38 | Outpatient (CLI) | payer MEDICARE, OTHER, SELFPAY ==
[2021-03-28 14:00] VITALS: BMI 34.3
--- NOTE | 2024-03-06 11:40 | DI.CT.S_ITS ---
PROCEDURE: CT CHEST WO CON INDICATIONS: 3 MONTH FU-BRONCHIECTASIS W ACUTE EXACERBATION TECHNIQUE: Noncontrast 5 mm thick sections acquired from the pulmonary apices to the posterior costophrenic angles. 1 mm lung window, 5 mm thick coronal and sagittal and 7 mm axial MIP reformats were then acquired. For radiation dose reduction, the following was used: automated exposure control, adjustment of mA and/or kV according to patient size. COMPARISON: [facility], CT, CT CHEST WO [facility], 12/07/2023, 9:51. FINDINGS: Image quality: Diagnostic Lungs and pleura: Emphysematous changes. This particularly involves the right lung. There are numerous centrilobular nodules throughout the lungs parenchyma, changed in distribution compared to prior. No dense consolidation or pleural effusion. The previously identified basal left upper lobe 2 cm region is resolved. Bronchiectasis is particularly seen in the left upper lung Mediastinum, heart, and esophagus: Mild thickening at the gastroesophageal junction, nonspecific. No pathologic lymph nodes by size criteria. Normal heart size Right hilar postsurgical changes. Chest wall and thyroid: Unremarkable Upper abdomen: Gross abnormality, partially visualized. Bones: No acute or suspicious osseous findings. IMPRESSION: Numerous areas of centrilobular nodules, bronchiectasis, and emphysema. No dominant single nodule is seen. LUNG-RADS 0. Overall suspicion for a clinically significant current malignancy is low. Consider low-dose follow-up chest CT in 3-6 months. Other findings as above. Dictated by: Jayjay Chamberlain M.D. on 03/06/2024 at 14:59 Approved by: Jayjay Chamberlain M.D. on 03/06/2024 at 15:07
== END ==
PROVIDERS: PCP Registered Nurse Diabetes Educator; Referring Provider Internal Medicine Critical Care Medicine; Visit Provider Internal Medicine Critical Care Medicine
DX: J47.1 Bronchiectasis with (acute) exacerbation (principal); R91.8 Other nonspecific abnormal finding of lung field; J43.9 Emphysema, unspecified
CPT/HCPCS: 71250

== ENCOUNTER → 2024-04-02 08:47 | Outpatient (CLI) | payer MEDICARE, OTHER, SELFPAY ==
[2021-03-28 14:00] VITALS: BMI 34.3
[2024-04-02 10:24] LABS: Hemoglobin 13.1 g/dL (12.0-16.0); Mean Corpuscular HGB Conc 33.5 % (30-36); Mean Corpuscular Hemoglobin 32.2 PG (26-34); Mean Corpuscular Volume 96.2 fL (80-100); Platelet Count 244 X10^3/uL (150-400); Red Blood Cell Count 4.06 X10^6/uL (4.0-5.2); Red Cell Distribution Width 13.4 % (11.6-14.8); White Blood Cell Count 6.9 X10^3/uL (4.5-11.0)
[2024-04-02 10:47] LABS: Hemoglobin A1C% w Est Avg Glu 6.2 % (4.0-6.0)
[2024-04-02 10:49] LABS: Alanine Aminotransferase 22 IU/L (<35); Albumin 4.1 g/dL (3.5-5.0); Albumin Globulin Ratio 1.6 (1.0-2.8); Alkaline Phosphatase 54 U/L (38-126); Aspartate Aminotransferase 25 IU/L (14-36); BUN Creatinine Ratio 34.4 (6-22); Bilirubin Total 0.6 mg/dL (0.2-1.3); Blood Urea Nitrogen 22 mg/dL (7-17); Calcium 10.1 mg/dL (8.4-10.2); Carbon Dioxide 29 mmol/L (22-32); Chloride 104 mmol/L (98-107); Cholesterol 167 mg/dL (140-199); Estimated Glomerular Filt Rate > 60 mL/min (>60); Globulin 2.6 g/dL (1.7-4.1); Glucose 97 mg/dL (80-110); HDL Cholesterol 61 mg/dL (40-60); HEMOLYSIS < 15 (0-50); LDL Cholesterol Calculated 81 mg/dL (<100); Potassium 4.9 mmol/L (3.4-5.1); Sodium 138 mmol/L (137-145); Total Protein 6.7 g/dL (6.3-8.2); Triglycerides 123 mg/dL (35-150)
[2024-04-02 11:19] LABS: Creatinine Urine Random 96.73 mg/dL
[2024-04-02 11:24] LABS: Microalbumin Urine Random 1.6 mg/dL (0-1.6)
[2024-04-02 11:25] LABS: TSH w/ Reflex to FT4 1.44 uIU/mL (0.47-4.68)
== END ==
PROVIDERS: PCP Registered Nurse Diabetes Educator; Referring Provider Registered Nurse Diabetes Educator; Visit Provider Registered Nurse Diabetes Educator
DX: E11.9 Type 2 diabetes mellitus without complications (principal); I10 Essential (primary) hypertension; E78.5 Hyperlipidemia, unspecified; K76.0 Fatty (change of) liver, not elsewhere classified
CPT/HCPCS: 36415; 80053; 80061; 82043; 82570; 83036; 84443; 85027

== ENCOUNTER → 2024-04-07 12:03 | Outpatient (CLI) | payer MEDICARE, OTHER, SELFPAY ==
[2021-03-28 14:00] VITALS: BMI 34.3
--- NOTE | 2024-04-07 12:05 | DI.RAD.S_ITS ---
PROCEDURE: XR CHEST 2V INDICATIONS: eval acute cough, R/O pneumonia TECHNIQUE: 2 views of the chest were acquired. COMPARISON: [facility], CT, CT CHEST WO CON, 03/06/2024, 11:45. [facility], CR, XR CHEST 2V, 08/30/2019, 7:32. FINDINGS: Surgical changes and devices: None. Lungs and pleura: Chronic reticulonodular interstitial markings bilaterally. No acute consolidation. No pleural effusions or pneumothorax. Mediastinum: Mediastinal contours are normal. Heart size is normal. Bones and chest wall: No suspicious bony abnormalities. Soft tissues appear unremarkable. IMPRESSION: No acute cardiopulmonary abnormality is seen. Approved by: Kiko Mcintosh M.D. on 04/07/2024 at 12:47
== END ==
PROVIDERS: PCP Registered Nurse Diabetes Educator; Referring Provider Registered Nurse Diabetes Educator; Visit Provider Registered Nurse Diabetes Educator
DX: R05.1 Acute cough (principal)
CPT/HCPCS: 71046

== ENCOUNTER → 2024-04-08 07:46 | Outpatient (CLI) | payer MEDICARE, OTHER, SELFPAY ==
[2021-03-28 14:00] VITALS: BMI 34.3
== END ==
PROVIDERS: PCP Registered Nurse Diabetes Educator; Referring Provider Internal Medicine Critical Care Medicine; Visit Provider Internal Medicine Critical Care Medicine
DX: J44.9 Chronic obstructive pulmonary disease, unspecified (principal); I48.92 Unspecified atrial flutter; G62.9 Polyneuropathy, unspecified; D21.9 Benign neoplasm of connective and other soft tissue, unspecified; K21.9 Gastro-esophageal reflux disease without esophagitis; K76.0 Fatty (change of) liver, not elsewhere classified; R74.01 Elevation of levels of liver transaminase levels
CPT/HCPCS: 94618

== ENCOUNTER → 2024-05-11 09:46 | Outpatient (CLI) | payer MEDICARE, OTHER, SELFPAY ==
[2021-03-28 14:00] VITALS: BMI 34.3
--- NOTE | 2024-05-11 09:47 | DI.RAD.S_ITS ---
PROCEDURE: XR CHEST 2V INDICATIONS: COPD exac 2 wk; worse sx 4D completed prednisone 1 wk ago TECHNIQUE: 2 views of the chest were acquired. COMPARISON: [facility], CR, XR CHEST 2V, 04/07/2024, 12:09. [facility], CR, XR CHEST 1V, 08/06/2020, 23:52. FINDINGS: Surgical changes and devices: None. Lungs and pleura: Lungs are clear. No pleural effusions or pneumothorax. Mediastinum: Mediastinal contours are normal. Heart size is normal. Bones and chest wall: No suspicious bony abnormalities. Soft tissues appear unremarkable. IMPRESSION: No acute cardiopulmonary abnormality is seen. Dictated by: Omar Soni M.D. on 05/11/2024 at 10:45 Approved by: Omar Soni M.D. on 05/11/2024 at 10:45
== END ==
PROVIDERS: PCP Registered Nurse Diabetes Educator; Referring Provider Student in an Organized Health Care Education/Training Program; Visit Provider Student in an Organized Health Care Education/Training Program
DX: J44.1 Chronic obstructive pulmonary disease with (acute) exacerbation (principal)
CPT/HCPCS: 71046

== ENCOUNTER → 2024-08-17 07:59 | Outpatient (CLI) | payer MEDICARE, OTHER, SELFPAY ==
[2021-03-28 14:00] VITALS: BMI 34.3
--- NOTE | 2024-08-17 08:00 | DI.MG.S_ITS ---
MM screening mammo BI: 08/17/2024. BI-RADS: 1 CLINICAL: 64-year old female for bilateral screening mammogram. Tyrer-Cuzick lifetime risk of 5.5%. No personal or first-degree family history of breast cancer. PRIOR EXAMS 07/26/2023, 07/23/2022, 07/19/2021, 07/04/2020, 06/30/2019. MAMMOGRAPHY TECHNIQUE: 2D and 3D (tomosynthesis) digital mammographic views obtained, with additional images as needed for full coverage. Current study was also evaluated with a Computer Aided Detection (CAD) system. DENSITY B. There are scattered areas of fibroglandular density. MAMMOGRAPHY FINDINGS Bilateral: No suspicious mass, asymmetry, microcalcification, or other abnormality seen. IMPRESSION: * No evidence of malignancy. RECOMMENDATIONS Bilateral * Annual screening mammography. OVERALL ASSESSMENT CATEGORY BI-RADS-1: Negative. The [employer] recommends annual screening mammography beginning at age 40 for women with average risk of breast cancer. ELECTRONICALLY SIGNED: Norma Hester M.D. on 08/17/2024 at 06:31:21 PM PT Interpreting Station ID: [id number]
== END ==
PROVIDERS: PCP Registered Nurse Diabetes Educator; Referring Provider Registered Nurse Diabetes Educator; Visit Provider Registered Nurse Diabetes Educator
DX: Z12.31 Encounter for screening mammogram for malignant neoplasm of breast (principal)
CPT/HCPCS: 77063; 77067

== ENCOUNTER → 2024-08-22 14:46 | Outpatient (CLI) | payer MEDICARE, OTHER, SELFPAY ==
[2021-03-28 14:00] VITALS: BMI 34.3
--- NOTE | 2024-08-22 14:50 | DI.CT.S_ITS ---
PROCEDURE: CT CHEST WO CON INDICATIONS: F/U LUNG INFILTRATES/NODULES TECHNIQUE: Noncontrast 5 mm thick sections acquired from the pulmonary apices to the posterior costophrenic angles. 1 mm lung window, 5 mm thick coronal and sagittal and 7 mm axial MIP reformats were then acquired. For radiation dose reduction, the following was used: automated exposure control, adjustment of mA and/or kV according to patient size. COMPARISON: [facility], CT, CT CHEST WO CON, 03/06/2024, 11:45. FINDINGS: Image quality: Diagnostic Lungs and pleura: Background significant emphysema. Numerous areas of bronchiectasis, air trapping, centrilobular nodules, and underlying emphysema. A mostly solid nodule is seen in the left upper lung (3/44) measuring 7 mm. No pleural effusions. Mediastinum, heart, and esophagus: Small hiatal hernia. Postsurgical changes along the right hilum. No enlarged lymph nodes by size criteria. Chest wall and thyroid: Unremarkable Upper abdomen: Unremarkable on these noncontrast images Bones: No aggressive appearing focal osseous abnormality. IMPRESSION: Numerous centrilobular nodules, bronchiectasis, mosaic attenuation, and emphysema again seen. These are favored to be infectious/inflammatory with chronic bronchiolitis. A new nodule is seen in the left upper lung measuring up to 7 mm, possibly also infectious/inflammatory. However, given patient's underlying risk factors, continued surveillance imaging is suggested again in 3-6 months at clinical discretion. Dictated by: Jayjay Chamberlain M.D. on 08/22/2024 at 16:59 Approved by: Jayjay Chamberlain M.D. on 08/22/2024 at 17:05
== END ==
LOC: CT 14:48
PROVIDERS: PCP Registered Nurse Diabetes Educator; Referring Provider Internal Medicine Critical Care Medicine; Visit Provider Internal Medicine Critical Care Medicine
DX: C34.91 Malignant neoplasm of unspecified part of right bronchus or lung (principal); R91.8 Other nonspecific abnormal finding of lung field; K44.9 Diaphragmatic hernia without obstruction or gangrene; J43.9 Emphysema, unspecified; J47.9 Bronchiectasis, uncomplicated
CPT/HCPCS: 71250

== ENCOUNTER → 2024-10-05 08:06 | Outpatient (CLI) | payer MEDICARE, OTHER, SELFPAY ==
[2021-03-28 14:00] VITALS: BMI 34.3
== END ==
PROVIDERS: PCP Registered Nurse Diabetes Educator; Referring Provider Registered Nurse Diabetes Educator; Visit Provider Registered Nurse Diabetes Educator
DX: E11.9 Type 2 diabetes mellitus without complications (principal)
CPT/HCPCS: 36415; 83036

== ENCOUNTER → 2025-04-12 08:01 | Outpatient (CLI) | payer MEDICARE, OTHER, SELFPAY ==
[2021-03-28 14:00] VITALS: BMI 34.3
[2025-04-12 08:52] LABS: Hematocrit 39.7 % (36-46); Hemoglobin 13.5 g/dL (12.0-16.0); Mean Corpuscular HGB Conc 34.0 % (30-36); Mean Corpuscular Hemoglobin 32.3 PG (26-34); Mean Corpuscular Volume 95.1 fL (80-100); Platelet Count 226 X10^3/uL (150-400)
[2025-04-12 09:00] LABS: Hemoglobin A1C% w Est Avg Glu 6.3 % (4.0-6.0)
[2025-04-12 09:22] LABS: Alanine Aminotransferase 25 IU/L (<35); Albumin 4.4 g/dL (3.5-5.0); Albumin Globulin Ratio 1.7 (1.0-2.8); Alkaline Phosphatase 46 U/L (38-126); Blood Urea Nitrogen 26 mg/dL (7-17); Calcium 10.0 mg/dL (8.4-10.2); Carbon Dioxide 30 mmol/L (22-32); Chloride 102 mmol/L (98-107); Cholesterol 167 mg/dL (140-199); Estimated Glomerular Filt Rate > 60 mL/min (>60); Globulin 2.6 g/dL (1.7-4.1); Glucose 115 mg/dL (70-99); HDL Cholesterol 72 mg/dL (40-60); HEMOLYSIS < 15 (0-50); Potassium 4.3 mmol/L (3.4-5.1); Sodium 140 mmol/L (137-145); Total Protein 7.0 g/dL (6.3-8.2); Triglycerides 84 mg/dL (35-150)
[2025-04-12 09:48] LABS: TSH w/ Reflex to FT4 2.38 uIU/mL (0.47-4.68)
[2025-04-12 10:34] LABS: Microalbumi Creatinin Ratio Ur 16.2 ug/mg CR (<30)
== END ==
PROVIDERS: PCP Registered Nurse Diabetes Educator; Referring Provider Registered Nurse Diabetes Educator; Visit Provider Registered Nurse Diabetes Educator
DX: E11.9 Type 2 diabetes mellitus without complications (principal); I10 Essential (primary) hypertension; E78.5 Hyperlipidemia, unspecified; K76.0 Fatty (change of) liver, not elsewhere classified
CPT/HCPCS: 36415; 80053; 80061; 82043; 82570; 83036; 84443; 85027

== ENCOUNTER → 2025-06-02 10:10 | Outpatient (CLI) | payer MEDICARE, OTHER, SELFPAY ==
[2021-03-28 14:00] VITALS: BMI 34.3
--- NOTE | 2025-06-02 10:12 | DI.RAD.S_ITS ---
PROCEDURE: XR DEXA AXIAL SKELETON INDICATIONS: eval, at increased risk for osteoporosis COMPARISON: None. FINDINGS: Lumbar Spine: Bone mineral density 0.866 g/cm2, T score -1.6, osteopenia. Left Femoral Neck: Bone mineral density 0.616 g/cm2, T score -2.1 osteopenia. Left Hip: Bone mineral density 0.843 g/cm2, T score -0.8, normal. Fracture Risk Calculation (when applicable): 10-year fracture risk of a major osteoporotic fracture 11 percent and of a hip fracture 1.7 percent. (T score greater or equal to -1.0 to: NORMAL) (T score from -1.1 to -2.4: OSTEOPENIA) (T score less than or equal to -2.5: OSTEOPOROSIS) IMPRESSION: Osteopenia elevates the patient's 10 year fracture risk as described. Follow-up guidelines as follows: Osteoporosis: Consider a repeat DEXA and Vertebral Fracture Assessment (VFA) exam in 2 years or sooner if medically necessary, to reassess this patient's status. Osteopenia: Consider a repeat DEXA in 2-3 years to reassess this patient's status, or if there is a new clinical indication. Normal: Consider a repeat DEXA in 5 years or sooner, or if there is a new clinical indication. All treatment decisions require clinical judgment and consideration of individual patient factors, including patient preferences, comorbidities, previous drug use, risk factors not captured in the FRAX model (e.g., frailty, falls, vitamin D deficiency, increased bone turnover, interval significant decline in bone density ) and possible under- or over-estimation of fracture risk by FRAX. In addition, the NOF Guide recommends that FDA-approved medical therapies be considered in postmenopausal women and men age >= 50 years with a: * Hip or vertebral (clinical or morphometric) fracture * T-score of <=-2.5 at the spine or hip * Ten-year fracture probability by FRAX of >= 3% for hip fracture or >=20% for major osteoporotic fracture. Dictated by: Suzanna Rodriguez M.D. on 06/02/2025 at 15:54 Approved by: Suzanna Rodriguez M.D. on 06/02/2025 at 15:56
== END ==
PROVIDERS: PCP Registered Nurse Diabetes Educator; Referring Provider Registered Nurse Diabetes Educator; Visit Provider Registered Nurse Diabetes Educator
DX: M85.89 Other specified disorders of bone density and structure, multiple sites (principal); Z78.0 Asymptomatic menopausal state
CPT/HCPCS: 77080